=== PATIENT | male | born 1965 | race Caucasian/White ===

== ENCOUNTER 2016-11-22 | Outpatient (CLI) | payer MEDICAID | END 2016-11-22 09:37 | disposition critical access hospital (66) | CPT/HCPCS: A0425; A0429 ==

== ENCOUNTER 2016-11-22 10:05 | Inpatient (IN) | payer MEDICAID ==
[2016-11-22] MEDS ORDERED: LORazepam 2 MG/ML SYRINGE IVP STA ×2 (10:21→11:55)
[2016-11-22] MEDS ORDERED: SODIUM CHLORIDE 0.9% 1,000 ML IV ONE (10:21)
[2016-11-22] MEDS ORDERED: FOLIC ACID INJ 1 MG, THIAMINE INJ 100 MG, MAGNESIUM SULFATE 2 GM, MULTIVITAMIN 10 ML in... IV STA ×5 (10:22)
[2016-11-22] MEDS ORDERED: LORazepam 2 MG/ML SYRINGE ONE ×2 (10:36→11:55)
[2016-11-22] MEDS ORDERED: HYDROcod/ACETAM 10 MG/325 MG TABLET PO PRN (13:24)
[2016-11-22] MEDS ORDERED: PROCHLORPERAZINE 10 MG/2 ML VIAL IVP PRN (13:24)
[2016-11-22] MEDS ORDERED: ONDANSETRON 4 MG/2 ML VIAL IVP PRN (13:24)
[2016-11-22] MEDS ORDERED: ACETAMINOPHEN 325 MG TABLET PO PRN (13:24)
[2016-11-22] MEDS ORDERED: MAGNESIUM SULFATE 2 GRAM 50 ML IV SCH (13:24)
[2016-11-22] MEDS ORDERED: HYDROcod/ACETAM 5/325 MG TABLET PO PRN (13:24)
[2016-11-22] MEDS: LORazepam 2 MG/ML SYRINGE IVP PRN ×2 (14:37→20:44)
[2016-11-22] MEDS: SODIUM CHLORIDE FLUSH 0.9% 10 ML SYRINGE IVP SCH ×2 (14:38→17:33)
[2016-11-22] MEDS: D5NS W/20 MEQ KCL 1,000 ML IV SCH (15:06)
[2016-11-22] MEDS: PANTOPRAZOLE 40 MG VIAL IVP SCH (17:32)
[2016-11-22] MEDS: SODIUM CHLORIDE FLUSH 0.9% 10 ML SYRINGE IVP PRN ×2 (17:33→20:45)
[2016-11-23] MEDS: PANTOPRAZOLE 40 MG VIAL IVP SCH ×2 (06:14→16:28)
[2016-11-23] MEDS: SODIUM CHLORIDE FLUSH 0.9% 10 ML SYRINGE IVP SCH ×3 (06:15→20:01)
[2016-11-23] MEDS: D5NS W/20 MEQ KCL 1,000 ML IV SCH ×3 (07:19→21:53)
[2016-11-23] MEDS: LORazepam 2 MG/ML SYRINGE IVP PRN ×4 (07:50→13:39)
[2016-11-23] MEDS: POLYETHYLENE GLYCOL 3350 17 GM PACKET PO SCH (09:50)
[2016-11-23] MEDS: ENOXAPARIN 40 MG/0.4 ML SYRINGE SUBQ SCH (09:55)
[2016-11-23] MEDS: MULTIVITAMIN 10 ML, THIAMINE INJ 100 MG, FOLIC ACID INJ 1 MG in SODIUM CHLORIDE 0.9% 1,... IV SCH (10:02)
[2016-11-23] MEDS: SODIUM CHLORIDE FLUSH 0.9% 10 ML SYRINGE IVP PRN (13:39)
[2016-11-24] MEDS: LORazepam 2 MG/ML SYRINGE IVP PRN ×17 (00:55→23:36)
[2016-11-24] MEDS: PANTOPRAZOLE 40 MG VIAL IVP SCH ×2 (07:14→16:57)
[2016-11-24] MEDS: SODIUM CHLORIDE FLUSH 0.9% 10 ML SYRINGE IVP SCH ×3 (07:14→16:57)
[2016-11-24] MEDS: D5NS W/20 MEQ KCL 1,000 ML IV SCH ×2 (07:15→15:47)
[2016-11-24] MEDS: MULTIVITAMIN 10 ML, THIAMINE INJ 100 MG, FOLIC ACID INJ 1 MG in SODIUM CHLORIDE 0.9% 1,... IV SCH (08:31)
[2016-11-24] MEDS: ENOXAPARIN 40 MG/0.4 ML SYRINGE SUBQ SCH (08:31)
[2016-11-24] MEDS: POLYETHYLENE GLYCOL 3350 17 GM PACKET PO SCH (08:31)
[2016-11-24] MEDS: SODIUM CHLORIDE FLUSH 0.9% 10 ML SYRINGE IVP PRN ×5 (10:17→16:57)
[2016-11-24] MEDS ORDERED: POTASSIUM PHOSPHATE 21 MMOL in SODIUM CHLORIDE 0.9% 250 ML IV ONE (12:00)
[2016-11-24] MEDS ORDERED: LORazepam 2 MG/ML SYRINGE IVP ONE (13:15)
[2016-11-24] MEDS ORDERED: HALOPERIDOL 5 MG/ML VIAL IM ONE (20:45)
[2016-11-25] MEDS: LORazepam 2 MG/ML SYRINGE IVP PRN ×6 (00:42→13:13)
[2016-11-25] MEDS: SODIUM CHLORIDE FLUSH 0.9% 10 ML SYRINGE IVP SCH ×3 (01:09→21:41)
[2016-11-25] MEDS: D5NS W/20 MEQ KCL 1,000 ML IV SCH ×3 (02:04→22:04)
[2016-11-25] MEDS: PANTOPRAZOLE 40 MG VIAL IVP SCH ×2 (06:17→18:47)
[2016-11-25] MEDS ORDERED: MAGNESIUM SULFATE 1 GM in SODIUM CHLORIDE 0.9% 50 ML IV SCH (06:32)
[2016-11-25] MEDS ORDERED: MAGNESIUM SULFATE 2 GM in SODIUM CHLORIDE 0.9% 50 ML IV SCH (09:16)
[2016-11-25] MEDS ORDERED: MAGNESIUM SULFATE 2 GRAM 50 ML IV ONE (09:30)
[2016-11-25] MEDS ORDERED: POTASSIUM PHOSPHATE 15 MMOL in SODIUM CHLORIDE 0.9% 250 ML IV ONE (10:00)
[2016-11-25] MEDS: MULTIVITAMIN 10 ML, THIAMINE INJ 100 MG, FOLIC ACID INJ 1 MG in SODIUM CHLORIDE 0.9% 1,... IV SCH (11:04)
[2016-11-25] MEDS: ENOXAPARIN 40 MG/0.4 ML SYRINGE SUBQ SCH (11:20)
[2016-11-25] MEDS: POLYETHYLENE GLYCOL 3350 17 GM PACKET PO SCH (11:21)
[2016-11-25] MEDS: NICOTINE 21 MG PATCH TOP SCH (11:25)
[2016-11-25] MEDS: SODIUM CHLORIDE FLUSH 0.9% 10 ML SYRINGE IVP PRN (13:13)
[2016-11-26] MEDS: D5NS W/20 MEQ KCL 1,000 ML IV SCH ×2 (17:35→19:32)
[2016-11-26] MEDS: SODIUM CHLORIDE FLUSH 0.9% 10 ML SYRINGE IVP SCH ×3 (17:35→20:51)
[2016-11-26] MEDS: PANTOPRAZOLE 40 MG VIAL IVP SCH ×2 (17:35→17:36)
[2016-11-26] MEDS: ENOXAPARIN 40 MG/0.4 ML SYRINGE SUBQ SCH (17:35)
[2016-11-26] MEDS: NICOTINE 21 MG PATCH TOP SCH (17:36)
[2016-11-26] MEDS: MULTIVITAMIN 10 ML, THIAMINE INJ 100 MG, FOLIC ACID INJ 1 MG in SODIUM CHLORIDE 0.9% 1,... IV SCH (17:36)
[2016-11-26] MEDS: POLYETHYLENE GLYCOL 3350 17 GM PACKET PO SCH (17:36)
[2016-11-27] MEDS: D5NS W/20 MEQ KCL 1,000 ML IV SCH ×2 (04:02→20:18)
[2016-11-27] MEDS: SODIUM CHLORIDE FLUSH 0.9% 10 ML SYRINGE IVP SCH ×3 (06:27→20:18)
[2016-11-27] MEDS: PANTOPRAZOLE 40 MG VIAL IVP SCH ×2 (06:35→16:55)
[2016-11-27] MEDS: MULTIVITAMIN 10 ML, THIAMINE INJ 100 MG, FOLIC ACID INJ 1 MG in SODIUM CHLORIDE 0.9% 1,... IV SCH (08:56)
[2016-11-27] MEDS: NICOTINE 21 MG PATCH TOP SCH (08:56)
[2016-11-27] MEDS: ENOXAPARIN 40 MG/0.4 ML SYRINGE SUBQ SCH (08:56)
[2016-11-27] MEDS: POLYETHYLENE GLYCOL 3350 17 GM PACKET PO SCH (08:59)
[2016-11-27] MEDS: MAGNESIUM OXIDE 400 MG TABLET PO SCH (09:07)
[2016-11-27] MEDS ORDERED: MAGNESIUM HYDROXIDE 2,400 MG/30 ML UDC PO PRN (18:03)
[2016-11-28] MEDS: D5NS W/20 MEQ KCL 1,000 ML IV SCH (01:16)
[2016-11-28] MEDS: SODIUM CHLORIDE FLUSH 0.9% 10 ML SYRINGE IVP SCH ×3 (06:34→16:26)
[2016-11-28] MEDS: PANTOPRAZOLE 40 MG VIAL IVP SCH ×2 (06:41→16:26)
[2016-11-28] MEDS: ENOXAPARIN 40 MG/0.4 ML SYRINGE SUBQ SCH (08:44)
[2016-11-28] MEDS: NICOTINE 21 MG PATCH TOP SCH (08:44)
[2016-11-28] MEDS: FOLIC ACID 1 MG TABLET PO SCH (08:45)
[2016-11-28] MEDS: MULTIVITAMIN TABLET PO SCH (08:45)
[2016-11-28] MEDS: MAGNESIUM OXIDE 400 MG TABLET PO SCH (08:45)
[2016-11-28] MEDS: THIAMINE 100 MG TABLET PO SCH (08:45)
[2016-11-28] MEDS: POLYETHYLENE GLYCOL 3350 17 GM PACKET PO SCH (11:37)
[2016-11-29] MEDS: SODIUM CHLORIDE FLUSH 0.9% 10 ML SYRINGE IVP SCH (05:19)
[2016-11-29] MEDS: PANTOPRAZOLE 40 MG VIAL IVP SCH (06:50)
[2016-11-29] MEDS: SODIUM CHLORIDE FLUSH 0.9% 10 ML SYRINGE IVP PRN (06:51)
[2016-11-29] MEDS: MULTIVITAMIN TABLET PO SCH (09:18)
[2016-11-29] MEDS: POLYETHYLENE GLYCOL 3350 17 GM PACKET PO SCH (09:18)
[2016-11-29] MEDS: FOLIC ACID 1 MG TABLET PO SCH (09:18)
[2016-11-29] MEDS: THIAMINE 100 MG TABLET PO SCH (09:18)
[2016-11-29] MEDS: MAGNESIUM OXIDE 400 MG TABLET PO SCH (09:19)
[2016-11-29] MEDS: ENOXAPARIN 40 MG/0.4 ML SYRINGE SUBQ SCH (09:19)
[2016-11-29] MEDS: NICOTINE 21 MG PATCH TOP SCH (09:19)
== END 2016-11-29 12:00 | disposition home or self-care (01) | DRG 896 ==
DX: F10.231 Alcohol dependence with withdrawal delirium (principal); G93.41 Metabolic encephalopathy; E87.2 Acidosis; N17.9 Acute kidney failure, unspecified; E83.39 Other disorders of phosphorus metabolism; E83.42 Hypomagnesemia; G62.1 Alcoholic polyneuropathy; K76.0 Fatty (change of) liver, not elsewhere classified; K70.9 Alcoholic liver disease, unspecified; I15.8 Other secondary hypertension; F17.210 Nicotine dependence, cigarettes, uncomplicated; Z78.1 Physical restraint status; Z91.81 History of falling

== ENCOUNTER 2016-12-05 14:00 | Outpatient (CLI) | payer MEDICAID | END 2016-12-05 14:01 | disposition home or self-care (01) | DX: Z12.11 Encounter for screening for malignant neoplasm of colon (principal) ==

== ENCOUNTER 2016-12-07 08:27 | Outpatient (CLI) | payer MEDICAID | END 2016-12-07 08:28 | disposition home or self-care (01) | DX: R03.0 Elevated blood-pressure reading, without diagnosis of hypertension (principal) ==

== ENCOUNTER 2016-12-08 08:06 | Outpatient (CLI) | payer MEDICAID ==
[2016-12-08 13:29] LABS: FOLATE 15.37 ng/mL (5.90 - >24.8)
== END 2016-12-08 08:07 | disposition home or self-care (01) ==
LOC: LAB.F 08:06
PROVIDERS: ATTEND Nurse Practitioner Family
DX: D64.9 Anemia, unspecified (principal)
CPT/HCPCS: 36415; 82607; 82746

== ENCOUNTER 2017-01-04 08:53 | Outpatient (CLI) | payer MEDICAID | END 2017-01-04 08:54 | disposition home or self-care (01) | DX: R89.1 Abnormal level of hormones in specimens from other organs, systems and tissues (principal); D64.9 Anemia, unspecified ==

== ENCOUNTER 2017-05-01 14:12 | Outpatient (CLI) | payer MEDICAID ==
--- NOTE | 2017-05-02 11:23 | XRAY Report ---
EXAM: BILATERAL SHOULDER RADIOGRAPHY EXAM DATE: 05/01/2017 02:51 PM. CLINICAL HISTORY: SHOULDER PX, BILATERAL. COMPARISON: None. TECHNIQUE: 2 views. FINDINGS: Bones: No fracture or bone lesion. Joints: Minimal degenerative change of the glenohumeral and acromioclavicular joints bilaterally. Soft tissues: The visualized hemithoraces is unremarkable. No soft tissue swelling. IMPRESSION: Minimal early degenerative changes. No acute process. [facility] Referring Provider Line: [phone] SITE ID: [id number]
== END 2017-05-01 14:13 | disposition home or self-care (01) ==
LOC: DI.S 14:12
PROVIDERS: ATTEND Nurse Practitioner Family
DX: M19.012 Primary osteoarthritis, left shoulder (principal); M19.011 Primary osteoarthritis, right shoulder

== ENCOUNTER 2017-06-30 08:07 | Outpatient (CLI) | payer MEDICAID ==
[2017-06-30 19:19] LABS: BASOPHILS # (AUTO) 0.1 10^3/uL (0.0-0.1); EOSINOPHILS # (AUTO) 0.1 10^3/uL (0.0-0.7); EOSINOPHILS % (AUTO) 2.4 %; HCT - HEMATOCRIT 42.3 % (42.0-52.0); HGB - HEMOGLOBIN 14.3 g/dL (14.0-18.0); LYMPHOCYTES # (AUTO) 2.1 10^3/uL (1.5-3.5); LYMPHOCYTES % (AUTO) 35.8 %; MEAN CORPUSCULAR HEMOGLOBIN 33.6 pg (27.0-31.0); MEAN CORPUSCULAR HGB CONC 33.9 g/dL (32.0-36.0); MEAN CORPUSCULAR VOLUME 99.4 fL (80.0-94.0); MEAN PLATELET VOLUME 9.2 fL (7.4-11.4); NEUTROPHILS # (AUTO) 2.7 10^3/uL (1.5-6.6); NEUTROPHILS % (AUTO) 44.8 %; NUCLEATED RED BLOOD CELLS AUTO 0.2 /100WBC; RED BLOOD COUNT 4.25 10^6/uL (4.70-6.10)
[2017-06-30 20:11] LABS: ALBUMIN/GLOBULIN RATIO 1.5 (1.0-2.2); BILIRUBIN,TOTAL 0.8 mg/dL (0.2-1.0); BUN - BLOOD UREA NITROGEN 11 mg/dL (6-20); CALCIUM 9.2 mg/dL (8.5-10.3); CARBON DIOXIDE - CO2 25 mmol/L (21-32); CHLORIDE 105 mmol/L (101-111); CHOL/HDL RATIO 2.4 (<5.0); CHOLESTEROL 232 mg/dL; CREATININE 0.7 mg/dL (0.6-1.2); GFR - MDRD 118 (>89); GLUCOSE 100 mg/dL (70-100); HDL CHOLESTEROL 95 mg/dL; POTASSIUM 3.9 mmol/L (3.5-5.0); SODIUM 141 mmol/L (135-145); TOTAL PROTEIN 7.9 g/dL (6.7-8.2); TRIGLYCERIDES 26 mg/dL
[2017-06-30 20:38] LABS: LDL CHOLESTEROL,DIRECT 42 mg/dL
== END 2017-06-30 08:08 | disposition home or self-care (01) ==
LOC: LAB.F 08:07
PROVIDERS: ATTEND Nurse Practitioner Family
DX: R63.4 Abnormal weight loss (principal); Z13.220 Encounter for screening for lipoid disorders; Z12.5 Encounter for screening for malignant neoplasm of prostate; D64.9 Anemia, unspecified
CPT/HCPCS: 36415; 80050; 80061; 84153

== ENCOUNTER 2017-10-16 10:50 | Outpatient (CLI) | payer MEDICAID ==
--- NOTE | 2017-10-17 09:04 | XRAY Report ---
EXAM: BILATERAL HIPS AND PELVIS: 10/16/2017 CLINICAL INDICATION: Bilateral hip pain. FINDINGS: Frontal view of the hips and pelvis and bilateral frogleg lateral views of the hips demonstrate no evidence of fracture or dislocation. The joint spaces are preserved. No radiopaque foreign body is seen in the soft tissues. IMPRESSION: NORMAL BILATERAL HIPS AND PELVIS. TD: 10/16/2017 15:47 [facility]
== END 2017-10-16 10:51 | disposition home or self-care (01) ==
LOC: DI.S 10:50
PROVIDERS: ATTEND Nurse Practitioner Family
DX: M25.552 Pain in left hip (principal); M25.551 Pain in right hip
CPT/HCPCS: 73521

== ENCOUNTER 2017-12-05 15:37 | Emergency (ER) | payer MEDICAID ==
[2017-12-05 16:09] VITALS: BP 144/98
--- NOTE | 2017-12-05 17:03 | ED Physician Documentation ---
PD HPI HEAD INJURY - Stated complaint Stated Complaint: FACE LAC - Chief complaint Chief Complaint: Laceration - History obtained from History obtained from: Patient - History of Present Illness Mechanism of head injury: Laceration (circular cutting disc at work) Where head injury occurred: Work Timing - onset: Today (earlier today, came to ED after done the job.) Location of injury: Right (right cheek) Quality of pain: Aching Associated symptoms: No: LOC, AMS Symptoms worsen with: Palpation Contributing factors: No: Anticoagulated, Intoxicated Similar symptoms before: Has not had sx before Recently seen: Not recently seen Review of Systems Constitutional: denies: Fever, Chills Eyes: denies: Loss of vision, Decreased vision Neurologic: denies: Generalized weakness, Focal weakness, Numbness PD PAST MEDICAL HISTORY - Past Medical History Past Medical History: Yes Cardiovascular: None Respiratory: None Neuro: None Endocrine/Autoimmune: None GI: None : None HEENT: Other Psych: None Musculoskeletal: None Derm: None - Past Surgical History Past Surgical History: Yes - Present Medications Home Medications: Ambulatory Orders Medication Instructions Recorded Confirmed No Known Home Medications [No 12/05/17 12/05/17 Known Home Medications] - Allergies Allergies/Adverse Reactions: Allergies Allergy/AdvReac Type Severity Reaction Status Date / Time No Known Drug Allergies Allergy Verified 12/05/17 16:09 - Social History Does the pt smoke?: No Smoking Status: Never smoker Does the pt drink ETOH?: Yes Does the pt have substance abuse?: No - Immunizations Immunizations are current?: Yes PD ED PE NORMAL - Vitals Vital signs reviewed: Yes - General General: Alert and oriented X 3, No acute distress, Well developed/nourished - HEENT HEENT: PERRL, EOMI, Other (right cheek with several superficial lacerations in a row and then there is a flap lac about 2.5 cm that lifts to subcut tissue. No FB. No bleeding at this time. Does not go to muscle. Normal movement of face muscles. Normal sensation of the cheek, lip, nose. ) - Neck Neck: Supple, no meningeal sign, No bony TTP, No adenopathy Results - Vitals Vitals: Oxygen O2 Source [With Activity] Room air O2 Source [Without Activity] Room air O2 Source Room air Procedures - Laceration (location) right cheek Length in cm: 2.5 Wound type: Flap, Into subcut fat, Clean Neurovascular status: Sensory intact, Motor intact, Vascular intact Anesthesia: Lidocaine 1% with epi Wound Preparation: Wound explored, Wound edges modified. No: FB identified Skin layer closure: Nylon, Running, Size #-0 - enter number (5), Sutures - enter # (8) Other: Patient tolerated well, No complications, Neurovascular intact, Dressing applied, Tetanus UTD PD MEDICAL DECISION MAKING - ED course Complexity details: considered differential, d/w patient Departure - Departure Disposition: 01 Home, Self Care Clinical Impression: Facial laceration Qualifiers: Encounter type: initial encounter Qualified Code(s): S01.81XA - Laceration without foreign body of other part of head, initial encounter Condition: Stable Record reviewed to determine appropriate education?: Yes Instructions: ED Laceration Facial Sutr Tape Follow-Up: Jane Aguilar ARNP [Primary Care Provider] - Comments: It is okay to wash and shower. Clean off the wound twice a day with soap and water, or peroxide and water. Apply some antibiotic ointment to it to keep it moist. Also to watch for signs of infection such as purulence, redness or increasing pain. Return to your primary care or the ER at the specified time for suture removal. Suture removal 7-8 days. Discharge Date/Time: 12/05/17 17:39
== END 2017-12-05 17:39 | disposition home or self-care (01) ==
LOC: ED 15:37
DX: S01.411A Laceration without foreign body of right cheek and temporomandibular area, initial encounter (principal); X58.XXXA Exposure to other specified factors, initial encounter; Y99.0 Civilian activity done for income or pay
CPT/HCPCS: 12011; 99283

== ENCOUNTER 2017-12-08 16:16 | Outpatient (CLI) | payer MEDICAID ==
--- NOTE | 2017-12-08 16:52 | CT Preliminary Report ---
Exam: CT HEAD W/O IMPRESSION: Normal head CT. [facility] SITE ID: [id number]
--- NOTE | 2017-12-08 17:20 | CT Report ---
EXAM: CT HEAD EXAM DATE: 12/08/2017 04:35 PM. CLINICAL HISTORY: Six foot fall from a ladder 3 days ago. No loss of consciousness. Patient presents with headaches, confusion, difficulty with memory. COMPARISON: 11/22/2016. TECHNIQUE: Multiaxial CT images were obtained from the foramen magnum to the vertex. Reformats: Coron al. IV contrast: None. In accordance with CT protocol optimization, one or more of the following dose reduction techniques w ere utilized for this exam: automated exposure control, adjustment of mA and/or KV based on patient s ize, or use of iterative reconstructive technique. FINDINGS: Parenchyma: No intraparenchymal hemorrhage. No evidence of mass, midline shift, or CT findings of inf arction. García-white differentiation is distinct. Extraaxial Spaces: Normal for age. No subdural or epidural collections identified. Ventricles: Normal in size and position. Sinuses and Orbits: Imaged paranasal sinuses, orbits, and mastoids show no significant abnormality. Bones: No evidence of fracture or calvarial defect. Other: None. IMPRESSION: Normal head CT. [facility] Referring Provider Line: [phone] SITE ID: [id number]
== END 2017-12-08 16:17 | disposition home or self-care (01) ==
LOC: DI 16:16
PROVIDERS: ATTEND Nurse Practitioner Family
DX: S06.0X0A Concussion without loss of consciousness, initial encounter (principal)
CPT/HCPCS: 70450

== ENCOUNTER 2018-02-12 16:11 | Outpatient (CLI) | payer MEDICAID | END 2018-02-12 16:12 | disposition critical access hospital (66) | LOC: EMS 16:11 | PROVIDERS: ATTEND Surgery | DX: Z72.89 Other problems related to lifestyle (principal) | CPT/HCPCS: A0425; A0429 ==

== ENCOUNTER 2018-02-12 16:39 | Emergency (ER) | payer MEDICAID ==
--- NOTE | 2018-02-12 16:48 | ED Physician Documentation ---
History of Present Illness - Stated complaint Stated Complaint: ETOH/ DETOX - History obtained from History obtained from: Patient, EMS - History of Present Illness Timing: Today Pain level max: 0 Pain level now: 0 Improved by: nothing Worsened by: nothing - Additonal information Additional information: Pt is a heavy alcoholic and states he wants to look at going to detox for his alcoholism. States that he has never had seizures, thinks he may have had hallucinations once, but is unsure. Last drink 2 hrs [employer]. Review of Systems Ten Systems: 10 systems reviewed and negative Constitutional: denies: Fever, Chills Eyes: denies: Decreased vision, Photophobia Ears: denies: Ear pain Nose: denies: Rhinorrhea / runny nose, Congestion Throat: denies: Sore throat Cardiac: denies: Chest pain / pressure Respiratory: denies: Cough GI: denies: Abdominal Pain, Nausea, Vomiting, Diarrhea : denies: Dysuria Skin: denies: Rash Musculoskeletal: denies: Neck pain, Back pain Neurologic: denies: Headache PD PAST MEDICAL HISTORY - Past Medical History Cardiovascular: None Respiratory: None Neuro: None Endocrine/Autoimmune: None GI: None : None HEENT: Other Psych: None Musculoskeletal: None Derm: None - Past Surgical History Past Surgical History: Yes - Present Medications Home Medications: Ambulatory Orders Medication Instructions Recorded Confirmed No Known Home Medications [No 12/05/17 02/12/18 Known Home Medications] - Allergies Allergies/Adverse Reactions: Allergies Allergy/AdvReac Type Severity Reaction Status Date / Time No Known Drug Allergies Allergy Verified 02/12/18 16:41 - Social History Does the pt smoke?: No Smoking Status: Never smoker Does the pt drink ETOH?: Yes Does the pt have substance abuse?: No - Immunizations Immunizations are current?: Yes PD ED PE NORMAL - Vitals Vital signs reviewed: Yes - General General: Alert and oriented X 3, No acute distress, Well developed/nourished - HEENT HEENT: PERRL, Moist mucous membranes - Neck Neck: Supple, no meningeal sign - Cardiac Cardiac: RRR, Strong equal pulses - Respiratory Respiratory: No respiratory distress, Clear bilaterally - Abdomen Abdomen: Soft, Non tender, Non distended - Derm Derm: Warm and dry - Extremities Extremities: No edema, No calf tenderness / cord - Neuro Neuro: Alert and oriented X 3 - Psych Psych: Normal mood, Normal affect Results - Vitals Vitals: Vital Signs - 24 hr 02/12/18 02/12/18 02/12/18 16:52 16:56 18:53 Temperature 36.9 C Heart Rate 87 100 Respiratory 18 18 Rate Blood Pressure 126/81 H 125/86 H O2 Saturation 90 L 95 96 02/12/18 02/12/18 02/12/18 19:30 20:00 20:30 Temperature Heart Rate 88 85 95 Respiratory 16 16 16 Rate Blood Pressure 123/85 H 117/83 H 125/83 H O2 Saturation 97 95 95 02/12/18 21:00 Temperature Heart Rate 96 Respiratory 16 Rate Blood Pressure 116/83 H O2 Saturation 97 Oxygen O2 Source [With Activity] Room air O2 Source [Without Activity] Room air O2 Source Room air - Labs Labs: Laboratory Tests 02/12/18 02/12/18 02/12/18 17:01 17:01 19:24 WBC 5.3 RBC 4.46 L Hgb 14.9 Hct 44.7 MCV 100.3 H MCH 33.4 H MCHC 33.3 RDW 14.7 Plt Count 125 L MPV 8.6 Neut # 2.7 Lymph # 1.6 [place] # 0.6 Eos # 0.1 Baso # 0.2 H Absolute Nucleated RBC 0.01 Nucleated RBC % 0.1 Sodium 138 Potassium 3.9 Chloride 98 L Carbon Dioxide 23 Anion Gap 17.0 H BUN 15 Creatinine 0.6 Estimated GFR (MDRD) 141 Glucose 93 Calcium 9.0 Total Bilirubin 0.7 AST 139 H ALT 77 H Alkaline Phosphatase 101 Total Protein 8.4 H Albumin 4.8 Globulin 3.7 Albumin/Globulin Ratio 1.3 Lipase 51 Salicylates < 6.0 Urine Opiates Screen NEGATIVE Ur Oxycodone Screen NEGATIVE Urine Methadone Screen NEGATIVE Ur Propoxyphene Screen NEGATIVE Acetaminophen < 10 L Ur Barbiturates Screen NEGATIVE Ur Tricyclics Screen NEGATIVE Ur Phencyclidine Scrn NEGATIVE Ur Amphetamine Screen NEGATIVE U Methamphetamines Scrn NEGATIVE U Benzodiazepines Scrn NEGATIVE Urine Cocaine Screen NEGATIVE U Cannabinoids Screen NEGATIVE Ethyl Alcohol 448.7 PD MEDICAL DECISION MAKING - ED course Complexity details: reviewed results, re-evaluated patient, considered differential, d/w patient ED course: Patient is a 52-year-old gentleman who presents to the emergency department with alcohol intoxication. He states that he would like to go to detox. He is too heavily intoxicated to go to detox at this time and he will be allowed to sober in the emergency department at which point he will be reassessed. Patient will be turned over to oncoming emergency department physician. This document was made in part using voice recognition software. While efforts are made to proofread this document, sound alike and grammatical errors may occur. Departure - Departure Clinical Impression: Alcoholism Alcohol intoxication Qualifiers: Complication of substance-induced condition: uncomplicated Qualified Code(s): F10.920 - Alcohol use, unspecified with intoxication, uncomplicated Condition: Stable
[2018-02-12] MEDS ORDERED: THIAMINE INJ 100 MG, FOLIC ACID INJ 1 MG in SODIUM CHLORIDE 0.9% 100ML 100 ML IV STA (17:03)
[2018-02-12] MEDS ORDERED: MULTIVITAMIN 10 ML in SODIUM CHLORIDE 0.9% 1,000 ML IV STA (17:03)
[2018-02-12] MEDS ORDERED: MAGNESIUM SULFATE 2 GRAM 2 GM/50 ML BAG IV STA (17:03)
[2018-02-12 17:07] LABS: BASOPHILS # (AUTO) 0.2 10^3/uL (0.0-0.1); BASOPHILS % (AUTO) 4.7 %; EOSINOPHILS # (AUTO) 0.1 10^3/uL (0.0-0.7); EOSINOPHILS % (AUTO) 1.3 %; HGB - HEMOGLOBIN 14.9 g/dL (14.0-18.0); LYMPHOCYTES # (AUTO) 1.6 10^3/uL (1.5-3.5); LYMPHOCYTES % (AUTO) 31.1 %; MEAN CORPUSCULAR HEMOGLOBIN 33.4 pg (27.0-31.0); MEAN CORPUSCULAR HGB CONC 33.3 g/dL (32.0-36.0); MEAN CORPUSCULAR VOLUME 100.3 fL (80.0-94.0); MEAN PLATELET VOLUME 8.6 fL (7.4-11.4); MONOCYTES # (AUTO) 0.6 10^3/uL (0.0-1.0); MONOCYTES % (AUTO) 11.7 %; NEUTROPHILS # (AUTO) 2.7 10^3/uL (1.5-6.6); NEUTROPHILS % (AUTO) 51.2 %; PLT - PLATELET COUNT 125 10^3/uL (130-450); RED BLOOD COUNT 4.46 10^6/uL (4.70-6.10); RED CELL DISTRIBUTION WIDTH 14.7 % (12.0-15.0); WHITE BLOOD COUNT 5.3 x10^3/uL (4.8-10.8)
[2018-02-12 17:25] LABS: ALBUMIN 4.8 g/dL (3.2-5.5); ALBUMIN/GLOBULIN RATIO 1.3 (1.0-2.2); ALKALINE PHOSPHATASE 101 IU/L (42-121); ALT ALANINE AMINOTRANSFERASE 77 IU/L (10-60); AST ASPARTATE AMINOTRANSFERASE 139 IU/L (10-42); BILIRUBIN,TOTAL 0.7 mg/dL (0.2-1.0); BUN - BLOOD UREA NITROGEN 15 mg/dL (6-20); CARBON DIOXIDE - CO2 23 mmol/L (21-32); CHLORIDE 98 mmol/L (101-111); CREATININE 0.6 mg/dL (0.6-1.2); GFR - MDRD 141 (>89); GLUCOSE 93 mg/dL (70-100); LIPASE 51 U/L (22-51); SALICYLATE < 6.0 mg/dL; SODIUM 138 mmol/L (135-145); TOTAL PROTEIN 8.4 g/dL (6.7-8.2)
[2018-02-12 17:35] LABS: ACETAMINOPHEN < 10 ug/mL (10-30)
[2018-02-12 19:38] LABS: MUDS CUTOFF CONCENTRATIONS CUTOFF CONC BELOW:
[2018-02-12 20:12] LABS: AMPHETAMINE SCREEN,URINE NEGATIVE (NEGATIVE); BENZODIAZEPINES SCREEN, URINE NEGATIVE (NEGATIVE); COCAINE SCREEN URINE NEGATIVE (NEGATIVE); METHADONE SCREEN, URINE NEGATIVE (NEGATIVE); METHAMPHETAMINES SCREEN, URINE NEGATIVE (NEGATIVE); OPIATE SCREEN, URINE NEGATIVE (NEGATIVE); OXYCODONE SCREEN, URINE NEGATIVE (NEGATIVE); PROPOXYPHENE SCREEN, URINE NEGATIVE (NEGATIVE); TRICYCLIC ANTIDEPRESSANT,URINE NEGATIVE (NEGATIVE)
[2018-02-13] MEDS ORDERED: LORazepam 2 MG/ML VIAL IVP STA (05:53)
[2018-02-13 06:00] VITALS: BP 148/88
[2018-02-13] MEDS ORDERED: LORazepam 0.5 MG TABLET PO STA ×3 (07:34→10:35)
--- NOTE | 2018-02-13 07:34 | ED Physician Documentation ---
History of Present Illness - Stated complaint Stated Complaint: ETOH/ DETOX - Chief complaint Chief Complaint: General - Additonal information Additional information: assumed care 7 AM 52 male EtOH abuse to ER for detox placement recent life stressors was drinking heavily yesterday morning fell and hit his face on carpet - no LOC, denies SHETTY and neck pain, no numbness or weakness remained in ED overnight to sober up pending SW assist for detox placement now he has the shakes - received ativan - shakes continue - he states hx DTs with hallucinations but no seizures went to see pt he has abrasions to right side of face and an old bruise to the right occipital scalp, no step off or TTP, PERRL, no ruiz signs, no nasal drainage heart tachy lungs clear but sat 90-93% abd NT moving all ext flushed and feels warm - will check temp and get a CXR and give ativan CXR neg pt now sober and feel his HI and spine can be cleared clinically - denies SHETTY and neck pain and nl neuro exam - has been here in the ED observed for > 12 hr - do not feel imaging needed at this time nurse Casey was able to get pt a bed at detox but pt shaking etc from withdrawal despite ativan and is not able to walk unassisted at this time and cannot go to detox unless he can manage his ADLs - will give more ativan and reassess pt with dec shakes and ambulatory after more ativan and feel stable to go to detox wrote rx for ativan taper per detox facility request pt to go by taxi - dispo is dc to detox as he is not going to another hospital , does not need COBRA forms etc addendum: detox called to say pts sx are worsening and he is unsteady, unable to walk and incontinent - asked that pt be sent back her for me to see and admit for DTs - but they advise will send to [facility] as it is closer - so I called [facility] ER to advise and will send clinicals labs etc PD PAST MEDICAL HISTORY - Past Medical History Cardiovascular: None Respiratory: None Neuro: None Endocrine/Autoimmune: None GI: None : None HEENT: Other Psych: None Musculoskeletal: None Derm: None - Past Surgical History Past Surgical History: Yes - Present Medications Home Medications: Ambulatory Orders Medication Instructions Recorded Confirmed Lorazepam [Ativan] 2 mg PO Q6H #9 tablet 04/17/18 - Allergies Allergies/Adverse Reactions: Allergies Allergy/AdvReac Type Severity Reaction Status Date / Time No Known Drug Allergies Allergy Verified 02/12/18 16:41 - Social History Does the pt smoke?: No Smoking Status: Never smoker Does the pt drink ETOH?: Yes ETOH Use: Liquor Does the pt have substance abuse?: No - Immunizations Immunizations are current?: Yes Results - Vitals Vitals: Vital Signs - 24 hr 02/12/18 02/12/18 02/12/18 16:52 16:56 18:53 Temperature 36.9 C Heart Rate 87 100 Respiratory 18 18 Rate Blood Pressure 126/81 H 125/86 H O2 Saturation 90 L 95 96 02/12/18 02/12/18 02/12/18 19:30 20:00 20:30 Temperature Heart Rate 88 85 95 Respiratory 16 16 16 Rate Blood Pressure 123/85 H 117/83 H 125/83 H O2 Saturation 97 95 95 02/12/18 02/13/18 02/13/18 21:00 00:20 06:00 Temperature Heart Rate 96 97 92 Respiratory 16 18 16 Rate Blood Pressure 116/83 H 123/79 148/88 H O2 Saturation 97 90 L 95 Oxygen O2 Source [With Activity] Room air O2 Source [Without Activity] Room air O2 Source Room air - Labs Labs: Laboratory Tests 02/12/18 02/12/18 02/12/18 17:01 17:01 19:24 WBC 5.3 RBC 4.46 L Hgb 14.9 Hct 44.7 MCV 100.3 H MCH 33.4 H MCHC 33.3 RDW 14.7 Plt Count 125 L MPV 8.6 Neut # 2.7 Lymph # 1.6 [place] # 0.6 Eos # 0.1 Baso # 0.2 H Absolute Nucleated RBC 0.01 Nucleated RBC % 0.1 Sodium 138 Potassium 3.9 Chloride 98 L Carbon Dioxide 23 Anion Gap 17.0 H BUN 15 Creatinine 0.6 Estimated GFR (MDRD) 141 Glucose 93 Calcium 9.0 Total Bilirubin 0.7 AST 139 H ALT 77 H Alkaline Phosphatase 101 Total Protein 8.4 H Albumin 4.8 Globulin 3.7 Albumin/Globulin Ratio 1.3 Lipase 51 Salicylates < 6.0 Urine Opiates Screen NEGATIVE Ur Oxycodone Screen NEGATIVE Urine Methadone Screen NEGATIVE Ur Propoxyphene Screen NEGATIVE Acetaminophen < 10 L Ur Barbiturates Screen NEGATIVE Ur Tricyclics Screen NEGATIVE Ur Phencyclidine Scrn NEGATIVE Ur Amphetamine Screen NEGATIVE U Methamphetamines Scrn NEGATIVE U Benzodiazepines Scrn NEGATIVE Urine Cocaine Screen NEGATIVE U Cannabinoids Screen NEGATIVE Ethyl Alcohol 448.7 Departure - Departure Disposition: 01 Home, Self Care Clinical Impression: Alcoholism Alcohol intoxication Qualifiers: Complication of substance-induced condition: uncomplicated Qualified Code(s): F10.920 - Alcohol use, unspecified with intoxication, uncomplicated Condition: Stable Instructions: ED Withdrawal Alcohol Prescriptions: Lorazepam [Ativan] 2 mg PO Q6H #9 tablet Comments: Take the taxi directly to detox Take your prescription with you - you will need the ativan to manage the symptoms of withdrawal Discharge Date/Time: 02/13/18 11:30
--- NOTE | 2018-02-13 08:19 | XRAY Report ---
EXAM: CHEST RADIOGRAPHY EXAM DATE: 02/13/2018 07:57 AM. CLINICAL HISTORY: Cough hypoxia. COMPARISON: 11/22/2016. TECHNIQUE: 2 views. FINDINGS: Lungs/Pleura: No focal opacities evident. No pleural effusion. No pneumothorax. Normal volumes. Mediastinum: Heart and mediastinal contours are unremarkable. Other: None. IMPRESSION: No radiographically apparent acute abnormality in the chest. No significant change from p rior. [facility] Referring Provider Line: [phone] SITE ID: [id number]
== END 2018-02-13 11:30 | disposition home or self-care (01) ==
LOC: EDUNIT# → ED 16:39
DX: F10.920 Alcohol use, unspecified with intoxication, uncomplicated (principal)
CPT/HCPCS: 36415; 71046; 80053; 80306; 80307; 80320; 80329; 83690; 85025; 96365; 96368; 99284; A9270; J2060; J3411

== ENCOUNTER 2018-07-27 19:01 | Outpatient (CLI) | payer MEDICAID | END 2018-07-27 19:02 | disposition critical access hospital (66) | LOC: EMS 19:01 | PROVIDERS: ATTEND Surgery | DX: R56.9 Unspecified convulsions (principal) | CPT/HCPCS: A0425; A0427; A0999 ==

== ENCOUNTER 2018-07-27 19:27 | Inpatient (IN) | payer MEDICAID ==
[2018-07-27] MEDS ORDERED: SODIUM CHLORIDE 0.9% 1,000 ML IV ONE ×2 (20:02→21:22)
[2018-07-27] MEDS ORDERED: chlordiazePOXIDE 25 MG CAPSULE PO STA (20:03)
[2018-07-27 20:32] LABS: BASOPHILS # (AUTO) 0.1 10^3/uL (0.0-0.1); BASOPHILS % (AUTO) 0.9 %; EOSINOPHILS % (AUTO) 0.5 %; LYMPHOCYTES # (AUTO) 0.9 10^3/uL (1.5-3.5); LYMPHOCYTES % (AUTO) 14.6 %; MEAN CORPUSCULAR HEMOGLOBIN 35.7 pg (27.0-31.0); MEAN CORPUSCULAR HGB CONC 34.9 g/dL (32.0-36.0); MEAN CORPUSCULAR VOLUME 102.3 fL (80.0-94.0); MEAN PLATELET VOLUME 8.6 fL (7.4-11.4); MONOCYTES # (AUTO) 0.9 10^3/uL (0.0-1.0); MONOCYTES % (AUTO) 14.2 %; NEUTROPHILS # (AUTO) 4.4 10^3/uL (1.5-6.6); NEUTROPHILS % (AUTO) 69.8 %; PLT - PLATELET COUNT 106 10^3/uL (130-450); RED BLOOD COUNT 3.92 10^6/uL (4.70-6.10); RED CELL DISTRIBUTION WIDTH 14.9 % (12.0-15.0); WHITE BLOOD COUNT 6.3 x10^3/uL (4.8-10.8)
[2018-07-27 20:44] LABS: ALBUMIN 4.5 g/dL (3.2-5.5); ALBUMIN/GLOBULIN RATIO 1.4 (1.0-2.2); ALKALINE PHOSPHATASE 87 IU/L (42-121); ALT ALANINE AMINOTRANSFERASE 44 IU/L (10-60); AST ASPARTATE AMINOTRANSFERASE 60 IU/L (10-42); BILIRUBIN,TOTAL 1.1 mg/dL (0.2-1.0); BUN - BLOOD UREA NITROGEN 10 mg/dL (6-20); CALCIUM 9.4 mg/dL (8.5-10.3); CARBON DIOXIDE - CO2 22 mmol/L (21-32); CHLORIDE 101 mmol/L (101-111); CREATININE 0.8 mg/dL (0.6-1.2); GFR - MDRD 101 (>89); GLUCOSE 129 mg/dL (70-100); LIPASE 40 U/L (22-51); SALICYLATE < 6.0 mg/dL; SODIUM 134 mmol/L (135-145); TOTAL PROTEIN 7.7 g/dL (6.7-8.2)
[2018-07-27 20:46] LABS: ACETAMINOPHEN < 10 ug/mL (10-30)
--- NOTE | 2018-07-27 21:08 | ED Physician Documentation ---
PD HPI SEIZURE - Stated complaint Stated Complaint: SZ - Chief complaint Chief Complaint: Neuro - History obtained from History obtained from: Patient - History of Present Illness Timing - onset: How many days ago (He stopped drinking alcohol 3 days ago and has been having withdrawal symptoms the last 2 days. He states he has been nauseous with only mild vomiting. He has had diarrhea. He complains of upper abdominal pain. He has been shaky and this has been worse today. He states he is unable to walk to the bathroom because of unsteadiness. He denied any visual or auditory hallucinations. He lives with his mother apparently and she heard a thud sound from the next room and went and found him having a seizure today was self-limited and stopped on its own. He is quite shaky at this time. He did have a bite of his tongue. He states he has had alcohol withdrawal significantly in the past and has been hospitalized a couple of times for it. He denies any prior seizures.) Witnessed: Witnessed Number of seizures: Single Description of seizure activity: Generalized Injury during seizure: Bit tongue. No: Head injury, Neck injury History of seizures: No: Known seizure disorder, Prior EtOH wdrawal sz Contributing factors: EtOH withdrawal Similar symptoms before: Diagnosis (Alcohol withdrawal in the past with significant symptoms of required hospitalization. No prior seizures.) Recently seen: Not recently seen Review of Systems Constitutional: reports: Myalgias, Fatigue. denies: Fever, Chills Nose: denies: Rhinorrhea / runny nose, Congestion Throat: denies: Sore throat Cardiac: denies: Chest pain / pressure, Palpitations Respiratory: denies: Dyspnea, Cough GI: reports: Abdominal Pain (upper), Nausea, Diarrhea. denies: Vomiting, Hematemesis, Bloody / black stool : denies: Dysuria, Frequency Skin: reports: Laceration (s) (tongue). denies: Abrasion (s) Musculoskeletal: denies: Neck pain, Back pain Neurologic: reports: Generalized weakness, Seizure. denies: Focal weakness, Numbness, Headache, Head injury PD PAST MEDICAL HISTORY - Past Medical History Cardiovascular: None Respiratory: None Endocrine/Autoimmune: None GI: None : None HEENT: Other Psych: None Musculoskeletal: None Derm: None - Past Surgical History Past Surgical History: Yes - Allergies Allergies/Adverse Reactions: Allergies Allergy/AdvReac Type Severity Reaction Status Date / Time No Known Drug Allergies Allergy Verified 07/27/18 19:47 - Social History Does the pt smoke?: No Smoking Status: Never smoker Does the pt drink ETOH?: Yes ETOH Use: Liquor (He states he drinks 1/5 of liquor daily. He stopped 3 days ago because he wanted to be sober. He had been in detox in January but resumed drinking soon after due to social stresses at home.) Does the pt have substance abuse?: No - Family History Family history: reports: Non contributory - Immunizations Immunizations are current?: Yes - POLST Patient has POLST: No PD ED PE NORMAL - Vitals Vital signs reviewed: Yes - General General: Alert and oriented X 3, Well developed/nourished, Other (shaky and tremoring. Ataxic movements on exam. He needed help to try to walk to bathroom, and was too unsteady. ) - HEENT HEENT: Pharynx benign, Other (has laceration on top of tongue. Posterior pharynx without swelling nor injury. ) - Neck Neck: Supple, no meningeal sign, No adenopathy - Cardiac Cardiac: RRR, No murmur - Respiratory Respiratory: Clear bilaterally - Abdomen Abdomen: Normal bowel sounds, Soft, Non distended, No organomegaly, Other (mild tenderness epigastric area. ) - Back Back: No CVA TTP - Derm Derm: Normal color, Warm and dry - Extremities Extremities: No tenderness to palpate, Normal ROM s pain, No edema, No calf tenderness / cord - Neuro Neuro: Alert and oriented X 3, acid bath mixer 2-12 intact, Other (He has diffuse resting tremor and is worse with intention. He is able to answer questions ap propriately and does not have any visual or auditory hallucinations.) Eye Opening: Spontaneous Motor: Obeys Commands Verbal: Oriented GCS Score: 15 Results - Vitals Vitals: Vital Signs - 24 hr 07/27/18 07/27/18 07/27/18 19:35 21:14 22:15 Temperature 37.3 C Heart Rate 106 H 106 H 100 Respiratory 14 20 20 Rate Blood Pressure 168/107 H 166/103 H 149/89 H O2 Saturation 93 96 94 07/27/18 22:34 Temperature Heart Rate 91 Respiratory 18 Rate Blood Pressure 135/89 H O2 Saturation 95 Oxygen O2 Source [With Activity] Room air O2 Source [Without Activity] Room air O2 Source Room air - Labs Labs: Laboratory Tests 07/27/18 07/27/18 20:22 20:22 WBC 6.3 RBC 3.92 L Hgb 14.0 Hct 40.1 L MCV 102.3 H MCH 35.7 H MCHC 34.9 RDW 14.9 Plt Count 106 L MPV 8.6 Neut # (Auto) 4.4 Lymph # (Auto) 0.9 L [place] # (Auto) 0.9 Eos # (Auto) 0.0 Baso # (Auto) 0.1 Absolute Nucleated RBC 0.00 Nucleated RBC % 0.1 Sodium 134 L Potassium 3.5 Chloride 101 Carbon Dioxide 22 Anion Gap 11.0 BUN 10 Creatinine 0.8 Estimated GFR (MDRD) 101 Glucose 129 H Calcium 9.4 Total Bilirubin 1.1 H AST 60 H ALT 44 Alkaline Phosphatase 87 Total Protein 7.7 Albumin 4.5 Globulin 3.2 Albumin/Globulin Ratio 1.4 Lipase 40 Salicylates < 6.0 Acetaminophen < 10 L Ethyl Alcohol < 5.0 PD MEDICAL DECISION MAKING - ED course Complexity details: re-evaluated patient (He is having improvement with repeat doses of benzodiazepines. However his initial see was score is 18 and he did have a withdrawal seizure. He had a tongue injury with the seizure and is having some discomfort with swallowing. I think his withdrawal is significant enough that he does not treatable with just oral medications at home and is not a good candidate for outpatient treatment at this point. I talked with the hospitalist who will have him in the hospital for further treatment.), considered differential, d/w patient - Sepsis Event Vital Signs: Vital Signs - 24 hr 07/27/18 07/27/18 07/27/18 19:35 21:14 22:15 Temperature 37.3 C Heart Rate 106 H 106 H 100 Respiratory 14 20 20 Rate Blood Pressure 168/107 H 166/103 H 149/89 H O2 Saturation 93 96 94 07/27/18 22:34 Temperature Heart Rate 91 Respiratory 18 Rate Blood Pressure 135/89 H O2 Saturation 95 Oxygen O2 Source [With Activity] Room air O2 Source [Without Activity] Room air O2 Source Room air Departure - Departure Disposition: 66 [facility] DC/Xfer Clinical Impression: Alcoholism Alcohol withdrawal seizure Qualifiers: Complication of substance-induced condition: with unspecified complication Qualified Code(s): F10.239 - Alcohol dependence with withdrawal, unspecified; R56.9 - Unspecified convulsions Condition: Stable Record reviewed to determine appropriate education?: Yes
[2018-07-27] MEDS ORDERED: LORazepam 2 MG/ML VIAL IVP STA ×2 (21:22→22:26)
[2018-07-27] MEDS ORDERED: LIDOCAINE VISCOUS 2% 15 ML UDC MM STA (21:22)
[2018-07-27] MEDS ORDERED: ONDANSETRON 4 MG/2 ML VIAL IVP STA (21:22)
[2018-07-27] MEDS ORDERED: PROCHLORPERAZINE 10 MG/2 ML VIAL IVP PRN (22:45)
[2018-07-27] MEDS ORDERED: ONDANSETRON 4 MG/2 ML VIAL IVP PRN (22:45)
[2018-07-27] MEDS ORDERED: ONDANSETRON ODT 4 MG TABLET TL PRN (22:45)
[2018-07-27] MEDS ORDERED: MAGNESIUM SULFATE 2 GRAM 2 GM/50 ML BAG IV SCH (22:47)
--- NOTE | 2018-07-27 23:02 | HISTORY & PHYSICAL EXAMINATION ---
Chief Complaint - Chief Complaint Chief Complaint: alcohol withdrawal seizure <Lynette Quan Tobin - Last Filed: 07/27/18 23:39> History of Present Illness <Burt Paniagua - Last Filed: 07/27/18 23:07> - Admitted From Admitted From:: ER/Home - History Obtained From Records Reviewed: [facility] History obtained from: Dr. Paniagua and patient Exam Limitations: shakey, tremulous, miserable <Quan,Lynette Tobin - Last Filed: 07/27/18 23:39> - History of Present Illness HPI Comment/Other: He is a middle-aged white male who has a long history of alcohol abuse. In the past when he tried to stop he would have tremors in the go back to alcohol. He was finally admitted for the first time in October 2016 for alcohol withdrawal and severe mental status. He lives with his parents, both of his parents are in their 80s. When he was admitted in October 2016 he had abruptly stopped drinking because he was told to do so prior to an elective cataract surgery. He then returned in January 2018. He came to the emergency room stating that he wanted to look at going into detox for his alcoholism. He was not in withdrawal. He sobered up in the emergency room, and then transferred to [facility]. While at [facility], he was then hospitalized because of severe withdrawal. He did not drink for a few weeks, and is slowly gone back to drinking. He is again decided that he needs to stop drinking and stopped cold turkey 3 days ago. He has been having nausea, minimal vomiting. Positive for diarrhea. Diffuse upper abdominal pain. Shakiness, tremulous. Very unsteady on his feet as he tries to walk around the house or go to the bathroom. No hallucinations. Today his mother heard him go to the bathroom, and then thudding sound, and she went and found him having a seizure. He has bitten his tongue and it hurts. Speech impediment because of it. In the emergency room he is 37.3, pulse 106, blood pressure 168/107. 93% on room air. Tremulous, shaky, diaphoretic. Mildly hyponatremic at 134. Bili mildly elevated at 1.1 and AST 60. Lipase is normal. White cell count is 6.3 hemoglobin is 14 with an MCV of 102. (Burt Paniagua) He is a middle-aged white male who has a long history of alcohol abuse. In the past when he tried to stop he would have tremors in the go back to alcohol. He was finally admitted for the first time in October 2016 for alcohol withdrawal and severe mental status. He lives with his parents, both of his parents are in their 80s. When he was admitted in October 2016 he had abruptly stopped drinking because he was told to do so prior to an elective cataract surgery. He then returned in January 2018. He came to the emergency room stating that he wanted to look at going into detox for his alcoholism. He was not in withdrawal. He sobered up in the emergency room, and then transferred to [facility]. While at [facility], he was then hospitalized because of severe withdrawal. He did not drink for a few weeks, and is slowly gone back to drinking. He is again decided that he needs to stop drinking and stopped cold turkey 3 days ago. He has been having nausea, minimal vomiting. Positive for diarrhea. Diffuse upper abdominal pain. Shakiness, tremulous. Very unsteady on his feet as he tries to walk around the house or go to the bathroom. No hallucinations. Today his mother heard him go to the bathroom, and then thudding sound, and she went and found him having a seizure. He has bitten his tongue and it hurts. Speech impediment because of it. In the emergency room he is 37.3, pulse 106, blood pressure 168/107. 93% on room air. Tremulous, shaky, diaphoretic. Mildly hyponatremic at 134. Bili m ildly elevated at 1.1 and AST 60. Lipase is normal. White cell count is 6.3 hemoglobin is 14 with an MCV of 102. (Quan,Lynette L) History - Past Medical History Cardiovascular: reports: None Respiratory: reports: None Endocrine/Autoimmune: reports: None GI: reports: None : reports: None HEENT: reports: Other (Cataracts with cataract surgery 2017) Psych: reports: None Musculoskeletal: reports: None Derm: reports: Other (Facial laceration with repair due to work-related injury) MRSA Hx?: No - Family & Social History Family History Comment/Other: Dad at 82 years old with multiple myeloma, heart disease, and "had fluid in his lungs" as cause of . Mom is 79 adn healthy. Siblings. Never been , does not have any children Living arrangement: At home Living Situation: With family Social History Notes: Social history he has lived with his mother and father since about 2010. He helps take care of them and is functional with regards to helping them cook, clean. 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 Suffered an injury on the job and was off work when his dad got really sick. Was never able to go back to work because his dad wanted to at home so he took care of his father until he at home and this last year. He gets the groceries, pays the bills, and is a very active person. He is never been has no children. He smokes a pack a day and started smoking approximately age 20. He drinks 1/5 of vodka a day. Cannabis was used for a while when he was a teenager but denies any current cocaine, heroin, LSD, meth amphetamines. - Substance History Use: Uses substance without health or social issues: Tobacco Abuse: Recurrent use of substance despite neg consequences: Alcohol Abuse Issues: Intoxication, Delirium, Hallucinations, Other (Seizures) Dependence: Experiences withdrawal or developed tolerances: Alcohol Dependence Issues: Intoxication, Delusions, Hallucinations, Withdrawal, Other (Seizure) Tobacco Details: Cigarettes (1 pack/day since the age of 16) - POLST Patient has POLST: No POLST Status: Full Code <Lynette Quan - Last Filed: 07/27/18 23:39> Meds/Allgy <Burt Paniagua - Last Filed: 07/27/18 23:07> <Lynette Quan - Last Filed: 07/27/18 23:39> - Allergies Allergies/Adverse Reactions: Allergies Allergy/AdvReac Type Severity Reaction Status Date / Time No Known Drug Allergies Allergy Verified 07/27/18 19:47 Review of Systems - Constitutional Constitutional: denies: Fatigue, Fever, Chills, Malaise - Eyes Eyes: denies: Pain, Irritation, Amaurosis, Blurred vision - Ears, Nose & Throat Ears, Nose & Throat: reports: Hearing loss, Nasal congestion, Postnasal drainage. denies: Tinnitus, Vertigo, Nasal pain, Dentures, Hoarseness - Cardiovascular Cariovascular: reports: Lightheadedness. denies: Irregular heart rate, Palpitations, Chest pain, Edema, Syncope, Exertional dyspnea, Decr. exercise tolerance - Respiratory Respiratory: denies: Cough, Sputum production, Wheezing, Snoring, SOB at rest, SOB with exertion - Gastrointestinal Gastrointestinal: reports: Reflux/heartburn. denies: Abdominal pain, Abdominal distention, Constipation, Diarrhea, Change in bowel habits, Rectal bleeding - Genitourinary Genitourinary: reports: Frequency. denies: Dysuria, Urgency, Hematuria, Incontinence, Flank pain, Nocturia - Musculoskeletal Musculoskeletal: reports: Muscle pain, Back pain. denies: Muscle aches, Stiffness, Muscle weakness - Integumentary Integumentary: denies: Rash, Pruritis, Lesions - Neurological Neurological: reports: General weakness, Headache, Numbness, Abnormal gait (This last week as he stopped cold turkey. He is gotten very shaky on his feet with really bad balance.), Seizures (Today), Incoordination (This week), Slurred speech (Today after he bit his tongue. Having quite a bit of problem trying to enunciate). denies: Focal weakness, Dizziness, Memory problems, Pre-existing deficit - Psychiatric Psychiatric: reports: Anxiety, Delusions (In the past but not now), Hallucinations (In the past but not now) - Endocrine Endocrine: denies: Polyuria, Polydypsia, Polyphagia, Intolerance to cold, Intolerance to heat - Hematologic/Lymphatic Hematologic/Lymphatic: denies: Anemia <Lynette Quan - Last Filed: 07/27/18 23:39> <Burt Paniagua - Last Filed: 07/27/18 23:07> <Lynette Quan - Last Filed: 07/27/18 23:39> Prior Level of Functionality: Independent with regards to his activities of daily living. He is the care provider for both of his elderly parents. He does the cooking, cleaning, driving, paying of bills.He does not use a cane or walker. (Burt Paniagua) Independent with regards to his activities of daily living. He is the care provider for both of his elderly parents. He does the cooking, cleaning, driving, paying of bills.He does not use a cane or walker. (Lynette Quan) Exam - Vital Signs Reviewed Vital Signs: Yes - Physical Exam General Appearance: positive: Moderate distress, Other (Fatigue, slightly shaky, having difficulty speaking because of tongue pain and swelling but oriented to person place not necessarily time. Short statured middle-aged white male quite disheveled, fingernails and toenails with dirt, bad RADHA) Eyes Bilateral: positive: PERRL, EOMI ENT: positive: Dry mucous membranes, Other (Halitosis with poor dentition) Neck: positive: No JVD, Lymphadenopathy (R) (Shotty), Lymphadenopathy (L) (Shotty). negative: Stiff neck, Carotid bruit Respiratory: positive: Chest non-tender, No respiratory distress, Other (Tubular breath sounds that are almost rhonchus but not quite diffusely, no increased use of accessory muscles was speaking to me). negative: Wheezes, Rales, Rhonchi Cardiovascular: positive: Regular rate & rhythm, No murmur, Tachycardia. negative: Gallop/S4, Friction rub Peripheral Pulses: positive: 1+ Abdomen: positive: Non-tender, No organomegaly, Nml bowel sounds, No distention Skin: positive: Warm, Diaphoresis Extremities: positive: Non-tender, Other (Hands and feet are pink and red On the soles and palms) Neurologic/Psychiatric: positive: CN's nml (2-12), Disoriented to time, Weakness, Slurred/abnml speech. negative: Motor nml (Ataxic, tremulous) <Lynette Quan - Last Filed: 07/27/18 23:39> - Vital Signs Vital Signs: Vital Signs x48h Temp Pulse Resp BP Pulse Ox 07/27/18 22:34 91 18 135/89 H 95 07/27/18 22:15 100 20 149/89 H 94 07/27/18 21:14 106 H 20 166/103 H 96 07/27/18 19:35 37.3 C 106 H 14 168/107 H 93 Conclusion/Plan - Lab Results Fish Bones: 07/27/18 20:22 07/27/18 20:22 <Burt Paniagua - Last Filed: 07/27/18 23:07> - Problem List (1) Alcohol withdrawal seizure Conclusion/Plan: Can start anywhere from 12-48 hours after last alcoholic drink but may occur only after 2 hours of abstinence. He is a patient with a long history of chronic alcoholism, and he is in the correct timeframe since the step of seizures happen during the fourth and fifth decades of life. So far he has had a single seizure, but unfortunately he can have a flurry of seizures over a short period of time. If he starts having status epilepticus, this is not consistent with withdrawal associated seizures and we should investigate further causes of seizures. If he does have status epilepticus, benzodiazepines, phenobarbital, or propofol (and very severe cases) can be used. Dilantin it is ineffective in alcohol withdrawal seizures and should not be used. At this time I am opting to use benzodiazepines. He will not be discharged on seizure medications. Plan: Placed in admission status, acute Treatment of alcohol withdrawal Via CIWA protocol Banana bag IV fluids for hydration Urine tox screen is pending for other substances Qualifiers: Complication of substance-induced condition: with unspecified complication Qualified Code(s): F10.239 - Alcohol dependence with withdrawal, unspecified; R56.9 - Unspecified convulsions (2) DTs (delirium tremens) Conclusion/Plan: He is only minimally confused in that he is disoriented. He has tachycardia, mild hypertension, and diaphoresis. So far no hallucinations or delusions. Plan: Monitor oxygen consumption Monitor fluids and electrolytes to make sure that we need to supplement him One IV dose of 2 g of magnesium Banana bag CIWA protocol Social Work Consult for rehab once he's done thru this episode. - Lab Results Fish Bones: 07/27/18 20:22 07/27/18 20:22 <Lynette Quan - Last Filed: 07/27/18 23:39> Core Measures - Anticipated LOS I expect patient to be DC'd or transferred within 96 hours.: Yes - DVT/VTE - Prophylaxis VTE/DVT Device ordered at admit?: Yes <Lynette Quan - Last Filed: 07/27/18 23:39>
[2018-07-27 23:29] LABS: MUDS CUTOFF CONCENTRATIONS CUTOFF CONC BELOW:
[2018-07-27] MEDS ORDERED: FAMOTIDINE 20 MG/2 ML VIAL IVP STA (23:30)
[2018-07-27 23:31] LABS: BILIRUBIN,URINE NEGATIVE (NEGATIVE); GLUCOSE, URINE (UA) NEGATIVE (NEGATIVE); KETONES,URINE (UA) TRACE mg/dL (NEGATIVE); LEUKOCYTE ESTERASE, URINE NEGATIVE (NEGATIVE); NITRITE,URINE NEGATIVE (NEGATIVE); OCCULT BLOOD,URINE TRACE-LYSE (NEGATIVE); PH,URINE 7.5 PH (5.0-7.5); PROTEIN,URINE TRACE mg/dL (NEGATIVE); UROBILINOGEN,URINE 0.2 (NORMAL) E.U./dL (NORMAL)
[2018-07-27 23:32] LABS: CLARITY,URINE CLEAR (CLEAR)
[2018-07-27 23:53] LABS: AMPHETAMINE SCREEN,URINE NEGATIVE (NEGATIVE); BENZODIAZEPINES SCREEN, URINE NEGATIVE (NEGATIVE); COCAINE SCREEN URINE NEGATIVE (NEGATIVE); METHADONE SCREEN, URINE NEGATIVE (NEGATIVE); METHAMPHETAMINES SCREEN, URINE NEGATIVE (NEGATIVE); OPIATE SCREEN, URINE NEGATIVE (NEGATIVE); OXYCODONE SCREEN, URINE NEGATIVE (NEGATIVE); PROPOXYPHENE SCREEN, URINE NEGATIVE (NEGATIVE); TRICYCLIC ANTIDEPRESSANT,URINE NEGATIVE (NEGATIVE)
[2018-07-28] MEDS ORDERED: SODIUM CHLORIDE 0.9% 500 ML IV ONE (00:31)
[2018-07-28] MEDS: SODIUM CHLORIDE FLUSH 0.9% 10 ML SYRINGE IVP PRN ×3 (00:49→13:09)
[2018-07-28] MEDS: SODIUM CHLORIDE FLUSH 0.9% 10 ML SYRINGE IVP SCH ×3 (00:49→16:01)
[2018-07-28] MEDS ORDERED: MAGNESIUM SULFATE 2 GRAM 2 GM/50 ML BAG IV SCH (01:00)
[2018-07-28 06:25] LABS: BASOPHILS # (AUTO) 0.1 10^3/uL (0.0-0.1); BASOPHILS % (AUTO) 1.2 %; EOSINOPHILS # (AUTO) 0.1 10^3/uL (0.0-0.7); EOSINOPHILS % (AUTO) 1.4 %; HGB - HEMOGLOBIN 13.2 g/dL (14.0-18.0); LYMPHOCYTES # (AUTO) 1.5 10^3/uL (1.5-3.5); LYMPHOCYTES % (AUTO) 18.3 %; MEAN CORPUSCULAR HEMOGLOBIN 35.7 pg (27.0-31.0); MEAN CORPUSCULAR HGB CONC 34.6 g/dL (32.0-36.0); MEAN CORPUSCULAR VOLUME 103.2 fL (80.0-94.0); MEAN PLATELET VOLUME 8.4 fL (7.4-11.4); MONOCYTES % (AUTO) 12.8 %; NEUTROPHILS # (AUTO) 5.4 10^3/uL (1.5-6.6); NEUTROPHILS % (AUTO) 66.3 %; PLT - PLATELET COUNT 97 10^3/uL (130-450); RED BLOOD COUNT 3.71 10^6/uL (4.70-6.10); RED CELL DISTRIBUTION WIDTH 14.7 % (12.0-15.0); WHITE BLOOD COUNT 8.1 x10^3/uL (4.8-10.8)
[2018-07-28 06:35] LABS: ALBUMIN 3.9 g/dL (3.2-5.5); ALBUMIN/GLOBULIN RATIO 1.3 (1.0-2.2); BILIRUBIN,TOTAL 1.1 mg/dL (0.2-1.0); CALCIUM 8.7 mg/dL (8.5-10.3); CREATININE 0.7 mg/dL (0.6-1.2); MAGNESIUM 1.9 mg/dL (1.7-2.8)
--- NOTE | 2018-07-28 07:48 | PROVIDER PROGRESS NOTE ---
Subjective - Prog Note Date Prog Note Date: 07/28/18 Prog Note Time: 07:47 - Subjective Pt reports feeling: Improved Subjective: Gabbie complains of mouth soreness related to a tongue injury while he was having a seizure. He denies any new symptoms such as nausea, vomiting, rashes, a new cough, chest pain, or increased shortness of breath. Current Medications - Current Medications Current Medications: Active Medications Acetaminophen (Tylenol) 650 mg PO Q4HR PRN PRN Reason: Pain or Fever > 38C (100.4F) Carboxymethylcellulose (Refresh 1% Ophth Drops) 1 drops EACHEYE Q6HR SOLIS Diazepam (Valium) 5 mg PO Q1H PRN; Protocol PRN Reason: CIWA > 8 Last Admin: 07/28/18 08:18 Dose: 5 mg Multivitamins 10 ml/ Thiamine HCl 100 mg/ Folic Acid 1 mg/Sodium Chloride 1,011.2 mls @ 100 mls/hr IV DAILY [facility] Last Admin: 07/28/18 08:55 Dose: 100 mls/hr Lorazepam (Ativan Inj (Vial)) 2 mg IVP Q30M PRN; Protocol PRN Reason: CIWA >8 Lorazepam (Ativan Inj (Vial)) 1 mg IVP Q3H SOLIS Ondansetron HCl (Zofran Inj) 4 mg IVP Q6HR PRN PRN Reason: Nausea / Vomiting Ondansetron HCl (Zofran Odt) 4 mg TL Q6HR PRN PRN Reason: Nausea / Vomiting Polyethylene Glycol (Miralax) 17 gm PO DAILY [facility] Last Admin: 07/28/18 08:19 Dose: 17 gm Prochlorperazine Edisylate (Compazine Inj) 10 mg IVP Q6HR PRN PRN Reason: Nausea / Vomiting Sodium Chloride (Normal Saline Flush 0.9%) 10 ml IVP PRN PRN PRN Reason: NEEDED PER PROVIDER ORDERS Last Admin: 07/28/18 00:49 Dose: 10 ml Sodium Chloride (Normal Saline Flush 0.9%) 10 ml IVP 0100,0900,1700 [facility] Last Admin: 07/28/18 08:19 Dose: Not Given Multivitamin [Theragran] 1 tab PO DAILY 07/28/18 Objective - Vital Signs/Intake & Output Reviewed Vital Signs: Yes Vital Signs: Vital Signs x48h Temp Pulse Resp BP BP Pulse Ox 07/28/18 07:00 37.2 C 88 16 130/85 H 95 07/28/18 06:00 80 18 133/71 H 95 07/28/18 05:00 81 16 109/63 95 07/28/18 04:00 79 18 126/83 H 96 07/28/18 03:00 86 16 152/82 H 97 07/28/18 02:00 94 16 134/87 H 96 07/28/18 01:00 92 18 133/83 H 96 07/28/18 00:00 94 18 136/83 H 95 Intake & Output: Intake & Output 07/25/18 07/26/18 07/27/18 07/28/18 23:59 23:59 23:59 23:59 Intake Total 2000 100 Output Total 150 250 Balance 1850 -150 - Objective General Appearance: positive: Alert, Moderate distress, Anxious Eyes: OU Scleral icterus ENT: positive: Pharyngeal erythema, Dry mucous membranes Neck: positive: No JVD, Lymphadenopathy (R), Lymphadenopathy (L) Respiratory: positive: Chest non-tender, No respiratory distress, Other (diminished) Cardiovascular: positive: Regular rate & rhythm, No gallop, Systolic murmur Peripheral Pulses: 1+ Radial (R), 1+ Radial (L) Abdomen: positive: Non-tender, Nml bowel sounds, Other (full, soft) Back: positive: Nml inspection Skin: positive: No rash, Warm, Dry, Other (flushed with full body erythema) Extremities: positive: Non-tender, Full ROM, No pedal edema Neurologic/Psychiatric: positive: Disoriented to time, Weakness, Sensory loss, Slurred/abnml speech (impaired speech due to tongue injury.), Depressed mood/affect Reflexes: Bicep (R): 3+, Bicep (L): 3+ - Lab Results Fish Bones: 07/28/18 06:12 07/28/18 06:12 Other Labs: Lab Results x24hrs 07/28/18 07/28/18 07/27/18 Range/Units 06:12 06:12 23:20 WBC 8.1 (4.8-10.8) x10^3/uL RBC 3.71 L (4.70-6.10) 10^6/uL Hgb 13.2 L (14.0-18.0) g/dL Hct 38.3 L (42.0-52.0) % MCV 103.2 H (80.0-94.0) fL MCH 35.7 H (27.0-31.0) pg MCHC 34.6 (32.0-36.0) g/dL RDW 14.7 (12.0-15.0) % Plt Count 97 L (130-450) 10^3/uL MPV 8.4 (7.4-11.4) fL Neut # (Auto) 5.4 (1.5-6.6) 10^3/uL Lymph # (Auto) 1.5 (1.5-3.5) 10^3/uL [place] # (Auto) 1.0 (0.0-1.0) 10^3/uL Eos # (Auto) 0.1 (0.0-0.7) 10^3/uL Baso # (Auto) 0.1 (0.0-0.1) 10^3/uL Absolute Nucleated RBC 0.00 x10^3/uL Nucleated RBC % 0.0 /100WBC Sodium 135 (135-145) mmol/L Potassium 3.5 (3.5-5.0) mmol/L Chloride 103 (101-111) mmol/L Carbon Dioxide 23 (21-32) mmol/L Anion Gap 9.0 (6-13) BUN 8 (6-20) mg/dL Creatinine 0.7 (0.6-1.2) mg/dL Estimated GFR (MDRD) 118 (>89) Glucose 103 H (70-100) mg/dL Calcium 8.7 (8.5-10.3) mg/dL Magnesium 1.9 (1.7-2.8) mg/dL Total Bilirubin 1.1 H (0.2-1.0) mg/dL AST 70 H (10-42) IU/L ALT 38 (10-60) IU/L Alkaline Phosphatase 75 (42-121) IU/L Total Protein 7.0 (6.7-8.2) g/dL Albumin 3.9 (3.2-5.5) g/dL Globulin 3.1 (2.1-4.2) g/dL Albumin/Globulin Ratio 1.3 (1.0-2.2) Lipase (22-51) U/L Urine Color YELLOW Urine Clarity CLEAR (CLEAR) Urine pH 7.5 (5.0-7.5) PH Ur Specific [address] 1.020 (1.002-1.030) Urine Protein TRACE (NEGATIVE) mg/dL Urine Glucose (UA) NEGATIVE (NEGATIVE) mg/dL Urine Ketones TRACE (NEGATIVE) mg/dL Urine Occult Blood TRACE-LYSE (NEGATIVE) Urine Nitrite NEGATIVE (NEGATIVE) Urine Bilirubin NEGATIVE (NEGATIVE) Urine Urobilinogen 0.2 (NORMAL) (NORMAL) E.U./dL Ur Leukocyte Esterase NEGATIVE (NEGATIVE) Ur Microscopic Review NOT INDICATED Urine Culture Comments NOT INDICATED Salicylates mg/dL Urine Opiates Screen NEGATIVE (NEGATIVE) Ur Oxycodone Screen NEGATIVE (NEGATIVE) Urine Methadone Screen NEGATIVE (NEGATIVE) Ur Propoxyphene Screen NEGATIVE (NEGATIVE) Acetaminophen (10-30) ug/mL Ur Barbiturates Screen NEGATIVE (NEGATIVE) Ur Tricyclics Screen NEGATIVE (NEGATIVE) Ur Phencyclidine Scrn NEGATIVE (NEGATIVE) Ur Amphetamine Screen NEGATIVE (NEGATIVE) U Methamphetamines Scrn NEGATIVE (NEGATIVE) U Benzodiazepines Scrn NEGATIVE (NEGATIVE) Urine Cocaine Screen NEGATIVE (NEGATIVE) U Cannabinoids Screen NEGATIVE (NEGATIVE) Ethyl Alcohol mg/dL 07/27/18 07/27/18 Range/Units 20:22 20:22 WBC 6.3 (4.8-10.8) x10^3/uL RBC 3.92 L (4.70-6.10) 10^6/uL Hgb 14.0 (14.0-18.0) g/dL Hct 40.1 L (42.0-52.0) % MCV 102.3 H (80.0-94.0) fL MCH 35.7 H (27.0-31.0) pg MCHC 34.9 (32.0-36.0) g/dL RDW 14.9 (12.0-15.0) % Plt Count 106 L (130-450) 10^3/uL MPV 8.6 (7.4-11.4) fL Neut # (Auto) 4.4 (1.5-6.6) 10^3/uL Lymph # (Auto) 0.9 L (1.5-3.5) 10^3/uL [place] # (Auto) 0.9 (0.0-1.0) 10^3/uL Eos # (Auto) 0.0 (0.0-0.7) 10^3/uL Baso # (Auto) 0.1 (0.0-0.1) 10^3/uL Absolute Nucleated RBC 0.00 x10^3/uL Nucleated RBC % 0.1 /100WBC Sodium 134 L (135-145) mmol/L Potassium 3.5 (3.5-5.0) mmol/L Chloride 101 (101-111) mmol/L Carbon Dioxide 22 (21-32) mmol/L Anion Gap 11.0 (6-13) BUN 10 (6-20) mg/dL Creatinine 0.8 (0.6-1.2) mg/dL Estimated GFR (MDRD) 101 (>89) Glucose 129 H (70-100) mg/dL Calcium 9.4 (8.5-10.3) mg/dL Magnesium (1.7-2.8) mg/dL Total Bilirubin 1.1 H (0.2-1.0) mg/dL AST 60 H (10-42) IU/L ALT 44 (10-60) IU/L Alkaline Phosphatase 87 (42-121) IU/L Total Protein 7.7 (6.7-8.2) g/dL Albumin 4.5 (3.2-5.5) g/dL Globulin 3.2 (2.1-4.2) g/dL Albumin/Globulin Ratio 1.4 (1.0-2.2) Lipase 40 (22-51) U/L Urine Color Urine Clarity (CLEAR) Urine pH (5.0-7.5) PH Ur Specific [address] (1.002-1.030) Urine Protein (NEGATIVE) mg/dL Urine Glucose (UA) (NEGATIVE) mg/dL Urine Ketones (NEGATIVE) mg/dL Urine Occult Blood (NEGATIVE) Urine Nitrite (NEGATIVE) Urine Bilirubin (NEGATIVE) Urine Urobilinogen (NORMAL) E.U./dL Ur Leukocyte Esterase (NEGATIVE) Ur Microscopic Review Urine Culture Comments Salicylates < 6.0 mg/dL Urine Opiates Screen (NEGATIVE) Ur Oxycodone Screen (NEGATIVE) Urine Methadone Screen (NEGATIVE) Ur Propoxyphene Screen (NEGATIVE) Acetaminophen < 10 L (10-30) ug/mL Ur Barbiturates Screen (NEGATIVE) Ur Tricyclics Screen (NEGATIVE) Ur Phencyclidine Scrn (NEGATIVE) Ur Amphetamine Screen (NEGATIVE) U Methamphetamines Scrn (NEGATIVE) U Benzodiazepines Scrn (NEGATIVE) Urine Cocaine Screen (NEGATIVE) U Cannabinoids Screen (NEGATIVE) Ethyl Alcohol < 5.0 mg/dL ABX Reporting Has patient been on IV antibiotics over the past 48 hours?: No Assessment/Plan - Problem List (1) Alcohol withdrawal seizure Impression: As per the patient's brother who was here today for a visit believes that his brother has never had seizures from alcohol withdraw, although the patient has never attempted cessation on his own. The patient states that his alcoholic beverage of choice is primarily vodka. He lives with his parents, who heard a loud thud, and witnessed a seizure, which led to this admission. The patient states that he is very motivated to stop drinking. Plan: Seizure precautions, 1:1 care, and scheduled/PRN lorazepam. Qualifiers: Complication of substance-induced condition: with unspecified complication Qualified Code(s): F10.239 - Alcohol dependence with withdrawal, unspecified; R56.9 - Unspecified convulsions (2) Mental status change Impression: The patient can state the circumstances surrounding his current condition. He denies visual or auditory hallucinations. Today, he has a 1:1 sitter with continuous CIWA protocol. I have scheduled 1mg IV lorazepam Q3H with additional doses available in between those times. Plan: Continue to monitor. Qualifiers: Altered mental status type: transient alteration of awareness Qualified Code(s): R40.4 - Transient alteration of awareness (3) Tongue injury Impression: The patient has an injury as if he bit down equally onto his tongue, that has now caused swelling and discomfort. Nursing reports that he brushed his teeth this morning. I have added Peridex medicated rinse. Plan: Continue to monitor and treat his pain. Qualifiers: Encounter type: initial encounter Qualified Code(s): S09.93XA - Unspecified injury of face, initial encounter (4) Tobacco dependence Impression: The patient continues to smoke about 1 PPD as per his mother and brother. I have added a 21mcg patch to be given daily. Plan: Continue patch, and encourage cessation.
[2018-07-28] MEDS: diazePAM 5 MG TABLET PO PRN ×2 (08:18→22:13)
[2018-07-28] MEDS: POLYETHYLENE GLYCOL 3350 17 GM PACKET PO SCH (08:19)
[2018-07-28] MEDS ORDERED: MULTIVITAMIN 10 ML, THIAMINE INJ 100 MG, FOLIC ACID INJ 1 MG in SODIUM CHLORIDE 0.9% 1,... IV SCH (09:00)
[2018-07-28] MEDS: LORazepam 2 MG/ML VIAL IVP SCH ×5 (10:18→21:20)
[2018-07-28] MEDS: D5.45NS W/20 MEQ KCL 1,000 ML IV SCH ×2 (11:33→22:57)
[2018-07-28] MEDS: NICOTINE 21 MG PATCH TOP SCH (11:33)
[2018-07-28] MEDS: CHLORHEXIDINE GLUCONATE 15 ML UDC PO SCH ×2 (11:37→21:23)
[2018-07-28] MEDS: CARBOXYMETHYLCELLULOSE OPHTH DROPS EACHEYE SCH ×2 (11:38→18:55)
[2018-07-28] MEDS: ACETAMINOPHEN 325 MG TABLET PO PRN ×2 (14:12→22:13)
[2018-07-29] MEDS: CARBOXYMETHYLCELLULOSE OPHTH DROPS EACHEYE SCH ×4 (00:32→19:39)
[2018-07-29] MEDS: SODIUM CHLORIDE FLUSH 0.9% 10 ML SYRINGE IVP SCH ×5 (00:33→21:43)
[2018-07-29] MEDS: LORazepam 2 MG/ML VIAL IVP SCH ×4 (00:49→10:22)
[2018-07-29 06:41] LABS: BASOPHILS # (AUTO) 0.1 10^3/uL (0.0-0.1); EOSINOPHILS # (AUTO) 0.3 10^3/uL (0.0-0.7); HGB - HEMOGLOBIN 13.2 g/dL (14.0-18.0); LYMPHOCYTES # (AUTO) 1.5 10^3/uL (1.5-3.5); LYMPHOCYTES % (AUTO) 25.8 %; MEAN CORPUSCULAR HEMOGLOBIN 35.3 pg (27.0-31.0); MEAN CORPUSCULAR HGB CONC 34.1 g/dL (32.0-36.0); MEAN CORPUSCULAR VOLUME 103.7 fL (80.0-94.0); MEAN PLATELET VOLUME 9.1 fL (7.4-11.4); MONOCYTES # (AUTO) 0.8 10^3/uL (0.0-1.0); NEUTROPHILS # (AUTO) 3.2 10^3/uL (1.5-6.6); NEUTROPHILS % (AUTO) 54.2 %; PLT - PLATELET COUNT 85 10^3/uL (130-450); RED BLOOD COUNT 3.74 10^6/uL (4.70-6.10); RED CELL DISTRIBUTION WIDTH 14.5 % (12.0-15.0)
[2018-07-29 06:44] LABS: INR 0.9 (0.8-1.2); PT - PROTHROMBIN TIME 10.3 secs (9.9-12.6)
[2018-07-29 06:53] LABS: ALBUMIN/GLOBULIN RATIO 1.3 (1.0-2.2); BILIRUBIN,TOTAL 1.2 mg/dL (0.2-1.0); CALCIUM 8.7 mg/dL (8.5-10.3); CREATININE 0.6 mg/dL (0.6-1.2); MAGNESIUM 1.9 mg/dL (1.7-2.8); PHOSPHORUS 3.7 mg/dL (2.5-4.6)
[2018-07-29] MEDS: CHLORHEXIDINE GLUCONATE 15 ML UDC PO SCH ×2 (08:34→19:59)
[2018-07-29] MEDS: POLYETHYLENE GLYCOL 3350 17 GM PACKET PO SCH (08:34)
[2018-07-29] MEDS: NICOTINE 21 MG PATCH TOP SCH (08:34)
--- NOTE | 2018-07-29 10:44 | PROVIDER PROGRESS NOTE ---
Subjective - Prog Note Date Prog Note Date: 07/29/18 Prog Note Time: 10:43 - Subjective Pt reports feeling: Improved Subjective: Gabbie has no complaints and enjoyed a shower this morning. He denies chest pain, nausea, vomiting, rashes, headaches, hallucinations, falls, or a new cough. Current Medications - Current Medications Current Medications: Active Medications Acetaminophen (Tylenol) 650 mg PO Q4HR PRN PRN Reason: Pain or Fever > 38C (100.4F) Last Admin: 07/28/18 22:13 Dose: 650 mg Carboxymethylcellulose (Refresh 1% Ophth Drops) 1 drops EACHEYE Q6HR [facility] Last Admin: 07/29/18 05:44 Dose: 1 drops Chlorhexidine Gluconate (Peridex) 15 ml PO BID [facility] Last Admin: 07/29/18 08:34 Dose: 15 ml Diazepam (Valium) 5 mg PO Q1H PRN; Protocol PRN Reason: CIWA > 8 Last Admin: 07/28/18 22:13 Dose: 5 mg Multivitamins 10 ml/ Thiamine HCl 100 mg/ Folic Acid 1 mg/Sodium Chloride 1,011.2 mls @ 100 mls/hr IV DAILY [facility] Last Infusion: 07/28/18 18:56 Dose: Infused Potassium Chloride/Dextrose/Sod Cl (D5.45ns W/20 Meq Kcl) 1,000 mls @ 83.333 mls/hr IV .Q12H [facility] Last Admin: 07/28/18 22:57 Dose: 83.333 mls/hr Lorazepam (Ativan Inj (Vial)) 2 mg IVP Q30M PRN; Protocol PRN Reason: CIWA >8 Lorazepam (Ativan Inj (Vial)) 1 mg IVP Q3H [facility] Last Admin: 07/29/18 10:22 Dose: 1 mg Nicotine (Nicoderm) 1 patch TOP DAILY [facility] Last Admin: 07/29/18 08:34 Dose: 1 patch Ondansetron HCl (Zofran Inj) 4 mg IVP Q6HR PRN PRN Reason: Nausea / Vomiting Ondansetron HCl (Zofran Odt) 4 mg TL Q6HR PRN PRN Reason: Nausea / Vomiting Polyethylene Glycol (Miralax) 17 gm PO DAILY [facility] Last Admin: 07/29/18 08:34 Dose: 17 gm Prochlorperazine Edisylate (Compazine Inj) 10 mg IVP Q6HR PRN PRN Reason: Nausea / Vomiting Sodium Chloride (Normal Saline Flush 0.9%) 10 ml IVP PRN PRN PRN Reason: NEEDED PER PROVIDER ORDERS Last Admin: 07/28/18 13:09 Dose: 10 ml Sodium Chloride (Normal Saline Flush 0.9%) 10 ml IVP 0100,0900,1700 [facility] Last Admin: 07/29/18 00:33 Dose: Not Given Multivitamin [Theragran] 1 tab PO DAILY 07/28/18 Objective - Vital Signs/Intake & Output Reviewed Vital Signs: Yes Vital Signs: Vital Signs x48h Temp Pulse Resp BP Pulse Ox 07/29/18 07:12 37.3 C 77 22 131/81 H 96 07/29/18 04:20 36.7 C 71 16 114/61 97 Intake & Output: Intake & Output 07/26/18 07/27/18 07/28/18 07/29/18 23:59 23:59 23:59 23:59 Intake Total 1999 2829.863 450 Output Total 150 1075 Balance 1850 1754.863 450 - Objective General Appearance: positive: Alert, Moderate distress, Anxious Eyes Bilateral: positive: PERRL, No lid inflammation Eyes: OU Scleral icterus ENT: positive: Pharynx nml, No signs of dehydration Neck: positive: No JVD, Trachea midline Respiratory: positive: Chest non-tender, No respiratory distress, Other (diminshed.) Cardiovascular: positive: Regular rate & rhythm, No gallop, Tachycardia, Systolic murmur Peripheral Pulses: 1+ Radial (R), 1+ Radial (L) Abdomen: positive: Non-tender, Nml bowel sounds, Other (rounded, soft) Back: positive: Nml inspection Skin: positive: No rash, Warm, Dry, Other (full body erythema) Extremities: positive: Non-tender, Full ROM, Nml appearance Neurologic/Psychiatric: positive: Disoriented to place, Disoriented to time, Weakness, Sensory loss, Slurred/abnml speech (sluggish speech, cannot articulate with any meaningful ideas.), Depressed mood/affect Reflexes: Bicep (R): 3+, Bicep (L): 3+ - Lab Results Fish Bones: 07/29/18 06:08 07/29/18 06:08 Other Labs: Lab Results x24hrs 07/29/18 07/29/18 07/29/18 Range/Units 06:08 06:08 06:08 WBC 6.0 (4.8-10.8) x10^3/uL RBC 3.74 L (4.70-6.10) 10^6/uL Hgb 13.2 L (14.0-18.0) g/dL Hct 38.7 L (42.0-52.0) % MCV 103.7 H (80.0-94.0) fL MCH 35.3 H (27.0-31.0) pg MCHC 34.1 (32.0-36.0) g/dL RDW 14.5 (12.0-15.0) % Plt Count 85 L (130-450) 10^3/uL MPV 9.1 (7.4-11.4) fL Neut # (Auto) 3.2 (1.5-6.6) 10^3/uL Lymph # (Auto) 1.5 (1.5-3.5) 10^3/uL Avery # (Auto) 0.8 (0.0-1.0) 10^3/uL Eos # (Auto) 0.3 (0.0-0.7) 10^3/uL Baso # (Auto) 0.1 (0.0-0.1) 10^3/uL Absolute Nucleated RBC 0.00 x10^3/uL Nucleated RBC % 0.1 /100WBC PT 10.3 (9.9-12.6) secs INR 0.9 (0.8-1.2) APTT 27.3 (24.9-33.3) secs Sodium 136 (135-145) mmol/L Potassium 3.8 (3.5-5.0) mmol/L Chloride 103 (101-111) mmol/L Carbon Dioxide 23 (21-32) mmol/L Anion Gap 10.0 (6-13) BUN 8 (6-20) mg/dL Creatinine 0.6 (0.6-1.2) mg/dL Estimated GFR (MDRD) 141 (>89) Glucose 101 H (70-100) mg/dL Calcium 8.7 (8.5-10.3) mg/dL Phosphorus 3.7 (2.5-4.6) mg/dL Magnesium 1.9 (1.7-2.8) mg/dL Total Bilirubin 1.2 H (0.2-1.0) mg/dL AST 74 H (10-42) IU/L ALT 42 (10-60) IU/L Alkaline Phosphatase 77 (42-121) IU/L Total Protein 7.0 (6.7-8.2) g/dL Albumin 4.0 (3.2-5.5) g/dL Globulin 3.0 (2.1-4.2) g/dL Albumin/Globulin Ratio 1.3 (1.0-2.2) ABX Reporting Has patient been on IV antibiotics over the past 48 hours?: No Assessment/Plan - Problem List (1) Alcohol withdrawal seizure Impression: The patient has reportedly not had seizures from alcohol withdraw prior to this admission, although the patient has never attempted cessation on his own. The patient stated that his alcoholic beverage of choice is primarily vodka. He lives with his parents, who heard a loud thud, and witnessed a seizure, which led to this admission. The patient talked to his family about being motivated to stop drinking. The patient is no longer on 1:1 supervision, but remains very impulsive with moderate ataxia. He continues on the CIWA protocol, which he has required extra doses of Valium over and above his scheduled oral Lorazepam due to increased agitation. He remains easily stimulated, and has not had any documented seizures. Today he has generally been tachycardic, without significant electrolyte abnormalities. Plan: Seizure precautions, telemetry, and scheduled/PRN lorazepam. Qualifiers: Complication of substance-induced condition: with unspecified complication Qualified Code(s): F10.239 - Alcohol dependence with withdrawal, unspecified; R56.9 - Unspecified convulsions (2) Mental status change Impression: The patient cannot state the circumstances surrounding his current condition and becomes easily irritated with no evidence of comprehension. He denies visual or auditory hallucinations. He has been continued on lorazepam Q4H, that has been changed to oral, with additional doses available in between those times. He continues to be impulsive and continues to withdrawal. Plan: Continue to monitor. Qualifiers: Altered mental status type: transient alteration of awareness Qualified Code(s): R40.4 - Transient alteration of awareness (3) Tongue injury Impression: The patient has an injury as if he bit down equally onto his tongue, that has now caused swelling and discomfort. Nursing reports that he has been brushing his teeth. He continues on Peridex medicated rinse and upon my exam is improved from 24 hours earlier. Plan: Continue to monitor and treat his pain. Qualifiers: Encounter type: initial encounter Qualified Code(s): S09.93XA - Unspecified injury of face, initial encounter (4) Tobacco dependence Impression: The patient continues to smoke about 1 PPD as per his mother and brother. He continues on a 21mcg patch to be given daily. Plan: Continue patch, and encourage cessation. (5) Tachycardia Impression: The patient's blood pressure remains high and has been tachycardic with heart rates 808-100's. He denies chest pain on exam. Plan: Continue telemetry, [facility] protocol.
[2018-07-29] MEDS: D5.45NS W/20 MEQ KCL 1,000 ML IV SCH (11:23)
[2018-07-29] MEDS ORDERED: FOLIC ACID 1 MG TABLET PO SCH (12:00)
[2018-07-29] MEDS ORDERED: MULTIVITAMIN TABLET PO SCH (12:00)
[2018-07-29] MEDS ORDERED: PANTOPRAZOLE 40 MG TABLET PO SCH (12:00)
[2018-07-29] MEDS ORDERED: THIAMINE 100 MG TABLET PO SCH (12:00)
[2018-07-29] MEDS: LORazepam 1 MG TABLET PO SCH ×4 (12:13→22:52)
[2018-07-29] MEDS: diazePAM 5 MG TABLET PO PRN ×2 (17:20→20:20)
[2018-07-29] MEDS: LORazepam 2 MG/ML VIAL IVP PRN ×4 (18:27→21:42)
[2018-07-29] MEDS ORDERED: HALOPERIDOL 5 MG/ML VIAL ONE ×2 (20:50→21:26)
[2018-07-29] MEDS ORDERED: HALOPERIDOL 5 MG/ML VIAL IM ONE (20:51)
[2018-07-29] MEDS ORDERED: HALOPERIDOL 5 MG/ML VIAL IVP PRN (21:39)
[2018-07-29] MEDS ORDERED: HALOPERIDOL 5 MG/ML VIAL IM SCH (21:44)
[2018-07-29] MEDS: DEXTROSE 5% IV SCH (22:51)
[2018-07-29] MEDS: LORAZEPAM IV SCH (22:51)
[2018-07-30] MEDS ORDERED: MIDAZOLAM 2 MG/2 ML VIAL ONE (00:06)
[2018-07-30] MEDS ORDERED: SUCCINYLCHOLINE 200 MG/10 ML VIAL ONE (00:07)
[2018-07-30] MEDS ORDERED: PROPOFOL 1000 MG/100 ML 100 ML IV ONE (00:10)
[2018-07-30] MEDS ORDERED: SODIUM CHLORIDE FLUSH 0.9% 10 ML SYRINGE ONE (00:11)
[2018-07-30] MEDS: PROPOFOL 1000 MG/100 ML 100 ML IV SCH ×5 (00:20→20:55)
[2018-07-30] MEDS ORDERED: SODIUM CHLORIDE 0.9% 1,000 ML IV ONE (00:26)
[2018-07-30] MEDS ORDERED: VECURONIUM 10 MG VIAL ONE (00:33)
[2018-07-30] MEDS ORDERED: ROCURONIUM 50 MG/5 ML VIAL IVP ONE (00:34)
[2018-07-30] MEDS ORDERED: PROPOFOL 200 MG/20 ML VIAL IVP ONE (00:38)
[2018-07-30] MEDS ORDERED: SODIUM CHLORIDE 0.9% 1,000 ML IV SCH (01:00)
--- NOTE | 2018-07-30 01:10 | XRAY Report ---
Reason: s/p intubation. Procedure Date: 07/30/2018 Accession Number: [id number] / [id number] Procedure: XR - Chest 1 View X-Ray CPT Code: 46893 FULL RESULT: EXAM: CHEST RADIOGRAPHY EXAM DATE: 07/30/2018 12:36 AM. CLINICAL HISTORY: S/p intubation. COMPARISON: CHEST 2 VIEW 02/13/2018 7:41 AM. TECHNIQUE: 1 view. FINDINGS: Support devices: Endotracheal tube tip about 5 cm above the jay. Enteric tube tip in the stomach. Lungs/Pleura: Grossly clear lungs. No gross pneumothorax or large effusion. Mediastinum: Stable heart size. No mediastinal shift. Other: None. IMPRESSION: 1. Support devices as above. 2. Lungs clear. RAD[facility]
--- NOTE | 2018-07-30 01:12 | MISCELLANEOUS PROVIDER NOTE ---
Miscellaneous Provider Note - - Note: I was asked to intubate this patient by Dr. Monaco. Patient is being treated for alcohol withdrawal and has exhibited worsening mental status and increasing agitation despite increasing IV lorazepam infusion dosing. On my evaluation, patient is diaphoretic and confused. His words are intelligible but does not answer appropriately and at times is calling out to someone to people that are not there. He knows his name but is disoriented to time, place. He is tachycardic, sinus tachycardia on classroom monitor 110s-130s. He is hypertensive with 110s DBP. Pulse ox is 96% room air and in no respiratory distress. Dr. Monaco plans to initiate a propofol drip and thus requests intub ation for airway protection. Patient given 30mg IV propofol followed by 100mg IV succinylcholine. Glidescope used with 7.5mm ETT and MAC3 glidescope handle. First attempt at intubation was unsuccessful: color capnography does not change color (remains purple), and loud gurgling with BVM breaths. I removed the tube and respiratory therapist administered BVM breaths which rapidly normalized pulse ox (dropped as low as upper 40s, but this was only for 20-30 seconds before quickly increasing to 100%). He did not become cyanotic and no change in ST/rate on monitor. I then was able to intubate on second attempt with 7.5mm ETT and MAC3 handle, Glidescope. Color capnography confirms placement, breath sounds heard bilaterally and equally. Pulse ox 98-100%. Placement of ETT confirmed on CXR.
[2018-07-30] MEDS: LORazepam 100MG/100ML 100 ML IV SCH ×2 (01:19→07:42)
[2018-07-30] MEDS: SODIUM CHLORIDE FLUSH 0.9% 10 ML SYRINGE IVP SCH ×6 (01:23→16:39)
[2018-07-30] MEDS: LORazepam 1 MG TABLET PO SCH (01:24)
[2018-07-30 01:25] LABS: BASOPHILS % (AUTO) 0.6 %; EOSINOPHILS # (AUTO) 0.1 10^3/uL (0.0-0.7); EOSINOPHILS % (AUTO) 1.9 %; HGB - HEMOGLOBIN 13.2 g/dL (14.0-18.0); LYMPHOCYTES # (AUTO) 1.1 10^3/uL (1.5-3.5); LYMPHOCYTES % (AUTO) 14.4 %; MEAN CORPUSCULAR HEMOGLOBIN 35.4 pg (27.0-31.0); MEAN CORPUSCULAR HGB CONC 34.4 g/dL (32.0-36.0); MEAN CORPUSCULAR VOLUME 103.1 fL (80.0-94.0); MEAN PLATELET VOLUME 9.1 fL (7.4-11.4); MONOCYTES % (AUTO) 12.7 %; NEUTROPHILS # (AUTO) 5.3 10^3/uL (1.5-6.6); NEUTROPHILS % (AUTO) 70.4 %; PLT - PLATELET COUNT 94 10^3/uL (130-450); RED BLOOD COUNT 3.72 10^6/uL (4.70-6.10); RED CELL DISTRIBUTION WIDTH 14.1 % (12.0-15.0); WHITE BLOOD COUNT 7.6 x10^3/uL (4.8-10.8)
--- NOTE | 2018-07-30 01:28 | PROVIDER PROGRESS NOTE ---
Business Services Director Note - Business Services Director Note Business Services Director Note: Patient began having worsening agitation the evening of 07/29/18. From 17:20 to 21:42, he received a total of 18mg (12mg po and 6mg IV) of ativan with no change in his agitation. He received a total of 5mg of haldol IM as well. He was then transferred to the ICU where he continued to be very agitated, attempting to pull at lines and at the teran. He thinks he is in a house and he wants to go home. He keeps try to get out of bed. This warranted a 4 point restraint. He was placed on ativan drip which was titrated to 20 mg/hr within 90 mins. He was still scoring 38 on his SEWS. He was diaphoretic, his heart rate was as high as 160's and hypertensive. Highest SBP was in the 200's. At this point he scored 42 on his SEWS. I contacted Dr Villarreal in the ED who assisted with intubating him. He required a 50mg bolus of propofol and 10mg IV of rocuronium for intubation. He was then started on a propofol drip at 25 mcg/kg/min. His agitation stopped with appropriate sedation. His pulse is in the 110's SBP currently 130's-140's CBC, BMP, ABG, EKG are pending s/p intubation
[2018-07-30 01:32] LABS: CALCIUM 9.3 mg/dL (8.5-10.3); CREATININE 0.8 mg/dL (0.6-1.2); MAGNESIUM 1.6 mg/dL (1.7-2.8)
[2018-07-30] MEDS: CARBOXYMETHYLCELLULOSE OPHTH DROPS EACHEYE SCH ×4 (01:44→18:19)
[2018-07-30] MEDS ORDERED: MAGNESIUM SULFATE 2 GRAM 2 GM/50 ML BAG IV ONE (02:14)
[2018-07-30 02:20] LABS: ABG BASE EXCESS -2.6 mmol/L (-2.0-3.0); ABG HCO3 22.1 mmol/L (22.0-26.0); ABG OXYGEN SATURATION 100 % (94-98); ABG PCO2 38 mmHg (34-45); ABG PH 7.38 (7.35-7.45); ABG TCO2 23.3 MMOL/L (21.0-29.0); ALLEN TEST POSITIVE
[2018-07-30 02:23] LABS: ABG PO2 269 mmHg (80-100)
[2018-07-30] MEDS: POTASSIUM CHLOR 10 MEQ/100 ML 10 MEQ/100 ML BAG IV SCH ×4 (04:05→07:15)
[2018-07-30 05:55] LABS: BASOPHILS % (AUTO) 0.5 %; EOSINOPHILS # (AUTO) 0.2 10^3/uL (0.0-0.7); HGB - HEMOGLOBIN 12.9 g/dL (14.0-18.0); LYMPHOCYTES # (AUTO) 1.4 10^3/uL (1.5-3.5); LYMPHOCYTES % (AUTO) 17.7 %; MEAN CORPUSCULAR HGB CONC 34.7 g/dL (32.0-36.0); MEAN CORPUSCULAR VOLUME 103.7 fL (80.0-94.0); MEAN PLATELET VOLUME 9.4 fL (7.4-11.4); MONOCYTES # (AUTO) 1.1 10^3/uL (0.0-1.0); MONOCYTES % (AUTO) 14.7 %; NEUTROPHILS % (AUTO) 65.1 %; PLT - PLATELET COUNT 99 10^3/uL (130-450); RED BLOOD COUNT 3.58 10^6/uL (4.70-6.10); RED CELL DISTRIBUTION WIDTH 14.4 % (12.0-15.0); WHITE BLOOD COUNT 7.7 x10^3/uL (4.8-10.8)
[2018-07-30 06:05] LABS: ALBUMIN/GLOBULIN RATIO 1.3 (1.0-2.2); CALCIUM 9.1 mg/dL (8.5-10.3); CREATININE 0.7 mg/dL (0.6-1.2); TOTAL PROTEIN 7.2 g/dL (6.7-8.2)
[2018-07-30 06:09] LABS: CHOL/HDL RATIO 2.2 (<5.0); CHOLESTEROL 181 mg/dL; HDL CHOLESTEROL 83 mg/dL; LDL CHOLESTEROL,CALCULATED 83 mg/dL; VLDL CHOLESTEROL 15 mg/dL
[2018-07-30 06:12] LABS: CALCIUM 9.1 mg/dL (8.5-10.3)
[2018-07-30 06:17] LABS: MAGNESIUM 2.4 mg/dL (1.7-2.8); PHOSPHORUS 3.9 mg/dL (2.5-4.6)
[2018-07-30] MEDS: PANTOPRAZOLE 40 MG VIAL IVP SCH (06:43)
[2018-07-30] MEDS: LORAZEPAM IV SCH (07:46)
[2018-07-30] MEDS: DEXTROSE 5% IV SCH (07:46)
[2018-07-30] MEDS: D5.45NS W/20 MEQ KCL 1,000 ML IV SCH ×2 (09:03→23:58)
[2018-07-30] MEDS: POLYETHYLENE GLYCOL 3350 17 GM PACKET PO SCH (09:13)
[2018-07-30] MEDS: CHLORHEXIDINE GLUCONATE 15 ML UDC PO SCH (09:22)
[2018-07-30] MEDS: NICOTINE 21 MG PATCH TOP SCH (09:22)
--- NOTE | 2018-07-30 12:20 | PROVIDER PROGRESS NOTE ---
Assessment/Plan - Problem List (1) Alcohol withdrawal Qualifiers: Complication of substance-induced condition: with delirium Qualified Code(s): F10.231 - Alcohol dependence with withdrawal delirium Assessment/Plan: Pt needed to get escalating doses of benzo's yesterday, but still developed full blown withdrawal with hallucinations and aggressive behavior, needing sedation, then paralysis and intubation. Pt now on vent, on iv Ativan drip at 5 and iv Propofol drip at 50. Continue these drips and vent for at least 24 hours to get through withdrawal, possibly 48 hours. Reposition and oral care per protocol. Po meds will be changed to parenteral doses. Follow CMP and CBC daily. Follow CXR daily while intubated. (2) Alcohol abuse Assessment/Plan: Low plts and abnormal electrolytes and Mg are likely related to his excessive alcohol use. Will replace, start a banana bag iv daily and monitor those labs daily. - Current Meds Current Meds: Current Medications Generic Name Dose Route Start Last Admin Trade Name Freq PRN Reason Stop Dose Admin Carboxymethylcellulose 1 drops 07/28/18 12:00 07/30/18 05:09 Refresh 1% Ophth Drops EACHEYE 1 drops Q6HR [facility] Administration Chlorhexidine Gluconate 15 ml 07/28/18 11:00 07/30/18 09:22 Peridex PO 15 ml BID [facility] Administration Lorazepam 100 mls @ 5 mls/hr 07/29/18 23:00 07/30/18 11:11 Ativan IV 5 mg/hr .Q20H [facility] 5 mls/hr Titration Protocol 5 MG/HR Propofol 100 mls @ 4.44 mls/hr 07/30/18 01:00 07/30/18 11:12 Diprivan IV 50 mcg/kg/min .[id number] [facility] 22.2 mls/hr Titration Protocol 10 MCG/KG/MIN Potassium Chloride/Dextrose/Sod Cl 1,000 mls @ 125 mls/hr 07/30/18 08:00 07/30/18 10:00 D5.45ns W/20 Meq Kcl IV 125 mls/hr .Q8H [facility] Infusion Lorazepam 2 mg 07/27/18 22:47 07/29/18 21:42 Ativan Inj (Vial) IVP 2 mg Q30M PRN Administration CIWA >8 Protocol Nicotine 1 patch 07/28/18 11:00 07/30/18 09:22 Nicoderm TOP 1 patch DAILY [facility] Administration Pantoprazole Sodium 40 mg 07/30/18 07:00 07/30/18 06:43 Protonix IVP 40 mg QDAC [facility] Administration Polyethylene Glycol 17 gm 07/28/18 09:00 07/30/18 09:13 Miralax PO Not Given DAILY [facility] Sodium Chloride 10 ml 07/27/18 22:45 07/28/18 13:09 Normal Saline Flush 0.9% IVP 10 ml PRN PRN Administration NEEDED PER PROVIDER ORDERS Sodium Chloride 10 ml 07/28/18 01:00 07/30/18 09:25 Normal Saline Flush 0.9% IVP 10 ml 0100,0900,1700 [facility] Administration Sodium Chloride 10 ml 07/30/18 01:00 07/30/18 09:25 Normal Saline Flush 0.9% IVP 10 ml 0100,0900,1700 [facility] Administration - Lab Result Fish Bone Diagrams: 07/30/18 05:02 07/30/18 05:02 Subjective - Subjective Nursing Reports: Other (Pt sedated, paralyzed and intubated, after overnight alcohol withdrawal.) Objective Vital Signs: Vital Signs - 24 hr 07/29/18 07/29/18 07/29/18 12:35 16:46 23:00 Temperature 37.5 C 37 C Heart Rate Heart Rate [ 84 100 112 H Brachial] Respiratory 20 20 24 Rate Blood Pressure 143/81 H 133/98 H [Left Brachial artery] Blood Pressure 133/93 H [Right Brachial artery] O2 Saturation 98 97 93 07/29/18 07/30/18 07/30/18 23:32 00:00 01:00 Temperature 37.0 C Heart Rate Heart Rate [ 117 H 131 H 104 H Brachial] Respiratory 20 25 H 20 Rate Blood Pressure [Left Brachial artery] Blood Pressure 201/104 H 192/132 H 139/102 H [Right Brachial artery] O2 Saturation 96 97 100 07/30/18 07/30/18 07/30/18 01:20 02:00 02:22 Temperature Heart Rate 121 H 107 H Heart Rate [ 102 H Brachial] Respiratory 20 Rate Blood Pressure [Left Brachial artery] Blood Pressure 161/114 H [Right Brachial artery] O2 Saturation 99 07/30/18 07/30/18 07/30/18 03:00 04:00 05:00 Temperature 37.0 C Heart Rate Heart Rate [ 102 H 92 86 Brachial] Respiratory 20 20 20 Rate Blood Pressure [Left Brachial artery] Blood Pressure 123/80 112/78 119/87 H [Right Brachial artery] O2 Saturation 98 98 99 07/30/18 07/30/18 07/30/18 05:05 06:00 07:00 Temperature Heart Rate 81 Heart Rate [ 83 81 Brachial] Respiratory 20 20 Rate Blood Pressure [Left Brachial artery] Blood Pressure 110/76 104/77 [Right Brachial artery] O2 Saturation 98 99 07/30/18 07/30/18 07/30/18 07:13 08:00 09:00 Temperature 36.7 C Heart Rate 84 Heart Rate [ 80 79 Brachial] Respiratory 20 20 Rate Blood Pressure [Left Brachial artery] Blood Pressure 104/74 115/84 H [Right Brachial artery] O2 Saturation 99 100 07/30/18 07/30/18 07/30/18 09:13 10:00 11:00 Temperature Heart Rate 80 Heart Rate [ 74 76 Brachial] Respiratory 20 20 Rate Blood Pressure [Left Brachial artery] Blood Pressure 122/83 H 105/67 [Right Brachial artery] O2 Saturation 98 98 07/30/18 07/30/18 11:24 12:00 Temperature Heart Rate 80 Heart Rate [ 79 Brachial] Respiratory 20 Rate Blood Pressure [Left Brachial artery] Blood Pressure 105/67 [Right Brachial artery] O2 Saturation 97 Oxygen O2 Source [With Activity] Room air O2 Source [Without Activity] Room air O2 Source Mechanical ventilator I&O (Last 24 Hrs): Intake and Output Totals x24h 07/28/18 07/29/18 07/30/18 23:59 23:59 23:59 Intake Total 2829.863 2259.733 835.353 Output Total 1075 300 800 Balance 6556.107 4489.733 35.353 General: Other (Sedated, paralyzed, intubated) HEENT: Other (Eyes closed) Neck: Supple Neuro: Other (Sedated and paralyzed) Cardiovascular: No murmurs Respiratory: No respiratory distress, Breath sounds nml Abdomen: Soft Extremities: No edema - Results Results: Laboratory Results WBC 7.7 x10^3/uL (4.8-10.8) 07/30/18 05:02 RBC 3.58 10^6/uL (4.70-6.10) L 07/30/18 05:02 Hgb 12.9 g/dL (14.0-18.0) L 07/30/18 05:02 Hct 37.1 % (42.0-52.0) L 07/30/18 05:02 MCV 103.7 fL (80.0-94.0) H 07/30/18 05:02 MCH 36.0 pg (27.0-31.0) H 07/30/18 05:02 MCHC 34.7 g/dL (32.0-36.0) 07/30/18 05:02 RDW 14.4 % (12.0-15.0) 07/30/18 05:02 Plt Count 99 10^3/uL (130-450) L 07/30/18 05:02 MPV 9.4 fL (7.4-11.4) 07/30/18 05:02 Neut # (Auto) 5.0 10^3/uL (1.5-6.6) 07/30/18 05:02 Lymph # (Auto) 1.4 10^3/uL (1.5-3.5) L 07/30/18 05:02 Keith # (Auto) 1.1 10^3/uL (0.0-1.0) H 07/30/18 05:02 Eos # (Auto) 0.2 10^3/uL (0.0-0.7) 07/30/18 05:02 Baso # (Auto) 0.0 10^3/uL (0.0-0.1) 07/30/18 05:02 Absolute Nucleated RBC 0.00 x10^3/uL 07/30/18 05:02 Nucleated RBC % 0.0 /100WBC 07/30/18 05:02 PT 10.3 secs (9.9-12.6) 07/29/18 06:08 INR 0.9 (0.8-1.2) 07/29/18 06:08 APTT 27.3 secs (24.9-33.3) 07/29/18 06:08 Bld Gas Analysis Time 0220 07/30/18 02:10 Sample Site RIGHT RADIAL 07/30/18 02:10 ABG pH 7.38 (7.35-7.45) 07/30/18 02:10 ABG pCO2 38 mmHg (34-45) 07/30/18 02:10 ABG pO2 269 mmHg (80-100) H* 07/30/18 02:10 ABG HCO3 22.1 mmol/L (22.0-26.0) 07/30/18 02:10 ABG Total CO2 23.3 MMOL/L (21.0-29.0) 07/30/18 02:10 ABG O2 Saturation 100 % (94-98) H 07/30/18 02:10 ABG Oximetry Spot Check 99 % 07/30/18 02:10 ABG Base Excess -2.6 mmol/L (-2.0-3.0) L 07/30/18 02:10 Janes Test POSITIVE 07/30/18 02:10 Respiration Rate 20 b/min 07/30/18 02:10 O2 Delivery Device VENTILATOR 07/30/18 02:10 Vent Mode SIMV 07/30/18 02:10 FiO2 60.00 07/30/18 02:10 Tidal Volume 500 mL 07/30/18 02:10 PEEP 5 cmH2O 07/30/18 02:10 Pressure Support Vent 12 cmH2O 07/30/18 02:10 Sodium 136 mmol/L (135-145) 07/30/18 05:02 Potassium 3.5 mmol/L (3.5-5.0) 07/30/18 05:02 Chloride 104 mmol/L (101-111) 07/30/18 05:02 Carbon Dioxide 22 mmol/L (21-32) 07/30/18 05:02 Anion Gap 10.0 (6-13) 07/30/18 05:02 BUN 9 mg/dL (6-20) 07/30/18 05:02 Creatinine 0.7 mg/dL (0.6-1.2) 07/30/18 05:02 Estimated GFR (MDRD) 118 (>89) 07/30/18 05:02 Glucose 103 mg/dL (70-100) H 07/30/18 05:02 Calcium 9.1 mg/dL (8.5-10.3) 07/30/18 05:02 Ionized Calcium NO 07/30/18 05:02 Phosphorus 3.9 mg/dL (2.5-4.6) 07/30/18 05:02 Magnesium 2.4 mg/dL (1.7-2.8) 07/30/18 05:02 Total Bilirubin 1.0 mg/dL (0.2-1.0) 07/30/18 05:02 AST 63 IU/L (10-42) H 07/30/18 05:02 ALT 37 IU/L (10-60) 07/30/18 05:02 Alkaline Phosphatase 74 IU/L (42-121) 07/30/18 05:02 Total Protein 7.2 g/dL (6.7-8.2) 07/30/18 05:02 Albumin 4.0 g/dL (3.2-5.5) 07/30/18 05:02 Globulin 3.2 g/dL (2.1-4.2) 07/30/18 05:02 Albumin/Globulin Ratio 1.3 (1.0-2.2) 07/30/18 05:02 Triglycerides 75 mg/dL (-149) 07/30/18 05:02 Cholesterol 181 mg/dL (-199) 07/30/18 05:02 LDL Cholesterol, Calc 83 mg/dL (-129) 07/30/18 05:02 VLDL Cholesterol 15 mg/dL 07/30/18 05:02 HDL Cholesterol 83 mg/dL (60-) 07/30/18 05:02 LDL/HDL Ratio 1.0 (<3.6) 07/30/18 05:02 Cholesterol/HDL Ratio 2.2 (<5.0) 07/30/18 05:02 Lipase 28 U/L (22-51) 07/30/18 05:02 Urine Color YELLOW 07/27/18 23:20 Urine Clarity CLEAR (CLEAR) 07/27/18 23:20 Urine pH 7.5 PH (5.0-7.5) 07/27/18 23:20 Ur Specific [place] 1.020 (1.002-1.030) 07/27/18 23:20 Urine Protein TRACE mg/dL (NEGATIVE) 07/27/18 23:20 Urine Glucose (UA) NEGATIVE mg/dL (NEGATIVE) 07/27/18 23:20 Urine Ketones TRACE mg/dL (NEGATIVE) 07/27/18 23:20 Urine Occult Blood TRACE-LYSE (NEGATIVE) 07/27/18 23:20 Urine Nitrite NEGATIVE (NEGATIVE) 07/27/18 23:20 Urine Bilirubin NEGATIVE (NEGATIVE) 07/27/18 23:20 Urine Urobilinogen 0.2 (NORMAL) E.U./dL (NORMAL) 07/27/18 23:20 Ur Leukocyte Esterase NEGATIVE (NEGATIVE) 07/27/18 23:20 Ur Microscopic Review NOT INDICATED 07/27/18 23:20 Urine Culture Comments NOT INDICATED 07/27/18 23:20 Salicylates < 6.0 mg/dL 07/27/18 20:22 Urine Opiates Screen NEGATIVE (NEGATIVE) 07/27/18 23:20 Ur Oxycodone Screen NEGATIVE (NEGATIVE) 07/27/18 23:20 Urine Methadone Screen NEGATIVE (NEGATIVE) 07/27/18 23:20 Ur Propoxyphene Screen NEGATIVE (NEGATIVE) 07/27/18 23:20 Acetaminophen < 10 ug/mL (10-30) L 07/27/18 20:22 Ur Barbiturates Screen NEGATIVE (NEGATIVE) 07/27/18 23:20 Ur Tricyclics Screen NEGATIVE (NEGATIVE) 07/27/18 23:20 Ur Phencyclidine Scrn NEGATIVE (NEGATIVE) 07/27/18 23:20 Ur Amphetamine Screen NEGATIVE (NEGATIVE) 07/27/18 23:20 U Methamphetamines Scrn NEGATIVE (NEGATIVE) 07/27/18 23:20 U Benzodiazepines Scrn NEGATIVE (NEGATIVE) 07/27/18 23:20 Urine Cocaine Screen NEGATIVE (NEGATIVE) 07/27/18 23:20 U Cannabinoids Screen NEGATIVE (NEGATIVE) 07/27/18 23:20 Ethyl Alcohol < 5.0 mg/dL 07/27/18 20:22
[2018-07-30] MEDS: MULTIVITAMIN 10 ML, FOLIC ACID INJ 1 MG, THIAMINE INJ 100 MG, MAGNESIUM SULFATE 2 GM in... IV SCH ×5 (13:15)
[2018-07-31] MEDS: CARBOXYMETHYLCELLULOSE OPHTH DROPS EACHEYE SCH ×5 (01:44→23:25)
[2018-07-31] MEDS: PROPOFOL 1000 MG/100 ML 100 ML IV SCH ×4 (02:04→23:19)
[2018-07-31] MEDS: LORazepam 100MG/100ML 100 ML IV SCH (03:04)
[2018-07-31] MEDS: SODIUM CHLORIDE FLUSH 0.9% 10 ML SYRINGE IVP SCH ×3 (05:34→18:31)
[2018-07-31 05:39] LABS: BASOPHILS % (AUTO) 0.5 %; EOSINOPHILS # (AUTO) 0.2 10^3/uL (0.0-0.7); EOSINOPHILS % (AUTO) 2.2 %; HGB - HEMOGLOBIN 12.3 g/dL (14.0-18.0); LYMPHOCYTES # (AUTO) 1.1 10^3/uL (1.5-3.5); LYMPHOCYTES % (AUTO) 12.4 %; MEAN CORPUSCULAR HEMOGLOBIN 36.6 pg (27.0-31.0); MEAN CORPUSCULAR HGB CONC 35.1 g/dL (32.0-36.0); MEAN CORPUSCULAR VOLUME 104.3 fL (80.0-94.0); MEAN PLATELET VOLUME 9.6 fL (7.4-11.4); MONOCYTES # (AUTO) 1.4 10^3/uL (0.0-1.0); MONOCYTES % (AUTO) 16.3 %; NEUTROPHILS # (AUTO) 5.9 10^3/uL (1.5-6.6); NEUTROPHILS % (AUTO) 68.6 %; PLT - PLATELET COUNT 112 10^3/uL (130-450); RED BLOOD COUNT 3.36 10^6/uL (4.70-6.10); RED CELL DISTRIBUTION WIDTH 14.2 % (12.0-15.0); WHITE BLOOD COUNT 8.6 x10^3/uL (4.8-10.8)
[2018-07-31 05:56] LABS: ALBUMIN 3.3 g/dL (3.2-5.5); BILIRUBIN,TOTAL 0.8 mg/dL (0.2-1.0); CALCIUM 8.4 mg/dL (8.5-10.3); CREATININE 0.6 mg/dL (0.6-1.2); MAGNESIUM 1.9 mg/dL (1.7-2.8); PHOSPHORUS 2.6 mg/dL (2.5-4.6); TOTAL PROTEIN 6.6 g/dL (6.7-8.2)
[2018-07-31 06:01] LABS: CALCIUM 8.3 mg/dL (8.5-10.3)
[2018-07-31 06:03] LABS: VBG PH 7.395 (7.31-7.41)
[2018-07-31] MEDS: SODIUM CHLORIDE FLUSH 0.9% 10 ML SYRINGE IVP PRN (06:29)
[2018-07-31] MEDS: PANTOPRAZOLE 40 MG VIAL IVP SCH (06:29)
--- NOTE | 2018-07-31 06:42 | XRAY Report ---
Reason: Alcohol withdrawal, sedated on vent Procedure Date: 07/31/2018 Accession Number: [id number] / [id number] Procedure: XR - Chest 1 View X-Ray CPT Code: 61002 FULL RESULT: EXAM: CHEST RADIOGRAPHY EXAM DATE: 07/31/2018 05:47 AM. CLINICAL HISTORY: Alcohol withdrawal, sedated on ventilator. COMPARISON: CHEST 1 VIEW 07/30/2018 12:36 AM. TECHNIQUE: 1 view. FINDINGS: Lungs/Pleura: No alveolar consolidation or pleural effusion seen. No pneumothorax. Mediastinum: Within exam limitations, the cardiomediastinal contour is normal. Other: Endotracheal tube is in place with the tip approximately 5.4 cm above the jay. Enteric tube extends well beyond the gastroesophageal junction. IMPRESSION: 1. Tubes and lines appear stable. 2. No acute abnormality seen. RADIA
[2018-07-31] MEDS ORDERED: CALCIUM GLUCONATE 1,000 MG in SODIUM CHLORIDE 0.9% 50 ML IV SCH (08:30)
[2018-07-31] MEDS ORDERED: SODIUM CHLORIDE 0.9% 1,000 ML IV ONE (08:38)
[2018-07-31] MEDS ORDERED: ACETAMINOPHEN 650 MG SUPP PR ONE (08:44)
[2018-07-31] MEDS: ACETAMINOPHEN 650 MG SUPP PR PRN ×2 (08:48→18:27)
[2018-07-31] MEDS: MULTIVITAMIN 10 ML, FOLIC ACID INJ 1 MG, THIAMINE INJ 100 MG, MAGNESIUM SULFATE 2 GM in... IV SCH ×5 (10:09)
[2018-07-31] MEDS: NICOTINE 21 MG PATCH TOP SCH (10:14)
[2018-07-31] MEDS ORDERED: SODIUM CHLORIDE INHALATION 3 ML NEB ONE (11:18)
--- NOTE | 2018-07-31 14:30 | PROVIDER PROGRESS NOTE ---
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 In spite of that he did not respond. Given Haldol. He ended up in the ICU with a four-point restraints, intubated, paralyzed and on propofol. Between heating and refrigeration inspector hours of July 30 and now he remains in ICU in this status. He is on SIMV. Saturating 99% on an FiO2 of 28%. Vitals are stable. The propofol initially made a mildly hypotensive at 93 systolic but he is bound to back to 114/78. We have lightened up the propofol enough that he will respond to voice and open up his eyes. He did have a fever this morning. It went away with rectal Tylenol. Current Medications - Current Medications Current Medications: Active Medications Acetaminophen (Tylenol) 650 mg MO Q6HR PRN PRN Reason: Pain or Fever > 38C (100.4F) Last Admin: 07/31/18 08:48 Dose: 650 mg Carboxymethylcellulose (Refresh 1% Ophth Drops) 1 drops EACHEYE Q6HR [facility] Last Admin: 07/31/18 13:28 Dose: 1 drops Sodium Chloride (Normal Saline 0.9%) 500 mls @ 0 mls/hr IV Q24H PRN PRN Reason: TKO RATE Lorazepam (Ativan) 100 mls @ 5 mls/hr IV .Q20H [facility]; Protocol Last Titration: 07/31/18 13:00 Dose: 5 mg/hr, 5 mls/hr Propofol (Diprivan) 100 mls @ 4.44 mls/hr IV .[id number] [facility]; Protocol Last Admin: 07/31/18 14:29 Dose: 35 mcg/kg/min, 15.54 mls/hr Potassium Chloride/Dextrose/Sod Cl (D5.45ns W/20 Meq Kcl) 1,000 mls @ 125 mls/hr IV .Q8H [facility] Last Infusion: 07/31/18 09:00 Dose: Infused Multivitamins 10 ml/ Folic Acid 1 mg/ Thiamine HCl 100 mg / Magnesium Sulfate 2 gm/Sodium Chloride 1,015.2 mls @ 100 mls/hr IV DAILY [facility] Last Infusion: 07/31/18 13:00 Dose: 100 mls/hr Lorazepam (Ativan Inj (Vial)) 2 mg IVP Q30M PRN; Protocol PRN Reason: CIWA >8 Last Admin: 07/29/18 21:42 Dose: 2 mg Nicotine (Nicoderm) 1 patch TOP DAILY [facility] Last Admin: 07/31/18 10:14 Dose: 1 patch Pantoprazole Sodium (Protonix) 40 mg IVP QDAC [facility] Last Admin: 07/31/18 06:29 Dose: 40 mg Prochlorperazine Edisylate (Compazine Inj) 10 mg IVP Q6HR PRN PRN Reason: Nausea / Vomiting Sodium Chloride (Normal Saline Flush 0.9%) 10 ml IVP 0100,0900,1700 [facility] Last Admin: 07/31/18 10:15 Dose: 10 ml Sodium Chloride (Normal Saline Flush 0.9%) 10 ml IVP PRN PRN PRN Reason: NEEDED PER PROVIDER ORDERS Multivitamin [Theragran] 1 tab PO DAILY 07/28/18 Objective - Vital Signs/Intake & Output Reviewed Vital Signs: Yes Vital Signs: Vital Signs Temp Pulse Resp BP Pulse Ox 07/31/18 13:00 67 20 114/78 99 07/31/18 12:00 36.5 C 71 16 95/66 97 07/31/18 11:00 75 20 110/75 99 Intake & Output: Intake & Output 07/28/18 07/29/18 07/30/18 07/31/18 23:59 23:59 23:59 23:59 Intake Total 2829.863 2259.733 2109.006 2162.779 Output Total 7806 838 7382 625 Balance 5062.636 2722.733 776.525 3957.779 - Objective General Appearance: positive: Other (Intubated, on propofol, opens eyes to my voice and sternal rub.Very disheveled, bad body odor) Eyes Bilateral: positive: PERRL, EOMI ENT: positive: Other (ET tube in place) Neck: positive: No JVD, Lymphadenopathy (R) (Shotty), Lymphadenopathy (L) (Shotty). negative: Stiff neck, Carotid bruit Respiratory: positive: Chest non-tender, Rhonchi. negative: Wheezes, Rales Cardiovascular: positive: Regular rate & rhythm. negative: Tachycardia, Bradycardia, Systolic murmur, Gallop/S4, Friction rub Abdomen: positive: No organomegaly, Nml bowel sounds, No distention. negative: Guarding, Rebound Skin: positive: Warm, Diaphoresis, Other (Harrison reddened face) Extremities: positive: Pedal edema (Mild) Neurologic/Psychiatric: positive: Other (Intubated. Does respond by opening his eyes and following me but falls asleep immediately. Not really answering yes no for me. All extremities move spontaneously) - Lab Results Fish Bones: 07/31/18 05:01 07/31/18 05:01 Other Labs: Lab Results x24hrs 07/31/18 07/31/18 07/31/18 Range/Units 05:01 05:01 05:01 WBC (4.8-10.8) x10^3/uL RBC (4.70-6.10) 10^6/uL Hgb (14.0-18.0) g/dL Hct (42.0-52.0) % MCV (80.0-94.0) fL MCH (27.0-31.0) pg MCHC (32.0-36.0) g/dL RDW (12.0-15.0) % Plt Count (130-450) 10^3/uL MPV (7.4-11.4) fL Neut # (Auto) (1.5-6.6) 10^3/uL Lymph # (Auto) (1.5-3.5) 10^3/uL Rosebud # (Auto) (0.0-1.0) 10^3/uL Eos # (Auto) (0.0-0.7) 10^3/uL Baso # (Auto) (0.0-0.1) 10^3/uL Absolute Nucleated RBC x10^3/uL Nucleated RBC % /100WBC VBG pH 7.395 (7.31-7.41) Ionized Calcium 1.11 L YES (1.15-1.33) mmol/L Sodium 135 (135-145) mmol/L Potassium 3.9 (3.5-5.0) mmol/L Chloride 107 (101-111) mmol/L Carbon Dioxide 21 (21-32) mmol/L Anion Gap 7.0 (6-13) BUN 7 (6-20) mg/dL Creatinine 0.6 (0.6-1.2) mg/dL Estimated GFR (MDRD) 141 (>89) Glucose 158 H (70-100) mg/dL Calcium 8.3 L 8.4 L (8.5-10.3) mg/dL Phosphorus 2.6 (2.5-4.6) mg/dL Magnesium 1.9 (1.7-2.8) mg/dL Total Bilirubin 0.8 (0.2-1.0) mg/dL AST 51 H (10-42) IU/L ALT 36 (10-60) IU/L Alkaline Phosphatase 67 (42-121) IU/L Total Protein 6.6 L (6.7-8.2) g/dL Albumin 3.3 (3.2-5.5) g/dL Globulin 3.3 (2.1-4.2) g/dL Albumin/Globulin Ratio 1.0 (1.0-2.2) 07/31/18 Range/Units 05:01 WBC 8.6 (4.8-10.8) x10^3/uL RBC 3.36 L (4.70-6.10) 10^6/uL Hgb 12.3 L (14.0-18.0) g/dL Hct 35.0 L (42.0-52.0) % MCV 104.3 H (80.0-94.0) fL MCH 36.6 H (27.0-31.0) pg MCHC 35.1 (32.0-36.0) g/dL RDW 14.2 (12.0-15.0) % Plt Count 112 L (130-450) 10^3/uL MPV 9.6 (7.4-11.4) fL Neut # (Auto) 5.9 (1.5-6.6) 10^3/uL Lymph # (Auto) 1.1 L (1.5-3.5) 10^3/uL Rosebud # (Auto) 1.4 H (0.0-1.0) 10^3/uL Eos # (Auto) 0.2 (0.0-0.7) 10^3/uL Baso # (Auto) 0.0 (0.0-0.1) 10^3/uL Absolute Nucleated RBC 0.01 x10^3/uL Nucleated RBC % 0.1 /100WBC VBG pH (7.31-7.41) Ionized Calcium (1.15-1.33) mmol/L Sodium (135-145) mmol/L Potassium (3.5-5.0) mmol/L Chloride (101-111) mmol/L Carbon Dioxide (21-32) mmol/L Anion Gap (6-13) BUN (6-20) mg/dL Creatinine (0.6-1.2) mg/dL Estimated GFR (MDRD) (>89) Glucose (70-100) mg/dL Calcium (8.5-10.3) mg/dL Phosphorus (2.5-4.6) mg/dL Magnesium (1.7-2.8) mg/dL Total Bilirubin (0.2-1.0) mg/dL AST (10-42) IU/L ALT (10-60) IU/L Alkaline Phosphatase (42-121) IU/L Total Protein (6.7-8.2) g/dL Albumin (3.2-5.5) g/dL Globulin (2.1-4.2) g/dL Albumin/Globulin Ratio (1.0-2.2) - Diagnostic Imaging Diagnostic Imaging Results: positive: Final report reviewed Diagnostic Imaging Comments: CHEST RADIOGRAPHY EXAM DATE: 07/31/2018 05:47 AM. CLINICAL HISTORY: Alcohol withdrawal, sedated on ventilator. COMPARISON: CHEST 1 VIEW 07/30/2018 12:36 AM. TECHNIQUE: 1 view. FINDINGS: Lungs/Pleura: No alveolar consolidation or pleural effusion seen. No pneumothorax. Mediastinum: Within exam limitations, the cardiomediastinal contour is normal. Other: Endotracheal tube is in place with the tip approximately 5.4 cm above the jay. Enteric tube extends well beyond the gastroesophageal junction. IMPRESSION: 1. Tubes and lines appear stable. 2. No acute abnormality seen. Assessment/Plan - Problem List (1) DTs (delirium tremens) Impression: With severe agitation. He had been at the systems security consultant. Needed four-point restraints, Haldol, benzodiazepines. Now in a safe environment with intubation, sedation. Plan: Keep with the same sedation and intubation today. Start to lighten sedation tomorrow morning and hopefully we can extubate. If he starts getting tachycardic, hypertensive, diaphoretic, and agitated, will re-sedated him and keep him intubated. (2) Alcohol withdrawal seizure Impression: He has a previous history of having alcohol withdrawal seizures in the past. He had another one that was what prompted this admission. He has not had any further seizures during the stay. Seizure medications beyond benzodiazepines, specifically Valium, are not warranted at this time. Qualifiers: Complication of substance-induced condition: with unspecified complication Qualified Code(s): F10.239 - Alcohol dependence with withdrawal, unspecified; R56.9 - Unspecified convulsions (3) Alcohol abuse Impression: He received a banana bag. Appropriate multivitamin supplementation. (4) Fever Impression: Fever can be part of delirium tremens. White cell count is normal. Chest x-ray is normal. He does have a Lyon in now. Could be due to some manipulation and prostate trauma. We will continue to monitor. If he spikes again, do blood cultures and possibly start empiric antibiotic therapy. Qualifiers: Fever type: due to other condition Qualified Code(s): R50.81 - Fever presenting with conditions classified elsewhere
[2018-07-31] MEDS: D5.45NS W/20 MEQ KCL 1,000 ML IV SCH ×3 (20:43→22:26)
[2018-07-31] MEDS: SODIUM CHLORIDE 0.9% 500 ML IV PRN (22:24)
[2018-08-01] MEDS: SODIUM CHLORIDE FLUSH 0.9% 10 ML SYRINGE IVP SCH ×4 (00:19→20:37)
[2018-08-01] MEDS: D5.45NS W/20 MEQ KCL 1,000 ML IV SCH ×2 (00:20→05:24)
[2018-08-01] MEDS: LORazepam 100MG/100ML 100 ML IV SCH (00:25)
[2018-08-01 05:01] LABS: CALCIUM 8.4 mg/dL (8.5-10.3); MAGNESIUM 2.1 mg/dL (1.7-2.8); PHOSPHORUS 3.1 mg/dL (2.5-4.6)
[2018-08-01] MEDS: PANTOPRAZOLE 40 MG VIAL IVP SCH (06:05)
[2018-08-01] MEDS: CARBOXYMETHYLCELLULOSE OPHTH DROPS EACHEYE SCH ×3 (06:05→17:17)
--- NOTE | 2018-08-01 07:21 | XRAY Report ---
Reason: Alcohol withdrawal, sedated on vent Procedure Date: 08/01/2018 Accession Number: [id number] / [id number] Procedure: XR - Chest 1 View X-Ray CPT Code: 79123 FULL RESULT: EXAM: CHEST RADIOGRAPHY EXAM DATE: 08/01/2018 06:37 AM. CLINICAL HISTORY: Alcohol withdrawal, sedated on vent. COMPARISON: 07/31/2018. TECHNIQUE: 1 view. FINDINGS: Lungs/Pleura: No focal opacities evident. No pleural effusion. No pneumothorax. Mediastinum: Heart size and mediastinal contour are stable. Other: ET tube again seen with the tip 5.5 cm from the jay. Orogastric tube again seen. IMPRESSION: 1. No acute disease. 2. ET tube and orogastric tube, as described. RADIA
[2018-08-01] MEDS: NICOTINE 21 MG PATCH TOP SCH (08:28)
--- NOTE | 2018-08-01 08:50 | PROVIDER PROGRESS NOTE ---
Subjective - Prog Note Date Prog Note Date: 08/01/18 Prog Note Time: 19:00 - Subjective Subjective: Through the course of the day we have lighten sedation and slowly wean him off the vent. He has been off of the vent and on CPAP for several hours now. Blood gases show him to be stable with regards to CO2 and PO2. Blood pressure stable, not tachycardic. However he is very sedated. nif is -13 at most. We will keep intubated overnight and then attempt to extubate him in the morning. Would like him to be more awake and alert to follow commands. Current Medications - Current Medications Current Medications: Active Medications Acetaminophen (Tylenol) 650 mg [place] Q6HR PRN PRN Reason: Pain or Fever > 38C (100.4F) Last Admin: 07/31/18 18:27 Dose: 650 mg Carboxymethylcellulose (Refresh 1% Ophth Drops) 1 drops EACHEYE Q6HR [facility] Last Admin: 08/01/18 06:05 Dose: 1 drops Sodium Chloride (Normal Saline 0.9%) 500 mls @ 0 mls/hr IV Q24H PRN PRN Reason: TKO RATE Last Admin: 07/31/18 22:24 Dose: 30 mls/hr Lorazepam (Ativan) 100 mls @ 5 mls/hr IV .Q20H [facility]; Protocol Last Titration: 08/01/18 08:29 Dose: 3 mg/hr, 3 mls/hr Propofol (Diprivan) 100 mls @ 4.44 mls/hr IV .[id number] [facility]; Protocol Last Titration: 08/01/18 07:01 Dose: 0 mcg/kg/min, 0 mls/hr Potassium Chloride/Dextrose/Sod Cl (D5.45ns W/20 Meq Kcl) 1,000 mls @ 125 mls/hr IV .Q8H [facility] Last Admin: 08/01/18 05:24 Dose: 125 mls/hr Multivitamins 10 ml/ Folic Acid 1 mg/ Thiamine HCl 100 mg / Magnesium Sulfate 2 gm/Sodium Chloride 1,015.2 mls @ 100 mls/hr IV DAILY [facility] Last Infusion: 07/31/18 20:42 Dose: Infused Lorazepam (Ativan Inj (Vial)) 2 mg IVP Q30M PRN; Protocol PRN Reason: CIWA >8 Last Admin: 07/29/18 21:42 Dose: 2 mg Nicotine (Nicoderm) 1 patch TOP DAILY [facility] Last Admin: 08/01/18 08:28 Dose: 1 patch Pantoprazole Sodium (Protonix) 40 mg IVP QDAC [facility] Last Admin: 08/01/18 06:05 Dose: 40 mg Prochlorperazine Edisylate (Compazine Inj) 10 mg IVP Q6HR PRN PRN Reason: Nausea / Vomiting Sodium Chloride (Normal Saline Flush 0.9%) 10 ml IVP 0100,0900,1700 [facility] Last Admin: 08/01/18 08:29 Dose: 10 ml Sodium Chloride (Normal Saline Flush 0.9%) 10 ml IVP PRN PRN PRN Reason: NEEDED PER PROVIDER ORDERS Multivitamin [Theragran] 1 tab PO DAILY 07/28/18 Objective - Vital Signs/Intake & Output Reviewed Vital Signs: Yes Vital Signs: Vital Signs Temp Pulse Pulse Resp BP Pulse Ox 08/01/18 08:00 36.9 C 79 23 107/72 96 08/01/18 07:26 78 08/01/18 07:00 65 15 113/79 100 08/01/18 06:00 70 20 106/75 99 08/01/18 05:19 74 08/01/18 05:00 74 20 108/72 99 Intake & Output: Intake & Output 07/29/18 07/30/18 07/31/18 08/01/18 23:59 23:59 23:59 23:59 Intake Total 2259.733 2109.006 3106.373 1118.893 Output Total 300 1610 1360 568 Balance 1959.733 287.256 4892.373 550.893 - Objective General Appearance: positive: No acute distress, Other (Intubated, was on propofol this morning and by this afternoon not on propofol. We will slowly open eyes and look at his mom. But no yes or no responses.) Eyes Bilateral: positive: PERRL ENT: positive: Pharynx nml Neck: positive: No JVD. negative: Stiff neck, Carotid bruit Respiratory: positive: Chest non-tender. negative: Wheezes, Rales, Rhonchi Cardiovascular: positive: Regular rate & rhythm. negative: Systolic murmur, Gallop/S4, Friction rub Abdomen: positive: Non-tender, No organomegaly, Nml bowel sounds. negative: Guarding, Rebound Extremities: positive: Non-tender, Pedal edema - Lab Results Fish Bones: 07/31/18 05:01 08/02/18 04:20 Other Labs: Lab Results x24hrs 08/01/18 08/01/18 08/01/18 Range/Units 04:15 04:15 04:15 Calcium 8.4 L (8.5-10.3) mg/dL Ionized Calcium NO Phosphorus 3.1 (2.5-4.6) mg/dL Magnesium 2.1 (1.7-2.8) mg/dL Albumin 3.2 (3.2-5.5) g/dL Assessment/Plan - Problem List (1) DTs (delirium tremens) Impression: With severe agitation. He head butted the security delivery specialist. Needed four-point restraints, Haldol, benzodiazepines. Now in a safe environment with intubation, sedation for the last 48 hours. Plan: Will keep off the sedation and continue intubation overnight.. Extubate tomorrow morning . If he starts getting tachycardic, hypertensive, diaphoretic, and agitated, will re-sedated him and keep him intubated. (2) Alcohol withdrawal seizure Impression: He has a previous history of having alcohol withdrawal seizures in the past. He had another one that was what prompted this admission. He has not had any further seizures during the stay. Seizure medications beyond benzodiazepines, specifically Valium, are not warranted at this time. Qualifiers: Complication of substance-induced condition: with unspecified complication Qualified Code(s): F10.239 - Alcohol dependence with withdrawal, unspecified; R56.9 - Unspecified convulsions (3) Alcohol abuse Impression: He received a banana bag. Appropriate multivitamin supplementation. (4) Fever Impression: Fever can be part of delirium tremens. Tmax today was 37.7 at noon. White cell count is normal. Chest x-ray is normal. He does have a Lyon in now. Could be due to some manipulation and prostate trauma. We will continue to monitor. If he spikes again, do blood cultures and possibly start empiric antibiotic therapy. Qualifiers: Fever type: due to other condition Qualified Code(s): R50.81 - Fever presenting with conditions classified elsewhere (2) Alcohol withdrawal seizure Qualifiers: Qualified Code(s): F10.239 - Alcohol dependence with withdrawal, unspecified; R56.9 - Unspecified convulsions
[2018-08-01] MEDS: MULTIVITAMIN 10 ML, FOLIC ACID INJ 1 MG, THIAMINE INJ 100 MG, MAGNESIUM SULFATE 2 GM in... IV SCH ×5 (09:19)
[2018-08-01] MEDS: SODIUM CHLORIDE 0.9% 500 ML IV PRN (15:08)
[2018-08-01 15:31] LABS: ABG BASE EXCESS -3.2 mmol/L (-2.0-3.0); ABG HCO3 21.2 mmol/L (22.0-26.0); ABG PCO2 36 mmHg (34-45); ABG PH 7.39 (7.35-7.45); ABG PO2 98 mmHg (80-100); ABG TCO2 22.3 MMOL/L (21.0-29.0)
[2018-08-01 15:32] LABS: ABG OXYGEN SATURATION 98 % (94-98)
[2018-08-01] MEDS: LORazepam 2 MG/ML VIAL IVP PRN (20:35)
[2018-08-02] MEDS: CARBOXYMETHYLCELLULOSE OPHTH DROPS EACHEYE SCH ×4 (00:17→19:44)
[2018-08-02] MEDS: SODIUM CHLORIDE FLUSH 0.9% 10 ML SYRINGE IVP SCH ×2 (01:48→19:44)
[2018-08-02] MEDS: LORazepam 2 MG/ML VIAL IVP PRN (01:48)
[2018-08-02] MEDS ORDERED: HALOPERIDOL 5 MG/ML VIAL IVP ONE (02:49)
[2018-08-02] MEDS: SODIUM CHLORIDE FLUSH 0.9% 10 ML SYRINGE IVP PRN ×2 (03:09→07:03)
[2018-08-02 05:23] LABS: BUN - BLOOD UREA NITROGEN < 5 mg/dL (6-20); CARBON DIOXIDE - CO2 21 mmol/L (21-32); CHLORIDE 102 mmol/L (101-111); CREATININE 0.6 mg/dL (0.6-1.2); GFR - MDRD 141 (>89); GLUCOSE 107 mg/dL (70-100); SODIUM 135 mmol/L (135-145)
[2018-08-02] MEDS: PANTOPRAZOLE 40 MG VIAL IVP SCH (07:03)
--- NOTE | 2018-08-02 08:14 | PROVIDER PROGRESS NOTE ---
Subjective - Prog Note Date Prog Note Date: 08/02/18 Prog Note Time: 08:12 - Subjective Subjective: Overnight, he became a little more agitated and needed Haldol this time. Otherwise his respiratory status with regards to rate, oxygenation need, blood pressure, pulse remained stable. Current Medications - Current Medications Current Medications: Active Medications Acetaminophen (Tylenol) 650 mg [place] Q6HR PRN PRN Reason: Pain or Fever > 38C (100.4F) Last Admin: 07/31/18 18:27 Dose: 650 mg Carboxymethylcellulose (Refresh 1% Ophth Drops) 1 drops EACHEYE Q6HR [facility] Last Admin: 08/02/18 07:06 Dose: 1 drops Sodium Chloride (Normal Saline 0.9%) 500 mls @ 0 mls/hr IV Q24H PRN PRN Reason: TKO RATE Last Admin: 08/01/18 15:08 Dose: 30 mls/hr Lorazepam (Ativan) 100 mls @ 5 mls/hr IV .Q20H [facility]; Protocol Last Titration: 08/01/18 09:32 Dose: 0 mg/hr, 0 mls/hr Propofol (Diprivan) 100 mls @ 4.44 mls/hr IV .[id number] [facility]; Protocol Last Titration: 08/01/18 09:42 Dose: Infused Potassium Chloride/Dextrose/Sod Cl (D5.45ns W/20 Meq Kcl) 1,000 mls @ 125 m ls/hr IV .Q8H [facility] Last Admin: 08/01/18 05:24 Dose: 125 mls/hr Multivitamins 10 ml/ Folic Acid 1 mg/ Thiamine HCl 100 mg / Magnesium Sulfate 2 gm/Sodium Chloride 1,015.2 mls @ 100 mls/hr IV DAILY [facility] Last Admin: 08/01/18 09:19 Dose: 100 mls/hr Lorazepam (Ativan Inj (Vial)) 2 mg IVP Q30M PRN; Protocol PRN Reason: CIWA >8 Last Admin: 08/02/18 01:48 Dose: 2 mg Nicotine (Nicoderm) 1 patch TOP DAILY [facility] Last Admin: 08/01/18 08:28 Dose: 1 patch Pantoprazole Sodium (Protonix) 40 mg IVP QDAC [facility] Last Admin: 08/02/18 07:03 Dose: 40 mg Prochlorperazine Edisylate (Compazine Inj) 10 mg IVP Q6HR PRN PRN Reason: Nausea / Vomiting Sodium Chloride (Normal Saline Flush 0.9%) 10 ml IVP 0100,0900,1700 [facility] Last Admin: 08/02/18 01:48 Dose: 10 ml Sodium Chloride (Normal Saline Flush 0.9%) 10 ml IVP PRN PRN PRN Reason: NEEDED PER PROVIDER ORDERS Last Admin: 08/02/18 07:03 Dose: 10 ml Multivitamin [Theragran] 1 tab PO DAILY 07/28/18 Objective - Vital Signs/Intake & Output Reviewed Vital Signs: Yes Vital Signs: Vital Signs Pulse Pulse Resp BP Pulse Ox 08/02/18 07:20 105 H 08/02/18 07:00 101 H 23 141/98 H 94 08/02/18 06:00 104 H 26 H 150/94 H 94 08/02/18 05:00 89 91 22 136/86 H 95 Intake & Output: Intake & Output 07/30/18 07/31/18 08/01/18 08/02/18 23:59 23:59 23:59 23:59 Intake Total 2109.006 3106.373 1621.093 Output Total 1610 1360 2603 1435 Balance 502.867 0568.373 -981.907 -1435 - Objective General Appearance: positive: No acute distress, Lethargic, Other (Disheveled white male who looks his stated age, still continues to have pretty bad bad odor) Eyes Bilateral: positive: PERRL, EOMI ENT: positive: Other (Face is flushed and red. Probably tanned.) Neck: positive: No JVD, Lymphadenopathy (R) (Shotty), Lymphadenopathy (L) (Shotty). negative: Stiff neck, Carotid bruit Respiratory: positive: Chest non-tender, Rhonchi (Coarse upper airway tubular breath sounds, some gurgling phlegm). negative: Wheezes, Rales Cardiovascular: positive: Regular rate & rhythm. negative: Systolic murmur, Gallop/S4, Friction rub Abdomen: positive: Non-tender, No organomegaly, Nml bowel sounds, No distention. negative: Guarding, Rebound Skin: positive: Warm, Diaphoresis Extremities: positive: Full ROM, Pedal edema - Lab Results Fish Bones: 07/31/18 05:01 08/02/18 04:20 Other Labs: Lab Results x24hrs 08/02/18 08/01/18 Range/Units 04:20 15:23 Bld Gas Analysis Time 1531 Sample Site LEFT RADIAL ABG pH 7.39 (7.35-7.45) ABG pCO2 36 (34-45) mmHg ABG pO2 98 (80-100) mmHg ABG HCO3 21.2 L (22.0-26.0) mmol/L ABG Total CO2 22.3 (21.0-29.0) MMOL/L ABG O2 Saturation 98 (94-98) % ABG Base Excess -3.2 L (-2.0-3.0) mmol/L Janes Test NOT APPLICABLE O2 Delivery Device VENTILATOR FiO2 28.00 PEEP 5 cmH2O Pressure Support Vent 12 cmH2O Sodium 135 (135-145) mmol/L Potassium 3.8 (3.5-5.0) mmol/L Chloride 102 (101-111) mmol/L Carbon Dioxide 21 (21-32) mmol/L Anion Gap 12.0 (6-13) BUN < 5 L (6-20) mg/dL Creatinine 0.6 (0.6-1.2) mg/dL Estimated GFR (MDRD) 141 (>89) Glucose 107 H (70-100) mg/dL Calcium 9.0 (8.5-10.3) mg/dL Assessment/Plan - Problem List (1) DTs (delirium tremens) Impression: With severe agitation. He head butted the information security. Needed four-point restraints, Haldol, benzodiazepines. Now in a safe environment with intubation, sedation for the last 72 hours. Overnight he needed Haldol. Def became more awake. Plan: Will keep off the sedation and aim for extubation this morning. If he starts getting tachycardic, hypertensive, diaphoretic, and agitated, will re-sedated him and keep him intubated. (2) Alcohol withdrawal seizure Impression: He has a previous history of having alcohol withdrawal seizures in the past. He had another one that was what prompted this admission. He has not had any further seizures during the stay. Seizure medications beyond benzodiazepines, specifically Valium, are not warranted at this time. Qualifiers: Complication of substance-induced condition: with unspecified complication Qualified Code(s): F10.239 - Alcohol dependence with withdrawal, unspecified; R56.9 - Unspecified convulsions (3) Alcohol abuse Impression: He received a banana bag. Appropriate multivitamin supplementation. (4) Fever Impression: Fever can be part of delirium tremens. Tmax was 37.7 at noon yesterday. White cell count is normal. Chest x-ray is normal. He does have a Lyon in now. Could be due to some manipulation and prostate trauma. We will continue to monitor. If he spikes again, do blood cultures and possibly start empiric antibiotic therapy. Qualifiers: Fever type: due to other condition Qualified Code(s): R50.81 - Fever presenting with conditions classified elsewhere (2) Alcohol withdrawal seizure Qualifiers: Qualified Code(s): F10.239 - Alcohol dependence with withdrawal, unspecified; R56.9 - Unspecified convulsions
[2018-08-02] MEDS: NICOTINE 21 MG PATCH TOP SCH (09:08)
[2018-08-02] MEDS: MULTIVITAMIN 10 ML, FOLIC ACID INJ 1 MG, THIAMINE INJ 100 MG, MAGNESIUM SULFATE 2 GM in... IV SCH ×5 (09:13)
[2018-08-02] MEDS: ALBUTEROL NEB 2.5 MG/3 ML INH PRN (13:14)
--- NOTE | 2018-08-02 14:26 | XRAY Report ---
Reason: fever, intubated Procedure Date: 08/02/2018 Accession Number: [id number] / [id number] Procedure: XR - Chest 1 View X-Ray CPT Code: 60256 FULL RESULT: EXAM: CHEST RADIOGRAPHY EXAM DATE: 08/02/2018 12:51 PM. CLINICAL HISTORY: Status post intubation with fever. COMPARISON: CHEST 1 VIEW 08/01/2018 6:36 AM. TECHNIQUE: 1 view. FINDINGS: Lungs/Pleura: No focal opacities evident. No pleural effusion. No pneumothorax. Mediastinum: Within exam limitations, the cardiomediastinal contour is normal. Other: The endotracheal tube terminates 5.4 cm above the jay. The silhouette of the endotracheal tube balloon demonstrates a caliber of 2.5 cm with nearby trachea demonstrating a caliber of approximate 1.5 cm. IMPRESSION: Recommend decreasing inflation of the endotracheal balloon to avoid tracheal necrosis. RADIA
[2018-08-02] MEDS: D5.45NS W/20 MEQ KCL 1,000 ML IV SCH ×2 (19:29→20:00)
[2018-08-02] MEDS: LORazepam 100MG/100ML 100 ML IV SCH (19:30)
[2018-08-03] MEDS: D5.45NS W/20 MEQ KCL 1,000 ML IV SCH ×5 (03:58→17:19)
[2018-08-03] MEDS: SODIUM CHLORIDE FLUSH 0.9% 10 ML SYRINGE IVP SCH ×4 (03:58→17:19)
[2018-08-03 05:19] LABS: CALCIUM 9.4 mg/dL (8.5-10.3); CREATININE 0.6 mg/dL (0.6-1.2)
[2018-08-03] MEDS: CARBOXYMETHYLCELLULOSE OPHTH DROPS EACHEYE SCH ×4 (05:49→17:20)
[2018-08-03] MEDS: LORazepam 100MG/100ML 100 ML IV SCH ×2 (05:49→05:50)
[2018-08-03] MEDS: PANTOPRAZOLE 40 MG VIAL IVP SCH (06:46)
[2018-08-03] MEDS: MULTIVITAMIN 10 ML, FOLIC ACID INJ 1 MG, THIAMINE INJ 100 MG, MAGNESIUM SULFATE 2 GM in... IV SCH ×5 (09:10)
[2018-08-03] MEDS: NICOTINE 21 MG PATCH TOP SCH (10:16)
--- NOTE | 2018-08-03 10:39 | PROVIDER PROGRESS NOTE ---
Subjective - Prog Note Date Prog Note Date: 08/03/18 Prog Note Time: 10:41 - Subjective Subjective: His eyes are closed but he is cooperating with the bath aid. She is doing oral hygiene and he is opening his mouth and cooperating with that. Yesterday he was not. He still coughing up copious secretions. Had 2 temperature spikes yesterday with a negative chest x-ray yesterday. No seizures. Oxygen requirement stable. No tachycardia. Mild elevated blood pressure in the 150 systolic. Current Medications - Current Medications Current Medications: Active Medications Acetaminophen (Tylenol) 650 mg MI Q6HR PRN PRN Reason: Pain or Fever > 38C (100.4F) Last Admin: 07/31/18 18:27 Dose: 650 mg Albuterol () 2.5 mg INH RTQ4H PRN PRN Reason: Wheezing Last Admin: 08/02/18 13:14 Dose: 2.5 mg Carboxymethylcellulose (Refresh 1% Ophth Drops) 1 drops EACHEYE Q6HR SOLIS Last Admin: 08/03/18 06:29 Dose: Not Given Sodium Chloride (Normal Saline 0.9%) 500 mls @ 0 mls/hr IV Q24H PRN PRN Reason: TKO RATE Last Infusion: 08/02/18 07:49 Dose: Infused Lorazepam (Ativan) 100 mls @ 5 mls/hr IV .Q20H SOLIS; Protocol Last Admin: 08/03/18 05:50 Dose: Not Given Propofol (Diprivan) 100 mls @ 4.44 mls/hr IV .[id number] SOLIS; Protocol Last Titration: 08/01/18 09:42 Dose: Infused Potassium Chloride/Dextrose/Sod Cl (D5.45ns W/20 Meq Kcl) 1,000 mls @ 125 mls /hr IV .Q8H SOLIS Last Admin: 08/03/18 08:09 Dose: Not Given Multivitamins 10 ml/ Folic Acid 1 mg/ Thiamine HCl 100 mg / Magnesium Sulfate 2 gm/Sodium Chloride 1,015.2 mls @ 100 mls/hr IV DAILY SOLIS Last Admin: 08/03/18 09:10 Dose: 100 mls/hr Lorazepam (Ativan Inj (Vial)) 2 mg IVP Q30M PRN; Protocol PRN Reason: CIWA >8 Last Admin: 08/02/18 01:48 Dose: 2 mg Nicotine (Nicoderm) 1 patch TOP DAILY [facility] Last Admin: 08/03/18 10:16 Dose: 1 patch Pantoprazole Sodium (Protonix) 40 mg IVP QDAC [facility] Last Admin: 08/03/18 06:46 Dose: 40 mg Prochlorperazine Edisylate (Compazine Inj) 10 mg IVP Q6HR PRN PRN Reason: Nausea / Vomiting Sodium Chloride (Normal Saline Flush 0.9%) 10 ml IVP 0100,0900,1700 [facility] Last Admin: 08/03/18 09:22 Dose: 10 ml Sodium Chloride (Normal Saline Flush 0.9%) 10 ml IVP PRN PRN PRN Reason: NEEDED PER PROVIDER ORDERS Last Admin: 08/02/18 07:03 Dose: 10 ml Multivitamin [Theragran] 1 tab PO DAILY 07/28/18 Objective - Vital Signs/Intake & Output Reviewed Vital Signs: Yes Vital Signs: Vital Signs Pulse Pulse Resp BP Pulse Ox 08/03/18 09:30 84 22 08/03/18 07:37 102 H 22 167/93 H 08/03/18 07:00 98 27 H 167/93 H 97 Intake & Output: Intake & Output 07/31/18 08/01/18 08/02/18 08/03/18 23:59 23:59 23:59 23:59 Intake Total 3106.373 3636.293 2765.2 1250.000 Output Total 1360 2603 3835 1515 Balance 4251.991 6732.293 -1069.8 -265.000 - Objective General Appearance: positive: No acute distress, Other (Middle-aged white male who looks slightly older than stated age, shaky, eyes closed, minimally verbal.) Eyes Bilateral: positive: PERRL, EOMI ENT: positive: Dry mucous membranes, Other (Moderate seborrhea along his mane line, acne rosacea of the face) Neck: positive: No JVD. negative: Stiff neck, Carotid bruit Respiratory: positive: Chest non-tender, No respiratory distress, Rhonchi, Other (Every once normal his respiratory rate will get up to 25 and then go back down again.). negative: Wheezes, Rales Cardiovascular: positive: Regular rate & rhythm, Tachycardia (To the low 100s at time.). negative: Systolic murmur, Gallop/S4, Friction rub Abdomen: positive: Non-tender, No organomegaly, Nml bowel sounds, No distention Skin: positive: Warm, Diaphoresis Extremities: positive: Non-tender, Pedal edema Neurologic/Psychiatric: positive: Motor nml (Tremulous, but moving all extremities spontaneously. Will grab for yankauer, grab aids hand, grab the bed rails. Spontaneously moves his legs in an effort to get out of bed.), Disoriented to person, Disoriented to place, Disoriented to time, Slurred/abnml speech Babinski Reflex: Right: Down, Left: Down - Lab Results Fish Bones: 07/31/18 05:01 08/03/18 04:40 Other Labs: Lab Results x24hrs 08/03/18 Range/Units 04:40 Sodium 137 (135-145) mmol/L Potassium 3.7 (3.5-5.0) mmol/L Chloride 101 (101-111) mmol/L Carbon Dioxide 23 (21-32) mmol/L Anion Gap 13.0 (6-13) BUN 5 L (6-20) mg/dL Creatinine 0.6 (0.6-1.2) mg/dL Estimated GFR (MDRD) 141 (>89) Glucose 141 H (70-100) mg/dL Calcium 9.4 (8.5-10.3) mg/dL Assessment/Plan - Problem List (1) DTs (delirium tremens) Impression: With severe agitation. He head butted the security solutions engineer. Needed four-point restraints, Haldol, benzodiazepines. Was placed in safe environment with intubation, sedation for the last 72 hours. Needed Haldol once when we started weaning him because so agitated. Extubated yesterday. Has copious secretions. Not following commands well. Confused. Disoriented. But stable O2 requirement. No struggle to breath. Plan: Continue with CIWA protocol. Order PT. (2) Alcohol withdrawal seizure Impression: Once only so far. On day of admission. He has a previous history of having alcohol withdrawal seizures in the past. He had another one that was what prompted this admission. He has not had any further seizures during the stay. Seizure medications beyond benzodiazepines, specifically Valium, are not warranted at this time. Qualifiers: Complication of substance-induced condition: with unspecified complication Qualified Code(s): F10.239 - Alcohol dependence with withdrawal, unspecified; R56.9 - Unspecified convulsions (3) Alcohol abuse Impression: He received a banana bag. Appropriate multivitamin supplementation. (4) Fever Impression: Fever can be part of delirium tremens. 2 temperature spikes to 38.3 yesterday. White cell count is normal. Chest x-ray is normal. He does have a Lyon in now. Could be due to some manipulation and prostate trauma. We will continue to monitor. Has copious secretions. Start empiric abx for ?bronchitis. Qualifiers: Fever type: due to other condition Qualified Code(s): R50.81 - Fever pre senting with conditions classified elsewhere (4) Nutrition and vitamins. Start vitamin daily. Already had bannana bag on admit. Start pureed diet. (2) Alcohol withdrawal seizure Qualifiers: Qualified Code(s): F10.239 - Alcohol dependence with withdrawal, unspecified; R56.9 - Unspecified convulsions
[2018-08-03] MEDS: PRENATAL VITAMIN TABLET PO SCH (12:22)
[2018-08-03] MEDS: cefTRIAXone 2 GM in SODIUM CHLORIDE 0.9% MINIBAG 100 ML IV SCH (12:22)
[2018-08-03] MEDS: LORazepam 2 MG/ML VIAL IVP PRN ×3 (17:48→21:49)
[2018-08-04] MEDS: CARBOXYMETHYLCELLULOSE OPHTH DROPS EACHEYE SCH ×4 (00:43→17:46)
[2018-08-04] MEDS: D5.45NS W/20 MEQ KCL 1,000 ML IV SCH (01:17)
[2018-08-04] MEDS: LORazepam 2 MG/ML VIAL IVP PRN (05:12)
[2018-08-04 05:22] LABS: CALCIUM 9.3 mg/dL (8.5-10.3); CREATININE 0.6 mg/dL (0.6-1.2)
[2018-08-04] MEDS: LORazepam 100MG/100ML 100 ML IV SCH (05:47)
[2018-08-04] MEDS: PANTOPRAZOLE 40 MG VIAL IVP SCH (06:23)
[2018-08-04] MEDS: SODIUM CHLORIDE FLUSH 0.9% 10 ML SYRINGE IVP SCH ×3 (06:25→15:59)
--- NOTE | 2018-08-04 08:09 | PROVIDER PROGRESS NOTE ---
Subjective - Prog Note Date Prog Note Date: 08/04/18 Prog Note Time: 08:09 - Subjective Subjective: He tries to get up at night. Which then results in agitation on his part when he cannot get up. And he has required Ativan. He pulled out his IV in his left arm. His right IV site is getting a little bit of phlebitis. When he does get up his gait is ataxic, he is tremulous, not coordinated. He is having a tremendous amount of tongue pain. Nursing reported that he drank some orange juice this morning and he had to spit it out because the burning of his tongue and mucosa was so horribly fears. He was started on antibiotics yesterday for spikes in his temperature to 38.3. His last temperature spike was in the afternoon of August 02 at noon and he was 33. Since then he has been afebrile. Still continues to cough phlegm that is getting thicker. Colorless. No abdominal pain. No diarrhea. Current Medications - Current Medications Current Medications: Active Medications Acetaminophen (Tylenol) 650 mg [place] Q6HR PRN PRN Reason: Pain or Fever > 38C (100.4F) Last Admin: 07/31/18 18:27 Dose: 650 mg Albuterol () 2.5 mg INH RTQ4H PRN PRN Reason: Wheezing Last Admin: 08/02/18 13:14 Dose: 2.5 mg Carboxymethylcellulose (Refresh 1% Ophth Drops) 1 drops EACHEYE Q6HR SOLIS Last Admin: 08/04/18 06:23 Dose: 1 drops Sodium Chloride (Normal Saline 0.9%) 500 mls @ 0 mls/hr IV Q24H PRN PRN Reason: TKO RATE Last Infusion: 08/02/18 07:49 Dose: Infused Lorazepam (Ativan) 100 mls @ 5 mls/hr IV .Q20H SOLIS; Protocol Last Admin: 08/04/18 05:47 Dose: Not Given Potassium Chloride/Dextrose/Sod Cl (D5.45ns W/20 Meq Kcl) 1,000 mls @ 125 mls/hr IV .Q8H SOLIS Last Admin: 08/04/18 01:17 Dose: 125 mls/hr Multivitamins 10 ml/ Folic Acid 1 mg/ Thiamine HCl 100 mg / Magnesium Sulfate 2 gm/Sodium Chloride 1,015.2 mls @ 100 mls/hr IV DAILY [facility] Last Infusion: 08/03/18 19:25 Dose: Infused Ceftriaxone Sodium 2 gm/ (Sodium Chloride) 100 mls @ 200 mls/hr IV DAILY [facility] Last Infusion: 08/03/18 12:52 Dose: Infused Lorazepam (Ativan Inj (Vial)) 2 mg IVP Q30M PRN; Protocol PRN Reason: CIWA >8 Last Admin: 08/04/18 05:12 Dose: 2 mg Nicotine (Nicoderm) 1 patch TOP DAILY [facility] Last Admin: 08/03/18 10:16 Dose: 1 patch Pantoprazole Sodium (Protonix) 40 mg IVP QDAC [facility] Last Admin: 08/04/18 06:23 Dose: 40 mg Multivit/Folic Acid/Iron (Trinatal Rx 1) 1 tab PO DAILYWM [facility] Last Admin: 08/03/18 12:22 Dose: 1 tab Prochlorperazine Edisylate (Compazine Inj) 10 mg IVP Q6HR PRN PRN Reason: Nausea / Vomiting Sodium Chloride (Normal Saline Flush 0.9%) 10 ml IVP 0100,0900,1700 [facility] Last Admin: 08/04/18 06:25 Dose: 10 ml Sodium Chloride (Normal Saline Flush 0.9%) 10 ml IVP PRN PRN PRN Reason: NEEDED PER PROVIDER ORDERS Last Admin: 08/02/18 07:03 Dose: 10 ml Multivitamin [Theragran] 1 tab PO DAILY 07/28/18 Objective - Vital Signs/Intake & Output Vital Signs: Vital Signs x48h Temp Pulse Resp BP Pulse Ox 08/04/18 07:00 107 H 25 H 133/91 H 08/04/18 06:00 77 23 132/89 H 08/04/18 05:00 116 H 27 H 174/100 H 08/04/18 04:00 36.7 C 87 22 146/92 H 96 08/04/18 03:00 108 H 27 H 147/100 H 08/04/18 02:00 88 25 H 151/75 H 95 08/04/18 01:00 87 24 141/92 H Intake & Output: Intake & Output 08/01/18 08/02/18 08/03/18 08/04/18 23:59 23:59 23:59 23:59 Intake Total 3636.293 2765.2 3221.450 285.417 Output Total 4563 2685 2499 1400 Balance 1033.293 -1069.8 722.450 -1114.583 - Objective General Appearance: positive: No acute distress, Alert, Other (His tongue really hurts. Eyes are closed for the most part until you address them and eyes will open. Seborrhea of face is an angry red rash now that nursing has shaved him.) Eyes Bilateral: positive: PERRL, EOMI ENT: positive: No signs of dehydration Neck: positive: No JVD. negative: Stiff neck, Carotid bruit Respiratory: positive: Chest non-tender, Rhonchi. negative: Wheezes, Rales Cardiovascular: positive: Regular rate & rhythm, Tachycardia (101-111 every 2-3 hours for a few minutes at a time.), Systolic murmur. negative: Gallop/S4, Friction rub Abdomen: positive: Non-tender, No organomegaly, Nml bowel sounds, No distention Extremities: positive: Full ROM, No pedal edema Neurologic/Psychiatric: positive: Oriented x3, Motor nml (but still shakey), Weakness, Slurred/abnml speech (from low, whispery hoarse voice). negative: CN's nml (2-12) (vocal chords? damaged), Facial droop - Lab Results Fish Bones: 07/31/18 05:01 08/04/18 04:50 Other Labs: Lab Results x24hrs 08/04/18 08/04/18 Range/Units 06:25 04:50 Sodium 134 L (135-145) mmol/L Potassium 3.9 (3.5-5.0) mmol/L Chloride 98 L (101-111) mmol/L Carbon Dioxide 25 (21-32) mmol/L Anion Gap 11.0 (6-13) BUN 6 (6-20) mg/dL Creatinine 0.6 (0.6-1.2) mg/dL Estimated GFR (MDRD) 141 (>89) Glucose 129 H (70-100) mg/dL Calcium 9.3 (8.5-10.3) mg/dL Ammonia 12.5 (7-35) umol/L ABX Reporting Has patient been on IV antibiotics over the past 48 hours?: Yes Assessment/Plan - Problem List (1) DTs (delirium tremens) Impression: Impression: With severe agitation. He head butted the security site supervisor. Needed four-point restraints, Haldol, benzodiazepines. Was placed in safe environment with intubation, sedation for 72 hours. Needed Haldol once when we started weaning him because so agitated. Extubated 08/02. Has copious secretions. Not following commands well. Confused. Disoriented. But stable O2 requirement. No struggle to breath. He has needed small doses of ativan 08/02 and 08/03. His mom has been in the room with him and he is more cooperative this am. Alert. Plan: Stop CIWA protocol. Transfer from ICU status to Med Surg status. PT has been working with him since yesterday. To continue (2) Alcohol withdrawal seizure Impression: Once only so far. On day of admission. He has a previous history of having alcohol withdrawal seizures in the past. He had another one that was what prompted this admission. He has not had any further seizures during the stay. Seizure medications beyond benzodiazepines, specifically Valium, are not warranted at this time. Qualifiers: Complication of substance-induced condition: with unspecified complication Qualified Code(s): F10.239 - Alcohol dependence with withdrawal, unspecified; R56.9 - Unspecified convulsions (3) Alcohol abuse Impression: He received a banana bag. Appropriate multivitamin supplementation. Now just on po vitamins, no IV bags. (4) Fever Impression: Resolved. Fever can be part of delirium tremens. 2 temperature spikes to 38.3 on 08/02. White cell count is normal. Chest x-ray is normal. He does have a Teran in now. Could be due to some manipulation and prostate trauma. We will continue to monitor. Has copious secretions. Start empiric abx for ?bronchitis. Stop teran today. Rocephin Day #2. Qualifiers: Fever type: due to other condition Qualified Code(s): R50.81 - Fever presenting with conditions classified elsewhere (5) Nutrition and vitamins. Started vitamin daily. Already had bannana bag on admit. Started on pureed diet and advanced to regular diet yesterday. This am I will stop IVF. (6) Seborrhea of face Ketoconazole cream bid. (2) Alcohol withdrawal seizure Qualifiers: Qualified Code(s): F10.239 - Alcohol dependence with withdrawal, unspecified; R56.9 - Unspecified convulsions
[2018-08-04] MEDS: PRENATAL VITAMIN TABLET PO SCH (08:45)
[2018-08-04] MEDS: cefTRIAXone 2 GM in SODIUM CHLORIDE 0.9% MINIBAG 100 ML IV SCH (09:07)
[2018-08-04] MEDS: NICOTINE 21 MG PATCH TOP SCH (09:13)
[2018-08-04] MEDS: ALBUTEROL NEB 2.5 MG/3 ML INH PRN ×3 (10:03→19:26)
[2018-08-04] MEDS: guaiFENesin 600 MG TABLET PO SCH ×2 (11:50→21:16)
[2018-08-04] MEDS ORDERED: MAGNESIUM HYDROXIDE 2,400 MG/30 ML UDC PO ONE (13:02)
[2018-08-04] MEDS: KETOCONAZOLE 2% CREAM 15 GM TUBE TOP SCH ×2 (14:48→21:16)
[2018-08-05] MEDS: CARBOXYMETHYLCELLULOSE OPHTH DROPS EACHEYE SCH ×5 (01:00→23:55)
[2018-08-05] MEDS: SODIUM CHLORIDE FLUSH 0.9% 10 ML SYRINGE IVP SCH ×4 (01:00→23:55)
[2018-08-05] MEDS: PANTOPRAZOLE 40 MG VIAL IVP SCH (06:40)
[2018-08-05] MEDS: cefTRIAXone 2 GM in SODIUM CHLORIDE 0.9% MINIBAG 100 ML IV SCH (08:35)
[2018-08-05] MEDS: NICOTINE 21 MG PATCH TOP SCH (08:36)
[2018-08-05] MEDS: guaiFENesin 600 MG TABLET PO SCH ×2 (08:36→20:40)
[2018-08-05] MEDS: PRENATAL VITAMIN TABLET PO SCH (08:36)
[2018-08-05] MEDS: MAGNESIUM CITRATE 296 ML BOTTLE PO ONE ×2 (08:38→08:40)
[2018-08-05] MEDS: KETOCONAZOLE 2% CREAM 15 GM TUBE TOP SCH ×2 (08:47→20:41)
[2018-08-05] MEDS: SENNA 8.6 MG TABLET PO SCH (09:32)
[2018-08-05] MEDS: DOCUSATE SODIUM 250 MG CAPSULE PO SCH (09:32)
--- NOTE | 2018-08-05 13:56 | PROVIDER PROGRESS NOTE ---
Subjective - Prog Note Date Prog Note Date: 08/05/18 Prog Note Time: 13:56 - Subjective Pt reports feeling: Improved Subjective: He is walking with a nurse in the room. And walk with physical therapy in the hallway. He does well if he is prompted and the only has to go in the forward direction. If you have him stop and say okay walk a little bit backward, he cannot process. If you say stop and turn to the right he does not process. So a little slow in his responses. But when asked where he is, how he feels, his responses are good. Still has a very very low whispery voice, hoarseness, and sore tongue from where he bit himself. Current Medications - Current Medications Current Medications: Active Medications Acetaminophen (Tylenol) 650 mg [place] Q6HR PRN PRN Reason: Pain or Fever > 38C (100.4F) Last Admin: 07/31/18 18:27 Dose: 650 mg Albuterol () 2.5 mg INH RTQ4H PRN PRN Reason: Wheezing Last Admin: 08/04/18 19:26 Dose: 2.5 mg Carboxymethylcellulose (Refresh 1% Ophth Drops) 1 drops EACHEYE Q6HR [facility]IS Last Admin: 08/05/18 06:41 Dose: 1 drops Docusate Sodium (Colace 250mg Capsule) 250 - 500 mg PO DAILY [facility] Last Admin: 08/05/18 09:32 Dose: 250 mg Guaifenesin (Mucinex) 600 mg PO BID [facility] Last Admin: 08/05/18 08:36 Dose: 600 mg Sodium Chloride (Normal Saline 0.9%) 500 mls @ 0 mls/hr IV Q24H PRN PRN Reason: TKO RATE Last Infusion: 08/02/18 07:49 Dose: Infused Ceftriaxone Sodium 2 gm/ (Sodium Chloride) 100 mls @ 200 mls/hr IV DAILY [facility] Last Infusion: 08/05/18 09:28 Dose: Infused Ketoconazole (Nizoral 2% Cream) 1 applic TOP BID [facility] Last Admin: 08/05/18 08:47 Dose: 1 applic Nicotine (Nicoderm) 1 patch TOP DAILY [facility] Last Admin: 08/05/18 08:36 Dose: 1 patch Pantoprazole Sodium (Protonix) 40 mg IVP QDAC [facility] Last Admin: 08/05/18 06:40 Dose: 40 mg Multivit/Folic Acid/Iron (Trinatal Rx 1) 1 tab PO DAILYWM [facility] Last Admin: 08/05/18 08:36 Dose: 1 tab Prochlorperazine Edisylate (Compazine Inj) 10 mg IVP Q6HR PRN PRN Reason: Nausea / Vomiting Senna (Senokot) 8.6 - 17.2 mg PO DAILY [facility] Last Admin: 08/05/18 09:32 Dose: 8.6 mg Sodium Chloride (Normal Saline Flush 0.9%) 10 ml IVP 0100,0900,1700 [facility] Last Admin: 08/05/18 08:48 Dose: 10 ml Sodium Chloride (Normal Saline Flush 0.9%) 10 ml IVP PRN PRN PRN Reason: NEEDED PER PROVIDER ORDERS Last Admin: 08/02/18 07:03 Dose: 10 ml Multivitamin [Theragran] 1 tab PO DAILY 07/28/18 Objective - Vital Signs/Intake & Output Reviewed Vital Signs: Yes Vital Signs: Vital Signs x48h Temp Pulse Resp BP Pulse Ox 08/05/18 08:53 36.5 C 94 13 98/73 94 Intake & Output: Intake & Output 08/02/18 08/03/18 08/04/18 08/05/18 23:59 23:59 23:59 23:59 Intake Total 2765.2 3221.450 1865.417 400 Output Total 3835 2499 2370 750 Balance -1069.8 722.450 -504.583 -350 - Objective General Appearance: positive: Alert, Mild distress Eyes Bilateral: positive: PERRL, EOMI ENT: positive: Other (Seborrheic rash on cheeks revealed by his shaving office of his mane yesterday. Started on ketoconazole cream yesterday.) Neck: positive: No JVD. negative: Stiff neck, Carotid bruit Respiratory: positive: Chest non-tender, Rhonchi (Much improved from the day before yesterday). negative: Wheezes, Rales Cardiovascular: positive: Regular rate & rhythm, Systolic murmur. negative: Gallop/S4, Friction rub Abdomen: positive: Non-tender, No organomegaly, Nml bowel sounds, No distention Skin: positive: Warm, Dry Extremities: positive: Full ROM, No pedal edema Neurologic/Psychiatric: positive: Oriented x3, Motor nml (Except coordination is off.), Sensation nml. negative: CN's nml (2-12) (May have vocal cord damage according to his exam. Will need ENT follow-up in the outpatient setting) - Lab Results Fish Bones: 07/31/18 05:01 08/04/18 04:50 Other Labs: Lab Results x24hrs 08/05/18 Range/Units 04:30 Ammonia 19.4 (7-35) umol/L ABX Reporting Has patient been on IV antibiotics over the past 48 hours?: Yes Assessment/Plan - Problem List (1) DTs (delirium tremens) Impression: With severe agitation. He head butted the senior network security engineer. Needed four-point restraints, Haldol, benzodiazepines. Was placed in safe environment with intubation, sedation for 72 hours. Needed Haldol once when we started weaning him because so agitated. Extubated 08/02. Has copious secretions. Not following commands well. Confused. Disoriented. But stable O2 requirement. No struggle to breath. He has needed small doses of ativan 08/02 and 08/03. His mom has been in the room with him and he is more cooperative. He is shaky, and needs prompting when physical therapy works with him. But his endurance is slowly improving. Most of his responses are appropriate. But I wonder if he experienced any type of anoxia. Or if this is just residual from alcohol withdrawal seizure. Plan: Stop CIWA protocol. Transfer from ICU status to Med Surg status 08/04. PT has been working with him since 08.03 To continue therapy in a rehab setting. I have cleared him for transfer today and we will be getting auth from his insurance before he can go to either [facility] or other SNF in [facility]. (2) Alcohol withdrawal seizure Impression: Once only so far. On day of admission. He has a previous history of having alcohol withdrawal seizures in the past. He had another one that was what prompted this admission. He has not had any further seizures during the stay. Seizure medications beyond benzodiazepines, specifically Valium, are not warranted at this time. Qualifiers: Complication of substance-induced condition: with unspecified complication Qualified Code(s): F10.239 - Alcohol dependence with withdrawal, unspecified; R56.9 - Unspecified convulsions (3) Alcohol abuse Impression: He received a banana bag. Appropriate multivitamin supplementation. Now just on po vitamins, no IV bags. (4) Fever Impression: Resolved. Fever can be part of delirium tremens. 2 temperature spikes to 38.3 on 08/02. White cell count is normal. Chest x-ray is normal. He did have a Teran in.Source could have been from prostate trauma from teran or bronchitis bc of c opious, copious secretions. Start empiric abx for ?bronchitis 0n 08/03 and teran out 08/04 Rocephin Day #3. Qualifiers: Fever type: due to other condition Qualified Code(s): R50.81 - Fever presenting with conditions classified elsewhere (5) Nutrition and vitamins. Started vitamin daily. Already had bannana bag on admit. Started on pureed diet and advanced to regular diet 08/03. IV stopped 08/04. (6) Seborrhea of face Ketoconazole cream bid. (7) Hoarseness and needing to whisper ENT followup in outpatient setting.
[2018-08-06] MEDS: PANTOPRAZOLE 40 MG VIAL IVP SCH (06:10)
[2018-08-06] MEDS: CARBOXYMETHYLCELLULOSE OPHTH DROPS EACHEYE SCH (06:10)
--- NOTE | 2018-08-06 07:13 | Discharge Plan ---
"Discharge Plan for SNF / [facility] - Discharge Plan And Transition Orders Disposition: 03 SNF DC/Xfer Condition: Good Allergies and Adverse Reactions: Allergies Allergy/AdvReac Type Severity Reaction Status Date / Time No Known Drug Allergies Allergy Verified 07/27/18 19:47 - SNF / [facility] Transition Orders Discharge Diagnosis: 1. Delirium tremens 2. Alcohol withdrawal seizure x1 3. Alcohol abuse 4. Fever resolved 5. Malnutrition 6. Seborrhea of face 7. Hoarseness, probable vocal cord damage, will need to see ENT Medicare Certification Statement: I certify that [facility] assisted care is medically necessary on a continuing basis for any of the conditions for which she/he is receiving care during hospitalization. Notify PCP of admission and forward orders to primary provider for signature. Weight on admission and: Monthly Call PCP immediately if weight increases by: 2.2 kg Other Notification Orders: Call PCP immediately if patient develops dyspnea, chest pain/tightness or edema. Additional Bowel Program Orders: If no BM after 2 days, nurse may give M.O.M. 30ml PO PRN and/or ducolax Supp 1 [place] and/or HARRIETT 250mg P.O., and/or senna 1-2 tabs PO. On day 3 nurse may give repeat above order until residents constipation is resolved. Annual Influenza Vaccine (between Jun 30 and January 27): Yes Two-step PPD per [facility] [id number] or approved exception documents: Yes Medication Orders: PLEASE REFER TO THE DISCHARGE MEDICATION LIST. Insulin Orders?: No - Medications New Prescriptions: Amox/Clav 500/125 [Augmentin] 1 each PO Q12H #8 tablet Ketoconazole 15 gm TP BID #30 cream..g. 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 Unfortunately he also has alcohol abuse issues. He has decided to stop drinking and was tapering himself off alcohol and then had stopped alcohol 3 days prior to admission. Unfortunately he went into delirium tremens after suffering a seizure. He has been in the hospital with IV fluids, banana bag, nutritional support, and physical therapy. He is now stable. His main complication of hospitalization is probable vocal cord trauma after intubation it his voice is quite hoarse. He will need to see ENT in follow-up. He also has developed a flare of his seborrhea on his face and he is now on ketoconazole. It is anticipated he will need rehab to improve his strength and to get him back to independent status for him to return to live in his own home."
[2018-08-06 07:26] VITALS: BP 99/73
[2018-08-06] MEDS: NICOTINE 21 MG PATCH TOP SCH (08:28)
[2018-08-06] MEDS: PRENATAL VITAMIN TABLET PO SCH (08:28)
[2018-08-06] MEDS: guaiFENesin 600 MG TABLET PO SCH (08:28)
[2018-08-06] MEDS: DOCUSATE SODIUM 250 MG CAPSULE PO SCH (08:28)
[2018-08-06] MEDS: SENNA 8.6 MG TABLET PO SCH (08:29)
[2018-08-06] MEDS: KETOCONAZOLE 2% CREAM 15 GM TUBE TOP SCH (09:09)
[2018-08-06] MEDS: cefTRIAXone 2 GM in SODIUM CHLORIDE 0.9% MINIBAG 100 ML IV SCH (09:10)
[2018-08-06] MEDS: SODIUM CHLORIDE FLUSH 0.9% 10 ML SYRINGE IVP SCH (09:14)
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
== END 2018-08-06 12:30 | disposition home or self-care (01) | DRG 897 ==
LOC: EDUNIT# → ED 19:27 → UNDOADMIN 22:45 → MS2 22:45 → ICU 07-29 22:08 → MS2 07-29 22:08 → ICU 07-29 22:14 → UNDOADMIN 08-04 10:46 → ICU 08-04 10:46 → MS2 08-04 10:46 → UNDODISIN 08-06 12:30
PROVIDERS: ADMIT Specialist; ATTEND Specialist
PROC: 0BH17EZ Insertion of Endotracheal Airway into Trachea, Via Natural or Artificial Opening (ICD-10-PCS; principal; 2018-07-30)
PROC: 5A1945Z Respiratory Ventilation, 24-96 Consecutive Hours (ICD-10-PCS; 2018-07-30)
DX: F10.231 Alcohol dependence with withdrawal delirium (principal); E46 Unspecified protein-calorie malnutrition; T51.0X1A Toxic effect of ethanol, accidental (unintentional), initial encounter; F10.259 Alcohol dependence with alcohol-induced psychotic disorder, unspecified; R56.9 Unspecified convulsions; R49.0 Dysphonia; S19.9XXA Unspecified injury of neck, initial encounter; Y82.8 Other medical devices associated with adverse incidents; R50.81 Fever presenting with conditions classified elsewhere; L21.9 Seborrheic dermatitis, unspecified; F17.210 Nicotine dependence, cigarettes, uncomplicated; K14.6 Glossodynia; S01.552A Open bite of oral cavity, initial encounter; E83.42 Hypomagnesemia; Z78.1 Physical restraint status; R45.6 Violent behavior; Z68.26 Body mass index [BMI] 26.0-26.9, adult; Y92.230 Patient room in hospital as the place of occurrence of the external cause
CPT/HCPCS: 36415; 36600; 71045; 80048; 80053; 80061; 80306; 80307; 80320; 80329; 81001; 81003; 82040; 82140; 82310; 82330; 82803; 83690; 83721; 83735; 84100; 85025; 85610; 85730; 87086; 87150; 93005; 94002; 94003; 94640; 96361; 96374; 96376; 99284; 99285

== ENCOUNTER 2018-09-05 10:08 | Outpatient (CLI) | payer MEDICAID ==
[2018-09-05 17:45] LABS: BASOPHILS # (AUTO) 0.1 10^3/uL (0.0-0.1); BASOPHILS % (AUTO) 1.1 %; EOSINOPHILS # (AUTO) 0.8 10^3/uL (0.0-0.7); EOSINOPHILS % (AUTO) 11.9 %; LYMPHOCYTES # (AUTO) 2.6 10^3/uL (1.5-3.5); LYMPHOCYTES % (AUTO) 38.1 %; MEAN CORPUSCULAR HEMOGLOBIN 33.7 pg (27.0-31.0); MEAN CORPUSCULAR HGB CONC 33.6 g/dL (32.0-36.0); MEAN CORPUSCULAR VOLUME 100.6 fL (80.0-94.0); MEAN PLATELET VOLUME 8.8 fL (7.4-11.4); MONOCYTES # (AUTO) 0.9 10^3/uL (0.0-1.0); MONOCYTES % (AUTO) 12.9 %; NEUTROPHILS # (AUTO) 2.5 10^3/uL (1.5-6.6); PLT - PLATELET COUNT 222 10^3/uL (130-450); RED BLOOD COUNT 4.45 10^6/uL (4.70-6.10); RED CELL DISTRIBUTION WIDTH 14.1 % (12.0-15.0); WHITE BLOOD COUNT 6.9 x10^3/uL (4.8-10.8)
[2018-09-05 17:58] LABS: ALBUMIN 4.5 g/dL (3.2-5.5); ALBUMIN/GLOBULIN RATIO 1.2 (1.0-2.2); BILIRUBIN,TOTAL 0.6 mg/dL (0.2-1.0); CALCIUM 9.7 mg/dL (8.5-10.3); CREATININE 0.8 mg/dL (0.6-1.2); TOTAL PROTEIN 8.3 g/dL (6.7-8.2)
== END 2018-09-05 10:09 | disposition home or self-care (01) ==
LOC: LAB.F 10:08
PROVIDERS: ATTEND Nurse Practitioner Family
DX: K76.0 Fatty (change of) liver, not elsewhere classified (principal); Z12.5 Encounter for screening for malignant neoplasm of prostate; D64.9 Anemia, unspecified
CPT/HCPCS: 36415; 80053; 84153; 85025

== ENCOUNTER 2018-09-17 12:58 | Outpatient (CLI) | payer MEDICAID | END 2018-09-17 12:59 | disposition home or self-care (01) | LOC: LAB.F 12:58 | PROVIDERS: ATTEND Nurse Practitioner Family | DX: D75.89 Other specified diseases of blood and blood-forming organs (principal) | CPT/HCPCS: 36415; 82607; 82746 ==

== ENCOUNTER 2018-11-26 12:24 | Outpatient (CLI) | payer MEDICAID | END 2018-11-26 23:59 | disposition home or self-care (01) | LOC: LAB.F 12:24 | PROVIDERS: ATTEND Nurse Practitioner Family | DX: Z12.11 Encounter for screening for malignant neoplasm of colon (principal) | CPT/HCPCS: 82270 ==

== ENCOUNTER 2020-06-12 12:44 | Outpatient (CLI) | payer MEDICAID ==
[2020-06-12 15:12] LABS: BASOPHILS # (AUTO) 0.1 10^3/uL (0.0-0.1); BASOPHILS % (AUTO) 0.7 %; EOSINOPHILS # (AUTO) 0.2 10^3/uL (0.0-0.7); EOSINOPHILS % (AUTO) 1.9 %; HGB - HEMOGLOBIN 11.8 g/dL (14.0-18.0); LYMPHOCYTES # (AUTO) 2.7 10^3/uL (1.5-3.5); LYMPHOCYTES % (AUTO) 29.4 %; MEAN CORPUSCULAR HEMOGLOBIN 32.8 pg (27.0-31.0); MEAN CORPUSCULAR HGB CONC 32.2 g/dL (32.0-36.0); MEAN CORPUSCULAR VOLUME 101.7 fL (80.0-94.0); MEAN PLATELET VOLUME 10.7 fL (7.4-11.4); MONOCYTES # (AUTO) 0.7 10^3/uL (0.0-1.0); MONOCYTES % (AUTO) 8.1 %; NEUTROPHILS # (AUTO) 5.3 10^3/uL (1.5-6.6); NEUTROPHILS % (AUTO) 59.3 %; PLT - PLATELET COUNT 245 10^3/uL (130-450); RED CELL DISTRIBUTION WIDTH 12.5 % (12.0-15.0)
[2020-06-12 15:51] LABS: ALBUMIN 4.3 g/dL (3.2-5.5); ALBUMIN/GLOBULIN RATIO 1.2 (1.0-2.2); ALKALINE PHOSPHATASE 69 IU/L (42-121); ALT ALANINE AMINOTRANSFERASE 20 IU/L (10-60); AST ASPARTATE AMINOTRANSFERASE 27 IU/L (10-42); BILIRUBIN,TOTAL 0.8 mg/dL (0.2-1.0); BUN - BLOOD UREA NITROGEN 12 mg/dL (6-20); CALCIUM 9.8 mg/dL (8.5-10.3); CARBON DIOXIDE - CO2 25 mmol/L (21-32); CHLORIDE 102 mmol/L (101-111); CHOL/HDL RATIO 3.2 (<5.0); CHOLESTEROL 168 mg/dL; CREATININE 0.9 mg/dL (0.6-1.2); GLUCOSE 102 mg/dL (70-100); HDL CHOLESTEROL 52 mg/dL; LDL CHOLESTEROL,CALCULATED 104 mg/dL; SODIUM 137 mmol/L (135-145); TOTAL PROTEIN 7.8 g/dL (6.7-8.2); VLDL CHOLESTEROL 12 mg/dL
[2020-06-12 16:05] LABS: HB2 TOTAL 12.5 g/dL; HEMOGLOBIN A1C 0.48 g/dL; HEMOGLOBIN A1C % 5.7 % (4.6-6.2)
== END 2020-06-12 12:45 | disposition home or self-care (01) ==
LOC: LAB.S 12:44
PROVIDERS: ATTEND Physician Assistant
DX: E11.9 Type 2 diabetes mellitus without complications (principal); R30.0 Dysuria; D64.9 Anemia, unspecified; Z87.898 Personal history of other specified conditions
CPT/HCPCS: 36415; 80050; 80061; 83036; 83721; 84153

== ENCOUNTER 2020-06-15 13:59 | Outpatient (CLI) | payer MEDICAID ==
[2020-06-15 20:29] LABS: FERRITIN 299.1 ng/mL (23.9-336.2)
== END 2020-06-15 14:00 | disposition home or self-care (01) ==
LOC: LAB.S 13:59
PROVIDERS: ATTEND Physician Assistant
DX: E11.9 Type 2 diabetes mellitus without complications (principal); R30.0 Dysuria; D64.9 Anemia, unspecified; F10.11 Alcohol abuse, in remission
CPT/HCPCS: 36415; 82607; 82728; 82746

== ENCOUNTER 2020-10-19 12:55 | Outpatient (CLI) | payer MEDICAID | END 2020-10-19 12:56 | disposition critical access hospital (66) | LOC: EMS 12:55 | PROVIDERS: ATTEND Surgery | DX: R25.1 Tremor, unspecified (principal); R26.2 Difficulty in walking, not elsewhere classified | CPT/HCPCS: A0425; A0429; A0999 ==

== ENCOUNTER 2020-10-19 13:24 | Emergency (ER) | payer MEDICAID ==
[2020-10-19] MEDS ORDERED: diazePAM 5 MG TABLET PO STA (13:49)
--- NOTE | 2020-10-19 13:50 | ED Physician Documentation ---
PD HPI MHE - Stated complaint Stated Complaint: ETOH - Chief complaint Chief Complaint: MHE - History obtained from History obtained from: Patient - Additional information Additional information: 55-year-old gentleman with problems including homelessness and alcoholism. Has been drinking steadily for the last month and a half all day every day. Last drink was about 9 PM last night. Would like some help with detoxification. He is feeling shaky. No hallucinations. Review of Systems Ten Systems: 10 systems reviewed and negative Constitutional: reports: Reviewed and negative Ears: reports: Reviewed and negative Nose: reports: Reviewed and negative Throat: reports: Reviewed and negative PD PAST MEDICAL HISTORY - Past Medical History Cardiovascular: None Respiratory: None Neuro: Headaches Endocrine/Autoimmune: None GI: None : None HEENT: Other Psych: None Musculoskeletal: None Derm: Other - Past Surgical History Past Surgical History: Yes - Present Medications Home Medications: Ambulatory Orders Medication Instructions Recorded Confirmed diazePAM [Valium] 1 tab PO TID #9 tablet 10/19/20 - Allergies Allergies/Adverse Reactions: Allergies Allergy/AdvReac Type Severity Reaction Status Date / Time No Known Drug Allergies Allergy Verified 07/27/18 19:47 - Social History Does the pt smoke?: No Smoking Status: Heavy tobacco smoker Does the pt drink ETOH?: Yes Does the pt have substance abuse?: No - Immunizations Immunizations are current?: Yes - POLST Patient has POLST: No POLST Status: Full Code PD ED PE NORMAL - Vitals Vital signs reviewed: Yes - General General: Alert and oriented X 3, No acute distress, Other (Mild tremulousness, otherwise no overt distress) - HEENT HEENT: PERRL - Neck Neck: Supple, no meningeal sign, No bony TTP - Cardiac Cardiac: RRR, No murmur - Respiratory Respiratory: No respiratory distress, Clear bilaterally - Abdomen Abdomen: Non tender - Back Back: No CVA TTP, No spinal TTP - Derm Derm: Normal color, Warm and dry - Neuro Neuro: Alert and oriented X 3, Normal speech Results - Vitals Vitals: Vital Signs - 24 hr 10/19/20 10/19/20 13:31 19:04 Temperature 36.7 C 37.0 C Heart Rate 72 112 H Respiratory 19 16 Rate Blood Pressure 132/86 H 140/84 H O2 Saturation 99 93 Oxygen O2 Source [With Activity] Room air O2 Source [Without Activity] Room air O2 Source Room air - Labs Labs: Laboratory Tests 10/19/20 10/19/20 10/19/20 16:22 16:22 16:22 WBC 8.0 RBC 4.20 L Hgb 13.9 L Hct 40.8 L MCV 97.1 H MCH 33.1 H MCHC 34.1 RDW 13.5 Plt Count 112 L MPV 10.2 Neut # (Auto) 5.2 Lymph # (Auto) 1.9 [place] # (Auto) 0.7 Eos # (Auto) 0.0 Baso # (Auto) 0.1 Absolute Nucleated RBC 0.00 Nucleated RBC % 0.0 Sodium 139 Potassium 3.9 Chloride 96 L Carbon Dioxide 30 Anion Gap 13.0 BUN 9 Creatinine 0.6 Estimated GFR (MDRD) 140 Glucose 124 H Calcium 8.6 Total Bilirubin 0.6 AST 101 H ALT 48 Alkaline Phosphatase 125 H Total Protein 8.1 Albumin 3.9 Globulin 4.2 Albumin/Globulin Ratio 0.9 L Lipase 47 TSH 2.68 Urine Color Urine Clarity Urine pH Ur Specific [place] Urine Protein Urine Glucose (UA) Urine Ketones Urine Occult Blood Urine Nitrite Urine Bilirubin Urine Urobilinogen Ur Leukocyte Esterase Urine RBC Urine WBC Ur Squamous Epith Cells Amorphous Sediment Urine Bacteria Ur Microscopic Review Urine Culture Comments Nasal Adenovirus (PCR) Nasal B. parapertussis DNA (PCR) Nasal Coronavir 229E PCR Nasal Coronavir HKU1 PCR Nasal Coronavir NL63 PCR Nasal Coronavir OC43 PCR Nasal Enterovir/Rhinovir PCR Nasal Influenza B PCR Nasal Influenza A PCR Nasal Parainfluen 1 PCR Nasal Parainfluen 2 PCR Nasal Parainfluen 3 PCR Nasal Parainfluen 4 PCR Nasal RSV (PCR) Nasal B.pertussis DNA PCR Nasal C.pneumoniae (PCR) Alexandre Human Metapneumo PCR Nasal M.pneumoniae (PCR) Nasal SARS-CoV-2 (PCR) Salicylates < 6.0 Urine Opiates Screen Ur Oxycodone Screen Urine Methadone Screen Ur Propoxyphene Screen Acetaminophen < 10 L Ur Barbiturates Screen Ur Tricyclics Screen Ur Phencyclidine Scrn Ur Amphetamine Screen U Methamphetamines Scrn U Benzodiazepines Scrn Urine Cocaine Screen U Cannabinoids Screen Ethyl Alcohol 254.1 10/19/20 10/19/20 17:15 17:43 WBC RBC Hgb Hct MCV MCH MCHC RDW Plt Count MPV Neut # (Auto) Lymph # (Auto) [place] # (Auto) Eos # (Auto) Baso # (Auto) Absolute Nucleated RBC Nucleated RBC % Sodium Potassium Chloride Carbon Dioxide Anion Gap BUN Creatinine Estimated GFR (MDRD) Glucose Calcium Total Bilirubin AST ALT Alkaline Phosphatase Total Protein Albumin Globulin Albumin/Globulin Ratio Lipase TSH Urine Color DARK YELLOW Urine Clarity CLOUDY Urine pH 5.5 Ur Specific [place] >=1.030 H Urine Protein >=300 H Urine Glucose (UA) NEGATIVE Urine Ketones NEGATIVE Urine Occult Blood MODERATE H Urine Nitrite POSITIVE H Urine Bilirubin NEGATIVE Urine Urobilinogen 1 (NORMAL) Ur Leukocyte Esterase NEGATIVE Urine RBC 6-10 H Urine WBC 0-3 Ur Squamous Epith Cells FEW Squamous Amorphous Sediment Marked Urine Bacteria Rare Ur Microscopic Review INDICATED Urine Culture Comments INDICATED Nasal Adenovirus (PCR) NOT DETECTED Nasal B. parapertussis DNA (PCR) NOT DETECTED Nasal Coronavir 229E PCR NOT DETECTED Nasal Coronavir HKU1 PCR NOT DETECTED Nasal Coronavir NL63 PCR NOT DETECTED Nasal Coronavir OC43 PCR NOT DETECTED Nasal Enterovir/Rhinovir PCR NOT DETECTED Nasal Influenza B PCR NOT DETECTED Nasal Influenza A PCR NOT DETECTED Nasal Parainfluen 1 PCR NOT DETECTED Nasal Parainfluen 2 PCR NOT DETECTED Nasal Parainfluen 3 PCR NOT DETECTED Nasal Parainfluen 4 PCR NOT DETECTED Nasal RSV (PCR) NOT DETECTED Nasal B.pertussis DNA PCR NOT DETECTED Nasal C.pneumoniae (PCR) NOT DETECTED Alexandre Human Metapneumo PCR NOT DETECTED Nasal M.pneumoniae (PCR) NOT DETECTED Nasal SARS-CoV-2 (PCR) NOT DETECTED Salicylates Urine Opiates Screen NEGATIVE Ur Oxycodone Screen NEGATIVE Urine Methadone Screen NEGATIVE Ur Propoxyphene Screen NEGATIVE Acetaminophen Ur Barbiturates Screen NEGATIVE Ur Tricyclics Screen NEGATIVE Ur Phencyclidine Scrn NEGATIVE Ur Amphetamine Screen NEGATIVE U Methamphetamines Scrn NEGATIVE U Benzodiazepines Scrn POSITIVE H Urine Cocaine Screen NEGATIVE U Cannabinoids Screen NEGATIVE Ethyl Alcohol PD MEDICAL DECISION MAKING - ED course ED course: Seen by social work and arranged for a bed at [facility], subsequently he decided he could not go tonight and was given resources on how to arrange for detox tomorrow. He was given a Valium here, but subsequent labs showed him to still be intoxicated so I am not sure I would trust him with a prescription for Valium. Wrote him for a prescription for Valium but stated on the prescription that only crisis center staff could fill it. Departure - Departure Disposition: 01 Home, Self Care Clinical Impression: Alcohol abuse, Alcohol intoxication Condition: Good Record reviewed to determine appropriate education?: Yes Instructions: ED Alcohol Intoxication Prescriptions: diazePAM [Valium] 1 tab PO TID #9 tablet Comments: Go to The crisis center tomorrow. You did receive a Valium here. I am writing a prescription for Valium but only to be filled by crisis center staff since you are still intoxicated. Discharge Date/Time: 10/19/20 19:07
[2020-10-19] MEDS ORDERED: THIAMINE 100 MG TABLET PO STA (14:08)
[2020-10-19 16:32] LABS: BASOPHILS # (AUTO) 0.1 10^3/uL (0.0-0.1); BASOPHILS % (AUTO) 0.9 %; EOSINOPHILS % (AUTO) 0.5 %; HGB - HEMOGLOBIN 13.9 g/dL (14.0-18.0); LYMPHOCYTES # (AUTO) 1.9 10^3/uL (1.5-3.5); MEAN CORPUSCULAR HEMOGLOBIN 33.1 pg (27.0-31.0); MEAN CORPUSCULAR HGB CONC 34.1 g/dL (32.0-36.0); MEAN CORPUSCULAR VOLUME 97.1 fL (80.0-94.0); MEAN PLATELET VOLUME 10.2 fL (7.4-11.4); MONOCYTES # (AUTO) 0.7 10^3/uL (0.0-1.0); MONOCYTES % (AUTO) 8.8 %; NEUTROPHILS # (AUTO) 5.2 10^3/uL (1.5-6.6); PLT - PLATELET COUNT 112 10^3/uL (130-450); RED CELL DISTRIBUTION WIDTH 13.5 % (12.0-15.0)
[2020-10-19 16:43] LABS: ACETAMINOPHEN < 10 ug/mL (10-30); ALBUMIN 3.9 g/dL (3.2-5.5); ALBUMIN/GLOBULIN RATIO 0.9 (1.0-2.2); ALKALINE PHOSPHATASE 125 IU/L (42-121); ALT ALANINE AMINOTRANSFERASE 48 IU/L (10-60); AST ASPARTATE AMINOTRANSFERASE 101 IU/L (10-42); BILIRUBIN,TOTAL 0.6 mg/dL (0.2-1.0); BUN - BLOOD UREA NITROGEN 9 mg/dL (6-20); CALCIUM 8.6 mg/dL (8.5-10.3); CARBON DIOXIDE - CO2 30 mmol/L (21-32); CHLORIDE 96 mmol/L (101-111); CREATININE 0.6 mg/dL (0.6-1.2); GLUCOSE 124 mg/dL (70-100); LIPASE 47 U/L (22-51); SALICYLATE < 6.0 mg/dL; SODIUM 139 mmol/L (135-145); TOTAL PROTEIN 8.1 g/dL (6.7-8.2)
[2020-10-19 17:55] LABS: MUDS CUTOFF CONCENTRATIONS CUTOFF CONC BELOW:
[2020-10-19 17:59] LABS: GLUCOSE, URINE (UA) NEGATIVE (NEGATIVE); KETONES,URINE (UA) NEGATIVE (NEGATIVE); LEUKOCYTE ESTERASE, URINE NEGATIVE (NEGATIVE); NITRITE,URINE POSITIVE (NEGATIVE); OCCULT BLOOD,URINE MODERATE (NEGATIVE); PH,URINE 5.5 PH (5.0-7.5); PROTEIN,URINE >=300 mg/dL (NEGATIVE); UROBILINOGEN,URINE 1 (NORMAL) E.U./dL (NORMAL)
[2020-10-19 18:00] LABS: CLARITY,URINE CLOUDY (CLEAR)
[2020-10-19 18:02] LABS: BILIRUBIN,URINE NEGATIVE (NEGATIVE); ICTOTEST,URINE NEGATIVE
[2020-10-19 18:11] LABS: AMPHETAMINE SCREEN,URINE NEGATIVE (NEGATIVE); BENZODIAZEPINES SCREEN, URINE POSITIVE (NEGATIVE); COCAINE SCREEN URINE NEGATIVE (NEGATIVE); METHADONE SCREEN, URINE NEGATIVE (NEGATIVE); METHAMPHETAMINES SCREEN, URINE NEGATIVE (NEGATIVE); OPIATE SCREEN, URINE NEGATIVE (NEGATIVE); OXYCODONE SCREEN, URINE NEGATIVE (NEGATIVE); PROPOXYPHENE SCREEN, URINE NEGATIVE (NEGATIVE); TRICYCLIC ANTIDEPRESSANT,URINE NEGATIVE (NEGATIVE)
[2020-10-19 18:12] LABS: AMORPHOUS SEDIMENT,UR Marked /LPF; BACTERIA,URINE Rare /HPF (None Seen); SQUAMOUS EPITHELIAL CELL,UR FEW Squamous (<= Few)
[2020-10-19 18:27] LABS: C. PNEUMONIAE- RESP PCR PANEL NOT DETECTED
[2020-10-19 19:07] VITALS: BP 140/84
== END 2020-10-19 19:07 | disposition home or self-care (01) ==
LOC: ED 13:24
DX: F10.229 Alcohol dependence with intoxication, unspecified (principal); Z59.0 Homelessness; Z20.828 Contact with and (suspected) exposure to other viral communicable diseases
CPT/HCPCS: 0202U; 36415; 80053; 80306; 80307; 80320; 80329; 81001; 83690; 84443; 85025; 87086; 99283; A9270; 81003

== ENCOUNTER 2020-10-20 09:46 | Emergency (ER) | payer MEDICAID ==
[2020-10-20] MEDS ORDERED: DEXAMETHASONE 10 MG/ML VIAL IVP STA (10:15)
[2020-10-20] MEDS ORDERED: FOLIC ACID INJ 1 MG, THIAMINE INJ 100 MG, MAGNESIUM SULFATE 2 GM, MULTIVITAMIN 10 ML in... IV STA ×10 (10:15→11:28)
[2020-10-20] MEDS ORDERED: LORazepam 2 MG/ML VIAL IVP STA (10:15)
--- NOTE | 2020-10-20 10:17 | ED Physician Documentation ---
History of Present Illness - Stated complaint Stated Complaint: MEDICAL CLEARANCE - Chief complaint Chief Complaint: General - History obtained from History obtained from: Patient - History of Present Illness Timing: Yesterday - Additonal information Additional information: 55-year-old homeless male has decided to stop drinking and he came to the emergency department yesterday with a blood alcohol of over 250 and works to getting into a detox facility and arrangements were made and he felt that he was not able to go last night and slept in his truck. When he went to go to the detox center today they told him he had to have a medical clearance statement from his paperwork as well as a prescription for Ativan instead of Valium. The patient returns to the emergency department today stating that after sleeping in his truck last night he is barely able to walk this morning and indicates that he did not have anything to drink last night feels poorly but is not otherwise ill. Review of Systems Constitutional: denies: Fever, Chills, Myalgias Ears: denies: Ear pain Nose: denies: Congestion Throat: denies: Sore throat Cardiac: denies: Chest pain / pressure, Palpitations Respiratory: reports: Cough (similar to always). denies: Dyspnea GI: denies: Abdominal Pain, Nausea, Vomiting, Constipation, Diarrhea : denies: Dysuria, Frequency Skin: denies: Rash Musculoskeletal: denies: Neck pain, Back pain, Extremity pain Neurologic: denies: Generalized weakness, Focal weakness, Numbness PD PAST MEDICAL HISTORY - Past Medical History Past Medical History: Yes Cardiovascular: None Respiratory: None Neuro: Headaches Endocrine/Autoimmune: None GI: None : None HEENT: Other Psych: None Musculoskeletal: None Derm: Other - Past Surgical History Past Surgical History: Yes - Present Medications Home Medications: Ambulatory Orders Medication Instructions Recorded Confirmed diazePAM [Valium] 1 tab PO TID #9 tablet 10/19/20 Lorazepam [Ativan] 2 mg PO Q4HR PRN #9 tablet 10/20/20 - Allergies Allergies/Adverse Reactions: Allergies Allergy/AdvReac Type Severity Reaction Status Date / Time No Known Drug Allergies Allergy Verified 10/20/20 09:53 - Social History Does the pt smoke?: No Smoking Status: Never smoker Does the pt drink ETOH?: Yes Does the pt have substance abuse?: No - Immunizations Immunizations are current?: Yes - POLST Patient has POLST: No POLST Status: Full Code PD ED PE NORMAL - Vitals Vital signs reviewed: Yes (tachy and hyertensive) - General General: Alert and oriented X 3, Well developed/nourished, Other (Disheveled 55-year-old homeless male smells of urine is wearing a mask and appears shaky consistent with withdrawal) - HEENT HEENT: Atraumatic, PERRL, EOMI, Other (blood shot eyes) - Neck Neck: Supple, no meningeal sign, No bony TTP - Cardiac Cardiac: No murmur, Other (tachy to 100) - Respiratory Respiratory: No respiratory distress, Clear bilaterally - Abdomen Abdomen: Soft, Non tender - Back Back: No CVA TTP, No spinal TTP - Derm Derm: Normal color, Warm and dry, No rash - Extremities Extremities: No deformity, No edema - Neuro Neuro: Alert and oriented X 3, cartography technician 2-12 intact, No motor deficit, No sensory deficit, Normal speech Eye Opening: Spontaneous Motor: Obeys Commands Verbal: Oriented GCS Score: 15 - Psych Psych: Normal mood, Normal affect Results - Vitals Vitals: Vital Signs - 24 hr 10/20/20 10/20/20 09:51 10:46 Temperature 36.8 C Heart Rate 103 H 82 Respiratory 20 18 Rate Blood Pressure 153/90 H 156/95 H O2 Saturation 95 94 Oxygen O2 Source [With Activity] Room air O2 Source [Without Activity] Room air O2 Source Room air - Labs Labs: Laboratory Tests 10/20/20 10/20/20 10:33 10:33 WBC 6.9 RBC 4.28 L Hgb 14.3 Hct 42.1 MCV 98.4 H MCH 33.4 H MCHC 34.0 RDW 13.6 Plt Count 103 L MPV 10.8 Neut # (Auto) 4.6 Lymph # (Auto) 1.2 L [place] # (Auto) 0.9 Eos # (Auto) 0.0 Baso # (Auto) 0.1 Absolute Nucleated RBC 0.00 Nucleated RBC % 0.0 Sodium 137 Potassium 4.3 Chloride 93 L Carbon Dioxide 30 Anion Gap 14.0 H BUN 13 Creatinine 0.7 Estimated GFR (MDRD) 117 Glucose 102 H Calcium 10.1 Total Bilirubin 1.0 AST 107 H ALT 46 Alkaline Phosphatase 149 H Total Protein 8.6 H Albumin 4.1 Globulin 4.5 H Albumin/Globulin Ratio 0.9 L Lipase 58 H Ethyl Alcohol < 5.0 PD MEDICAL DECISION MAKING - ED course Complexity details: reviewed old records, reviewed results, re-evaluated patient, considered differential, d/w patient ED course: 55-year-old homeless male detoxing from alcohol appears uncomfortable today and appears to be in withdrawal. An IV is begun he is administered a banana bag intravenously as well as 2 mg of Ativan and 10 mg of dexamethasone. Covid test negative yesterday. Much improved and medically cleared for detox. will provide a script for ativan 2mg tabs #9. Departure - Departure Disposition: Home, Self Care Clinical Impression: Alcohol withdrawal Qualifiers: Complication of substance-induced condition: with perceptual disturbance Q ualified Code(s): F10.232 - Alcohol dependence with withdrawal with perceptual disturbance Condition: Stable Instructions: ED Withdrawal Alcohol Follow-Up: MARTINA MARTINEZ PA-C [Primary Care Provider] - Prescriptions: Lorazepam [Ativan] 2 mg PO Q4HR PRN #9 tablet PRN Reason: withdrawal symptoms Comments: Today you are medically cleared for alcohol detoxification. There is medication you will need to assist you with the detoxification. Take this prescription to the detox center.
[2020-10-20 10:42] LABS: BASOPHILS # (AUTO) 0.1 10^3/uL (0.0-0.1); EOSINOPHILS % (AUTO) 0.4 %; HGB - HEMOGLOBIN 14.3 g/dL (14.0-18.0); LYMPHOCYTES # (AUTO) 1.2 10^3/uL (1.5-3.5); LYMPHOCYTES % (AUTO) 17.9 %; MEAN CORPUSCULAR HEMOGLOBIN 33.4 pg (27.0-31.0); MEAN CORPUSCULAR VOLUME 98.4 fL (80.0-94.0); MEAN PLATELET VOLUME 10.8 fL (7.4-11.4); MONOCYTES # (AUTO) 0.9 10^3/uL (0.0-1.0); MONOCYTES % (AUTO) 13.5 %; NEUTROPHILS # (AUTO) 4.6 10^3/uL (1.5-6.6); NEUTROPHILS % (AUTO) 66.5 %; PLT - PLATELET COUNT 103 10^3/uL (130-450); RED BLOOD COUNT 4.28 10^6/uL (4.70-6.10); RED CELL DISTRIBUTION WIDTH 13.6 % (12.0-15.0); WHITE BLOOD COUNT 6.9 x10^3/uL (4.8-10.8)
[2020-10-20 10:46] VITALS: BP 156/95
[2020-10-20 10:56] LABS: ALBUMIN 4.1 g/dL (3.2-5.5); ALBUMIN/GLOBULIN RATIO 0.9 (1.0-2.2); ALKALINE PHOSPHATASE 149 IU/L (42-121); ALT ALANINE AMINOTRANSFERASE 46 IU/L (10-60); AST ASPARTATE AMINOTRANSFERASE 107 IU/L (10-42); BUN - BLOOD UREA NITROGEN 13 mg/dL (6-20); CALCIUM 10.1 mg/dL (8.5-10.3); CARBON DIOXIDE - CO2 30 mmol/L (21-32); CHLORIDE 93 mmol/L (101-111); CREATININE 0.7 mg/dL (0.6-1.2); GLUCOSE 102 mg/dL (70-100); LIPASE 58 U/L (22-51); SODIUM 137 mmol/L (135-145); TOTAL PROTEIN 8.6 g/dL (6.7-8.2)
== END 2020-10-20 12:38 | disposition home or self-care (01) ==
LOC: ED 09:46
DX: Z02.2 Encounter for examination for admission to residential institution (principal); F10.232 Alcohol dependence with withdrawal with perceptual disturbance; Z59.0 Homelessness
CPT/HCPCS: 36415; 80053; 80320; 83690; 85025; 96365; 96375; 99283; 99284; J2060; J3411

== ENCOUNTER 2021-10-17 05:04 | Emergency (ER) | payer MEDICAID ==
[2021-10-17] MEDS ORDERED: OLANZapine ODT 5 MG TABLET TL ONE (05:31)
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
[2021-10-17 06:13] LABS: BASOPHILS # (AUTO) 0.1 10^3/uL (0.0-0.1); BASOPHILS % (AUTO) 1.3 %; EOSINOPHILS # (AUTO) 0.4 10^3/uL (0.0-0.7); EOSINOPHILS % (AUTO) 4.1 %; HCT - HEMATOCRIT 47.1 % (42.0-52.0); HGB - HEMOGLOBIN 15.7 g/dL (14.0-18.0); LYMPHOCYTES # (AUTO) 2.2 10^3/uL (1.5-3.5); LYMPHOCYTES % (AUTO) 24.9 %; MEAN CORPUSCULAR HEMOGLOBIN 33.1 pg (27.0-31.0); MEAN CORPUSCULAR HGB CONC 33.3 g/dL (32.0-36.0); MEAN CORPUSCULAR VOLUME 99.2 fL (80.0-94.0); MEAN PLATELET VOLUME 9.5 fL (7.4-11.4); MONOCYTES % (AUTO) 11.8 %; NEUTROPHILS # (AUTO) 4.9 10^3/uL (1.5-6.6); PLT - PLATELET COUNT 268 10^3/uL (130-450); RED BLOOD COUNT 4.75 10^6/uL (4.70-6.10); RED CELL DISTRIBUTION WIDTH 13.4 % (12.0-15.0); WHITE BLOOD COUNT 8.6 x10^3/uL (4.8-10.8)
[2021-10-17 06:21] LABS: ALBUMIN 4.7 g/dL (3.2-5.5); ALBUMIN/GLOBULIN RATIO 1.3 (1.0-2.2); ALKALINE PHOSPHATASE 99 IU/L (42-121); ALT ALANINE AMINOTRANSFERASE 24 IU/L (10-60); AST ASPARTATE AMINOTRANSFERASE 26 IU/L (10-42); BILIRUBIN,TOTAL 0.8 mg/dL (0.2-1.0); BUN - BLOOD UREA NITROGEN 15 mg/dL (6-20); CALCIUM 9.6 mg/dL (8.5-10.3); CARBON DIOXIDE - CO2 26 mmol/L (21-32); CHLORIDE 100 mmol/L (101-111); CK- CREATINE KINASE 162 IU/L (22-269); ETOH - ETHANOL < 5.0 mg/dL; GFR - MDRD 77 (>89); GLUCOSE 119 mg/dL (70-100); POTASSIUM 4.3 mmol/L (3.5-5.0); SODIUM 136 mmol/L (135-145); TOTAL PROTEIN 8.2 g/dL (6.7-8.2)
[2021-10-17 09:00] LABS: MUDS CUTOFF CONCENTRATIONS CUTOFF CONC BELOW:
[2021-10-17 09:19] LABS: AMPHETAMINE SCREEN,URINE POSITIVE (NEGATIVE); BARBITURATE SCREEN,UR NEGATIVE (NEGATIVE); BENZODIAZEPINES SCREEN, URINE NEGATIVE (NEGATIVE); COCAINE SCREEN URINE NEGATIVE (NEGATIVE); METHADONE SCREEN, URINE NEGATIVE (NEGATIVE); METHAMPHETAMINES SCREEN, URINE POSITIVE (NEGATIVE); OPIATE SCREEN, URINE NEGATIVE (NEGATIVE); OXYCODONE SCREEN, URINE NEGATIVE (NEGATIVE); PROPOXYPHENE SCREEN, URINE NEGATIVE (NEGATIVE); THC CANNABINOID SCREEN, URINE NEGATIVE (NEGATIVE); TRICYCLIC ANTIDEPRESSANT,URINE NEGATIVE (NEGATIVE)
[2021-10-17 14:11] LABS: GLUCOSE, URINE (UA) NEGATIVE (NEGATIVE); KETONES,URINE (UA) TRACE mg/dL (NEGATIVE); LEUKOCYTE ESTERASE, URINE NEGATIVE (NEGATIVE); NITRITE,URINE NEGATIVE (NEGATIVE); OCCULT BLOOD,URINE NEGATIVE (NEGATIVE); PH,URINE 5.5 PH (5.0-7.5); PROTEIN,URINE NEGATIVE (NEGATIVE); UROBILINOGEN,URINE 0.2 (NORMAL) E.U./dL (NORMAL)
[2021-10-17 14:19] LABS: BILIRUBIN,URINE NEGATIVE (NEGATIVE); CLARITY,URINE CLEAR (CLEAR); ICTOTEST,URINE NEGATIVE
[2021-10-17 14:58] LABS: B. PARAPERTUSSIS- RESP PCR PAN NOT DETECTED; B. PERTUSSIS- RESP PCR PANEL NOT DETECTED; C. PNEUMONIAE- RESP PCR PANEL NOT DETECTED; CORONAVIRUS 229E-RESP PCR NOT DETECTED; CORONAVIRUS HKU1-RESP PCR NOT DETECTED; CORONAVIRUS NL63-RESP PCR NOT DETECTED; CORONAVIRUS OC43-RESP PCR NOT DETECTED; HUMAN METAPNEUMOVIRUS NOT DETECTED; INFLUENZA A- RESP PCR PANEL NOT DETECTED; INFLUENZA B - RESP PCR PANEL NOT DETECTED; M. PNEUMONIAE- RESP PCR PANEL NOT DETECTED; PARAINFLUENZA VIRUS 1 NOT DETECTED; PARAINFLUENZA VIRUS 2 NOT DETECTED; PARAINFLUENZA VIRUS 3 NOT DETECTED; PARAINFLUENZA VIRUS 4 NOT DETECTED; RHINOVIRUS/ENTEROVIRUS NOT DETECTED; RSV- RESP PCR PANEL NOT DETECTED; SARS-CoV-2 -RESP PCR PANEL NOT DETECTED
[2021-10-17] MEDS ORDERED: ALBUTEROL NEB 2.5 MG/3 ML INH ONE (15:53)
[2021-10-18] MEDS ORDERED: LORazepam 1 MG TABLET PO STA (00:45)
--- NOTE | 2021-10-18 03:34 | ED Physician Documentation ---
ED Addendum - Addendum Addendum: Patient received as signout from off going physician, please see their documentation for further detail. Patient currently detained by [facility]. Monitored carefully throughout my shift. Was given single dose of Ativan for insomnia. Will be signing out to the oncoming physician, expected disposition is waste picker and transport at approximately 0800 hrs. 10/18/21 03:32
[2021-10-18 09:15] VITALS: BP 126/78
== END 2021-10-18 09:36 ==
LOC: ED 05:04
DX: F29 Unspecified psychosis not due to a substance or known physiological condition (principal); F15.10 Other stimulant abuse, uncomplicated; F10.10 Alcohol abuse, uncomplicated; G47.00 Insomnia, unspecified; R45.1 Restlessness and agitation; Z20.822 Contact with and (suspected) exposure to COVID-19
CPT/HCPCS: 0202U; 36415; 80050; 80306; 80320; 81003; 82550; 93005; 99281; 99285; A9270; J8499; 81001; 87086

== ENCOUNTER 2021-11-30 15:58 | Outpatient (CLI) | payer MEDICAID ==
--- NOTE | 2021-11-30 16:40 | XRAY Report ---
PROCEDURE: Shoulder 2 View BILAT INDICATIONS: PAIN BILATERAL SHOULDER TECHNIQUE: 2 views of the bilateral shoulders were acquired. COMPARISON: May 01, 2017 FINDINGS: BONES: Right: No acute, displaced fracture. The joint spaces are maintained. Left: No acute, displaced fracture. The joint spaces are maintained. SOFT TISSUES: No focal abnormality or appreciable pneumothorax. IMPRESSION: 1.No acute osseous abnormality. Reviewed by: Dashawn Blanchard MD on 11/30/2021 4:39 PM PST Approved by: Dashawn Blanchard MD on 11/30/2021 4:39 PM PST Station ID: [id number]
== END 2021-11-30 15:59 | disposition home or self-care (01) ==
LOC: DI.S 15:58
PROVIDERS: ATTEND Registered Nurse
DX: M25.512 Pain in left shoulder (principal); M25.511 Pain in right shoulder

== ENCOUNTER 2022-01-21 08:30 | Outpatient (CLI) | payer MEDICAID ==
--- NOTE | 2022-01-21 10:44 | XRAY Report ---
PROCEDURE: Shoulder 2 View BILAT INDICATIONS: BILAT SHOULDER PAIN TECHNIQUE: 2 views of each shoulder were acquired. COMPARISON: 11/30/2021 FINDINGS: Bones: No acute fractures or dislocations. No suspicious bony lesions. Visualized ribs appear inta ct. There are mild degenerative changes of the right glenohumeral joint. This is best appreciated on the axillary view. Joint spaces appear to be maintained bilaterally. Soft tissues: No suspicious soft tissue calcifications. IMPRESSION: Bilateral shoulder without acute fracture or malalignment. Mild right glenohumeral osteo arthrosis. Reviewed by: Shane Mallory MD on 01/21/2022 10:43 AM PDT Approved by: Shane Mallory MD on 01/21/2022 10:43 AM PDT Station ID: [id number]
== END 2022-01-21 23:59 | disposition home or self-care (01) ==
LOC: DI.WOS 08:30
PROVIDERS: ATTEND Orthopaedic Surgery
DX: M25.512 Pain in left shoulder (principal); M19.011 Primary osteoarthritis, right shoulder

== ENCOUNTER 2022-02-22 06:57 | Outpatient (CLI) | payer MEDICAID ==
--- NOTE | 2022-02-22 14:07 | MRI Report ---
PROCEDURE: Shoulder LT W/O INDICATIONS: ROTATOR CUFF TENDINITIS TECHNIQUE: Noncontrast oblique coronal T2 fast spin echo with fat saturation, oblique sagittal T1 spin echo and T2 fast spin echo with fat saturation, axial T1 spin echo and T2 fast spin echo with fat saturation t hrough the shoulder. COMPARISON: None. FINDINGS: Image quality: Excellent. Rotator cuff: Tendinosis and low-grade articular and bursal surface partial-thickness tear involving distal supraspinatus at its insertion on humeral head is seen extending to musculotendinous junction. Distal infraspinatus, and subscapularis tendinosis is seen. No full-thickness rotator cuff tendon ru pture. No rotator cuff muscle atrophy on sagittal images. Bones and bursae: No bone marrow contusions or fractures. Mild to moderate acromioclavicular joint o steoarthritic changes are seen with joint space narrowing, subchondral sclerosis and edema and downwa rd osteophyte formation depressing on musculotendinous junction of supraspinatus. The acromion demon strates conventional anatomy, without an os acromiale. No pathologic subacromial/subdeltoid bursal f luid is present. Capsule and soft tissues: There is subtle signal abnormality involving superior anterior labrum at 12 to 1:00 position concerning for subtle superior anterior labral tear. The long head of the biceps te ndon demonstrates normal location and morphology. The rotator interval appears normal, without fibro sis. The coracohumeral ligament is normal in thickness. IMPRESSION: 1. Tendinosis and low-grade articular and bursal surface partial-thickness tear involving distal supr aspinatus extending to musculotendinous junction. Distal infraspinatus and subscapularis tendinosis. No full-thickness rotator cuff tendon rupture. 2. Mild to moderate acromioclavicular joint osteoarthritis. No fracture or dislocation. No significan t joint effusion. 3. Suggestion of subtle superior anterior labral tear at 12 to 1:00 position. Reviewed by: Riki Monroe MD on 02/22/2022 2:06 PM PDT Approved by: Riki Monroe MD on 02/22/2022 2:06 PM PDT Station ID: [id number]
== END 2022-02-22 06:58 | disposition home or self-care (01) ==
LOC: DI 06:57
PROVIDERS: ATTEND Physician Assistant
DX: M75.112 Incomplete rotator cuff tear or rupture of left shoulder, not specified as traumatic (principal); M19.012 Primary osteoarthritis, left shoulder; R93.6 Abnormal findings on diagnostic imaging of limbs; R93.89 Abnormal findings on diagnostic imaging of other specified body structures

== ENCOUNTER 2023-02-12 19:33 | Emergency (ER) | payer MEDICAID, OTHER ==
[2023-02-12] MEDS ORDERED: LORazepam 1 MG TABLET PO STA (19:47)
[2023-02-12] MEDS ORDERED: chlordiazePOXIDE 25 MG CAPSULE PO STA (19:50)
--- NOTE | 2023-02-12 19:57 | ED Physician Documentation ---
History of Present Illness - Stated complaint Stated Complaint: FIT - Chief complaint Chief Complaint: General - Additonal information Additional information: 57-year-old male is brought into the emergency department by [facility] for evaluation of fit for confinement. They report they picked him up on a warrant. Patient reports longstanding history of alcohol use. He has not drank in 4 dayssince 02/08/23. [facility] officers tell me that he is hallucinating though the patient states he is not hallucinating. He is here for his safety. He says he has had hallucinations in the past though does not feel that present today. Does not have threat to himself. He does have some mild tremor but no nausea or vomiting. No chest pain. He does have a fabio complexion of a chronic alcoholic. Review of Systems Constitutional: denies: Fever, Chills Nose: reports: Reviewed and negative Throat: reports: Reviewed and negative Cardiac: reports: Reviewed and negative Respiratory: reports: Reviewed and negative GI: reports: Reviewed and negative : reports: Reviewed and negative PD PAST MEDICAL HISTORY - Past Medical History Cardiovascular: None Respiratory: None Neuro: Headaches, Peripheral neuropathy Endocrine/Autoimmune: None GI: None : None HEENT: Other Psych: None Musculoskeletal: None Derm: Other - Past Surgical History Past Surgical History: Yes - Present Medications Home Medications: Ambulatory Orders Medication Instructions Recorded Confirmed No Known Home Medications 10/17/21 10/17/21 - Allergies Allergies/Adverse Reactions: Allergies Allergy/AdvReac Type Severity Reaction Status Date / Time No Known Drug Allergies Allergy Verified 10/17/21 05:25 - Social History Does the pt smoke?: Yes Smoking Status: Current every day smoker Does the pt drink ETOH?: Yes Does the pt have substance abuse?: Yes - Immunizations Immunizations are current?: Yes - POLST Patient has POLST: No POLST Status: Full Code PD ED PE NORMAL - General General: Alert and oriented X 3, No acute distress, Well developed/nourished - HEENT HEENT: Atraumatic, Moist mucous membranes - Neck Neck: Supple, no meningeal sign - Cardiac Cardiac: RRR, No murmur - Abdomen Abdomen: Normal bowel sounds, Soft - Rectal Rectal: Deferred - Derm Derm: Other (No scleral icterus or jaundice) - Extremities Extremities: No deformity, No tenderness to palpate, Normal ROM s pain - Neuro Neuro: Alert and oriented X 3, 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 No audio or visual hallucinations. Calm compliant and cooperative) Results - Vitals Vitals: Vital Signs - 24 hr 02/12/23 02/12/23 19:36 20:18 Temperature 37.2 C Heart Rate 111 H 89 Respiratory 16 18 Rate Blood Pressure 144/96 H 150/68 H O2 Saturation 96 94 Oxygen O2 Source [With Activity] Room air O2 Source [Without Activity] Room air O2 Source Room air PD Medical Decision Making - ED course Complexity details: reviewed results, re-evaluated patient, considered differential, d/w patient ED course: 57-year-old male who has a longstanding history of alcohol abuse was brought in by [facility] officers for evaluation of fit for confinement. Patient reports a longstanding history of alcoholism typically drinking a pint a day. He has not drank for 4 more days. He denies any current medical complaints to this provider. On exam he had unremarkable cardiopulmonary auscultation. There was some mild tachycardia with a rate of 105. He did have a mild tremor. He did not appear intoxicated. There were no focal neurodeficits. He did not appear to be hallucinating. I did give him a single dose of Librium which had no effect on the tremor. I suspect the tremor is likely long-term. At this time patient is stable for confinement. He with alcohol sensation of 4 more days he is outside the window of acute alcohol withdrawal symptoms. We discussed the usual emergent return precautions. Departure - Departure Disposition: 01 Home, Self Care Clinical Impression: History of alcohol abuse Condition: Stable Comments: Bib was brought to the emergency department by [facility] officers for evaluation of fit for confinement. Gabbie denies acute medical complaints at this time. He states to this provider he has not drank in 4 days. He is o utside the window of acute alcohol with drawl. He is stable for confinement. Ativan can be given 1 mg 3 times a day as needed for any concerns of tremor or anxiety. Should the concerns change for withdrawal or declining condition he can return to the ER for repeat evaluation
[2023-02-12 20:18] VITALS: BP 150/68
== END 2023-02-12 20:28 | disposition home or self-care (01) ==
LOC: EDUNIT# → ED 19:33
DX: Z02.89 Encounter for other administrative examinations (principal); F10.11 Alcohol abuse, in remission; F17.200 Nicotine dependence, unspecified, uncomplicated
CPT/HCPCS: 99282; A9270

== ENCOUNTER 2024-08-10 18:15 | Inpatient (IN) ==
[2024-08-10] MEDS: LORazepam 2 MG/ML VIAL IVP STA ×3 (18:47→20:27)
[2024-08-10] MEDS: LACTATED RINGERS 1,000 ML IV STA (18:53)
[2024-08-10] MEDS: ONDANSETRON 4 MG/2 ML VIAL IVP STA (18:56)
--- NOTE | 2024-08-10 18:59 | ED Physician Documentation ---
History of Present Illness Stated complaint Stated Complaint: COUGH Chief complaint Chief Complaint: Fever History obtained from History obtained from: Patient History of Present Illness Timing: Prior to arrival Additonal information Additional information: Patient comes from alcohol withdrawal treatment facility after notably being febrile and having a cough. On arrival patient appears fatigued only answering a few questions. He notes he was feeling bad only starting today. He admitted himself to alcohol withdrawal facility yesterday and his last drink was yesterday prior to going to treatment facility. He last received a dose of Ativan by facility due to tremors at 1300. However he developed a cough and remained febrile since they sent him to the emergency department. Patient notes some mild shortness of breath at this time and generally feeling unwell. He notes he does have a history of seizures with withdrawal history. He denies any nausea vomiting he is ANO x 3 on arrival. He has persistent tremors at this time but denies any hallucinations or or headaches or hearing voices. Patient CIWA on arrival was 20. Meds/Allgy Home Medications Ambulatory Orders Medication Instructions Recorded Confirmed No Known Home Medications 10/17/21 10/17/21 Allergies Allergies Allergy/AdvReac Type Severity Reaction Status Date / Time No Known Drug Allergies Allergy Verified 08/10/24 18:21 [facility] Medical History Medical History Alcohol abuse Social History Social History Smoking Status: Current every day smoker Number of Years Smoked: 32 How many cigarettes a day do you smoke? (20 cigarettes=1 Pk): 10 Do you dip or chew tobacco?: No Do you vape?: No Living arrangement: At home Living Condition: With family Relationship: Do you feel safe in your home environment?: Yes Suffered physical, verbal, emotional, or financial abuse?: No History of Abuse: No ETOH Use: Frequency: Daily POLST Patient has POLST: No POLST Status: Full Code Exam Constitutional Patient appears fatigued on arrival with persistent tremors at rest throughout the body. HENMT normocephalic Eyes PERRL, EOMs intact bilaterally and conjunctivae normal No nystagmus Neck/C-Spine visual inspection normal and trachea midline Lymph no lymphadenopathy noted Chest inspection of chest normal and palpation of chest normal Respiratory breath sounds equal bilaterally Cardiovascular Regular rhythm but significant tachycardia on arrival. Gastrointestinal abdomen normal to inspection Genitourinary no CVA tenderness Extremities normal to inspection Neurology Patient has tremors on arrival GCS 14 on arrival. Speech normal coordination normal. Skin no rash, no lesions and no mottling Results Vitals Vitals: Vital Signs - 24 hr 08/10/24 18:21 08/10/24 19:44 08/10/24 20:26 Temperature 39.6 C H 39.7 C H Temperature Source Oral Rectal Pulse Rate 150 H 137 H Respiratory Rate 30 H Blood Pressure 128/82 120/80 O2 Saturation 91 L 94 O2 Source Room air Nasal cannula If not protocol: Oxygen Flow, liters/minute Pain Intensity 0 4 08/10/24 21:00 08/10/24 21:00 08/10/24 21:01 Temperature Temperature Source Pulse Rate 126 H Respiratory Rate 22 Blood Pressure 130/88 O2 Saturation 95 O2 Source Nasal cannula If not protocol: Oxygen Flow, liters/minute 2 Pain Intensity 10 10 10 08/10/24 21:04 08/10/24 21:29 Temperature 38.6 C H 38.2 C H Temperature Source Temporal Artery Scan Temporal Artery Scan Pulse Rate 120 H Respiratory Rate 30 H Blood Pressure 127/77 O2 Saturation 93 O2 Source Nasal cannula If not protocol: Oxygen Flow, liters/minute 2 Pain Intensity Oxygen O2 Source [With Activity] Room air O2 Source [Without Activity] Room air O2 Source Nasal cannula EKG (time done) 1826: EKG releavant findings:: EKG personally interpreted by author of this note. Relevant findings are: Rate: Rate (enter#) (144) Rhythm: Sinus tachycardia [place]: Normal Intervals: Normal [place] QRS: Normal Ischemia: Normal ST segments Computer interpretation: Agree with computer Labs Labs: Microbiology 08/10/24 19:28 Occult Blood - Final Stool Laboratory Tests 08/10/24 08/10/24 08/10/24 18:19 18:37 18:41 WBC 13.6 H RBC 3.62 L Hgb 12.3 L Hct 33.9 L MCV 93.6 MCH 34.0 H MCHC 36.3 H RDW 14.6 Plt Count 155 MPV 11.6 H Neut # (Auto) 11.7 H Lymph # (Auto) 0.7 L [place] # (Auto) 0.9 Eos # (Auto) 0.0 Baso # (Auto) 0.1 Absolute Nucleated RBC 0.00 Nucleated RBC % 0.0 PT 13.2 H INR 1.2 Sodium 129 L Potassium 4.2 Chloride 90 L Carbon Dioxide 28 Anion Gap 11.0 BUN 22 H Creatinine 1.1 Estimated GFR (MDRD) 69 L Glucose 145 H Lactic Acid 2.4 H Calcium 9.2 Magnesium 1.3 L Total Bilirubin 1.8 H AST 317 H ALT 79 H Alkaline Phosphatase 118 Total Protein 7.5 Albumin 3.2 Globulin 4.3 H Albumin/Globulin Ratio 0.7 L Nasal Adenovirus (PCR) NOT DETECTED Nasal B. parapertussis DNA (PCR) NOT DETECTED Nasal Coronavir 229E PCR NOT DETECTED Nasal Coronavir HKU1 PCR NOT DETECTED Nasal Coronavir NL63 PCR NOT DETECTED Nasal Coronavir OC43 PCR NOT DETECTED Nasal Enterovir/Rhinovir PCR DETECTED A Nasal Influenza B PCR NOT DETECTED Nasal Influenza A PCR NOT DETECTED Nasal Parainfluen 1 PCR NOT DETECTED Nasal Parainfluen 2 PCR NOT DETECTED Nasal Parainfluen 3 PCR NOT DETECTED Nasal Parainfluen 4 PCR NOT DETECTED Nasal RSV (PCR) NOT DETECTED Nasal B.pertussis DNA PCR NOT DETECTED Nasal C.pneumoniae (PCR) NOT DETECTED Alexandre Human Metapneumo PCR NOT DETECTED Nasal M.pneumoniae (PCR) NOT DETECTED Nasal SARS-CoV-2 (PCR) NOT DETECTED Urine Opiates Screen Ur Buprenorphine Scrn Ur Oxycodone Screen Urine Methadone Screen Acetaminophen 1.4 Ur Barbiturates Screen Ur Tricyclics Screen Ur Phencyclidine Scrn Ur Amphetamine Screen U Methamphetamines Scrn U Benzodiazepines Scrn Urine Cocaine Screen U Cannabinoids Screen Ur Drug Screen Comment Ethyl Alcohol < 10.0 08/10/24 19:28 WBC RBC Hgb Hct MCV MCH MCHC RDW Plt Count MPV Neut # (Auto) Lymph # (Auto) [place] # (Auto) Eos # (Auto) Baso # (Auto) Absolute Nucleated RBC Nucleated RBC % PT INR Sodium Potassium Chloride Carbon Dioxide Anion Gap BUN Creatinine Estimated GFR (MDRD) Glucose Lactic Acid Calcium Magnesium Total Bilirubin AST ALT Alkaline Phosphatase Total Protein Albumin Globulin Albumin/Globulin Ratio Nasal Adenovirus (PCR) Nasal B. parapertussis DNA (PCR) Nasal Coronavir 229E PCR Nasal Coronavir HKU1 PCR Nasal Coronavir NL63 PCR Nasal Coronavir OC43 PCR Nasal Enterovir/Rhinovir PCR Nasal Influenza B PCR Nasal Influenza A PCR Nasal Parainfluen 1 PCR Nasal Parainfluen 2 PCR Nasal Parainfluen 3 PCR Nasal Parainfluen 4 PCR Nasal RSV (PCR) Nasal B.pertussis DNA PCR Nasal C.pneumoniae (PCR) Alexandre Human Metapneumo PCR Nasal M.pneumoniae (PCR) Nasal SARS-CoV-2 (PCR) Urine Opiates Screen NEGATIVE Ur Buprenorphine Scrn NEGATIVE Ur Oxycodone Screen NEGATIVE Urine Methadone Screen NEGATIVE Acetaminophen Ur Barbiturates Screen NEGATIVE Ur Tricyclics Screen NEGATIVE Ur Phencyclidine Scrn NEGATIVE Ur Amphetamine Screen NEGATIVE U Methamphetamines Scrn NEGATIVE U Benzodiazepines Scrn POSITIVE H Urine Cocaine Screen NEGATIVE U Cannabinoids Screen NEGATIVE Ur Drug Screen Comment CUTOFF CONC BELOW: Ethyl Alcohol PD Medical Decision Making ED course Complexity details: reviewed old records and reviewed results ED course: Patient is a 59-year-old male comes in with past medical history of daily alcoho l use he recently admitted himself to alcohol withdrawal facility but last drink was yesterday he is being treated with Ativan by facility with last dose at 1300 however he continued to have tremors and became febrile to 103. Patient does have history of report of seizures with alcohol. Vitals on arrival concerning for tachycardic to the 140s EKG does show sinus tachycardia no signs of arrhythmias diminished breath sounds on auscultation of the lungs and diffuse tremors on examination without movement. Patient ANO x 2 on arrival but able to answer questions and follow commands. No abdominal tenderness on exam no signs of erythema redness swelling to upper or lower extremities. Labs obtained on arrival show leukocytosis at 13 concerning for infection lactic acid elevated at 2.6. Patient meets criteria for severe sepsis. 2 L of fluid ordered for patient and patient was started on ceftriaxone and vancomycin pending acute cause. Symptoms could be secondary to severe sepsis versus alcohol withdrawal. He was given 2 g of Ativan on arrival he was given another dose of Ativan about 2 hours later for persistent tremors but this seemed to have improved after temperature has decreased from 39 C to 38 C. He has cooling packs on him and is still receiving IV fluids. Alcohol level is negative and urine drug screen is negative as well. Pending urine analysis at this time. Patient had blood cultures drawn and IV antibiotics of ceftriaxone and Vanco began patient does have left lung opacity concerning for pneumonia. He remains on 2 L nasal cannula oxygen saturating between 93 to 95% here in the emergency department. Temperature and heart rate are downtrending but he remains at 38.2 C and tachycardic to the 120s. Patient is finishing up second dose of fluids and he has received 4 mg of Ativan IV here in emergency department. CIWA remains at 20, difficult to fully determine symptoms most likely from sepsis as opposed to alcohol withdrawal at this time. Discussed case with hospitalist Dr. Davies who is agreeable with admission we discussed inpatient is most likely suitable for ICU given persistent tachycardia mildly febrile and concerns for worsening withdrawal symptoms. Patient will be brought up to the floor as 1 bed is still available.Hospitalist and patient are agreeable with this plan. Discharge Plan Discharge Patient Disposition: 66 [facility] DC/Xfer Condition: Poor Clinical Impression: Fever, Pneumonia, Lethargy, Severe sepsis, Elevated lactic acid level Prescriptions: No Action No Known Home Medications Print Language: Belarusian
[2024-08-10 19:01] LABS: BASOPHILS # (AUTO) 0.1 10^3/uL (0.0-0.1); BASOPHILS % (AUTO) 0.6 %; EOSINOPHILS % (AUTO) 0.2 %; HCT - HEMATOCRIT 33.9 % (42.0-52.0); HGB - HEMOGLOBIN 12.3 g/dL (14.0-18.0); LYMPHOCYTES # (AUTO) 0.7 10^3/uL (1.5-3.5); LYMPHOCYTES % (AUTO) 5.4 %; MEAN CORPUSCULAR HGB CONC 36.3 g/dL (32.0-36.0); MEAN CORPUSCULAR VOLUME 93.6 fL (80.0-94.0); MEAN PLATELET VOLUME 11.6 fL (7.4-11.4); MONOCYTES # (AUTO) 0.9 10^3/uL (0.0-1.0); MONOCYTES % (AUTO) 6.3 %; NEUTROPHILS # (AUTO) 11.7 10^3/uL (1.5-6.6); NEUTROPHILS % (AUTO) 86.1 %; PLT - PLATELET COUNT 155 10^3/uL (130-450); RED BLOOD COUNT 3.62 10^6/uL (4.70-6.10); RED CELL DISTRIBUTION WIDTH 14.6 % (12.0-15.0); WHITE BLOOD COUNT 13.6 x10^3/uL (4.8-10.8)
[2024-08-10 19:11] LABS: INR 1.2 (0.8-1.2); PT - PROTHROMBIN TIME 13.2 secs (9.9-12.6)
--- NOTE | 2024-08-10 19:13 | XRAY Report ---
PROCEDURE: XR Chest 1V INDICATIONS: cough, shortness of breath TECHNIQUE: One view of the chest was acquired. COMPARISON: None. FINDINGS: Surgical changes and devices: None. Lungs and pleura: Dense right midlung infiltrate can be seen. On the semiupright images, no large pn eumothorax or large pleural effusions can be seen. Low lung volumes can be seen, causing a crowded a ppearance to the lung markings. Mediastinum: Mediastinal contours appear normal. Heart size is normal. Bones and chest wall: No suspicious bony lesions. Overlying soft tissues appear unremarkable. IMPRESSION: Dense right midlung infiltrate. Reviewed by: Robi Sloan MD on 08/10/2024 6:11 PM ADRIAN Approved by: Robi Sloan MD on 08/10/2024 6:11 PM ADRIAN Station ID: [id number]
[2024-08-10 19:15] LABS: ACETAMINOPHEN 1.4 ug/mL; ALBUMIN 3.2 g/dL (3.2-5.5); ALBUMIN/GLOBULIN RATIO 0.7 (1.0-2.2); ALKALINE PHOSPHATASE 118 IU/L (42-121); ALT ALANINE AMINOTRANSFERASE 79 IU/L (10-60); AST ASPARTATE AMINOTRANSFERASE 317 IU/L (10-42); BILIRUBIN,TOTAL 1.8 mg/dL (0.2-1.0); BUN - BLOOD UREA NITROGEN 22 mg/dL (6-20); CALCIUM 9.2 mg/dL (8.5-10.3); CARBON DIOXIDE - CO2 28 mmol/L (21-32); CHLORIDE 90 mmol/L (101-111); CREATININE 1.1 mg/dL (0.6-1.3); ETOH - ETHANOL < 10.0 mg/dL; GFR - MDRD 69 (>89); GLUCOSE 145 mg/dL (74-104); MAGNESIUM 1.3 mg/dL (1.7-2.3); POTASSIUM 4.2 mmol/L (3.5-4.5); SODIUM 129 mmol/L (135-145); TOTAL PROTEIN 7.5 g/dL (6.4-8.9)
[2024-08-10 20:01] LABS: B. PARAPERTUSSIS- RESP PCR PAN NOT DETECTED; B. PERTUSSIS- RESP PCR PANEL NOT DETECTED; C. PNEUMONIAE- RESP PCR PANEL NOT DETECTED; CORONAVIRUS 229E-RESP PCR NOT DETECTED; CORONAVIRUS HKU1-RESP PCR NOT DETECTED; CORONAVIRUS NL63-RESP PCR NOT DETECTED; CORONAVIRUS OC43-RESP PCR NOT DETECTED; HUMAN METAPNEUMOVIRUS NOT DETECTED; INFLUENZA A- RESP PCR PANEL NOT DETECTED; INFLUENZA B - RESP PCR PANEL NOT DETECTED; M. PNEUMONIAE- RESP PCR PANEL NOT DETECTED; PARAINFLUENZA VIRUS 1 NOT DETECTED; PARAINFLUENZA VIRUS 2 NOT DETECTED; PARAINFLUENZA VIRUS 3 NOT DETECTED; PARAINFLUENZA VIRUS 4 NOT DETECTED; RHINOVIRUS/ENTEROVIRUS DETECTED; RSV- RESP PCR PANEL NOT DETECTED; SARS-CoV-2 -RESP PCR PANEL NOT DETECTED
[2024-08-10] MEDS ORDERED: cefTRIAXone 2 GM VIAL ONE (20:21)
[2024-08-10] MEDS: SODIUM CHLORIDE 0.9% 1,000 ML IV STA ×2 (20:23→21:37)
[2024-08-10] MEDS: ACETAMINOPHEN 500 MG TABLET PO STA (20:26)
[2024-08-10] MEDS: cefTRIAXone 2 GM in SODIUM CHLORIDE 0.9% MINIBAG 100 ML IV STA (20:26)
[2024-08-10 20:35] LABS: AMPHETAMINE SCREEN,URINE NEGATIVE (NEGATIVE); BARBITURATE SCREEN,UR NEGATIVE (NEGATIVE); BENZODIAZEPINES SCREEN, URINE POSITIVE (NEGATIVE); BUPRENORPHINE SCREEN, URINE NEGATIVE (NEGATIVE); COCAINE SCREEN URINE NEGATIVE (NEGATIVE); METHADONE SCREEN, URINE NEGATIVE (NEGATIVE); METHAMPHETAMINES SCREEN, URINE NEGATIVE (NEGATIVE); OPIATE SCREEN, URINE NEGATIVE (NEGATIVE); OXYCODONE SCREEN, URINE NEGATIVE (NEGATIVE); THC CANNABINOID SCREEN, URINE NEGATIVE (NEGATIVE); TRICYCLIC ANTIDEPRESSANT,URINE NEGATIVE (NEGATIVE)
[2024-08-10] MEDS: IBUPROFEN 800 MG TABLET PO STA (21:00)
[2024-08-10] MEDS ORDERED: VANCOMYCIN 1 GM VIAL ONE (21:07)
[2024-08-10] MEDS: VANCOMYCIN INJ 1 GM in SODIUM CHLORIDE 0.9% 250 ML IV SCH (21:15)
--- NOTE | 2024-08-10 21:38 | HISTORY & PHYSICAL EXAMINATION ---
Chief Complaint Chief Complaint Chief Complaint: Fever History of Present Illness Admitted From Admitted From:: ER History Obtained From Records Reviewed: Yes History obtained from: Staff, chart Exam Limitations: Virtual exam, pt drowsy History of Present Illness HPI Comment/Other: H&P was conducted via video remotely, using [employer]. Patient is in [place]. Physician is in [place]. [employer] DISPATCHER is at bedside. Unable to obtain history from pt d/t pt's clinical condition/drowsiness. RN reports that he just received another dose of Ativan. History obtained from staff, chart. 59 yo M with PMH of ETOH abuse with h/o withdrawal seizures and Tobacco use presented to the ER from a local ETOH Detox facility for c/o 1 day h/o Fever, SOB, cough. Pt has a long h/o ETOH abuse with previous hospitalizations and rehab facility stays. Pt admitted himself to alcohol withdrawal facility yesterday. His last drink was just prior to going to the facility. Pt received Ativan for tremors at 1300 today. He continued to have tremors and the staff noticed that he was coughing, had SOB, and checked his temp, which was 103F, so they sent him to the ER. In the ER, pt was reportedly tremulous, anxious and A+Ox3. His CIWA score was 20. He has since received Ativan IV and now is drowsy and unable to answer questions or follow commands. Pt had denied seizure, but he does have h/o withdrawal sz. He had denied N/V/abdo pain. HR 120-140, RR 30, T38.2C, SpO2 93% 2L NC O2 WBC 13.5, LA 2.4, Hgb 12.3, MCH 34, Na 129, Glc 145, AST 317, ALT 79, Mg 1.3, ETOH<10, BC x 2 pending Viral pathogen: Rhinovirus + CXR: R middle lobe infiltrate Pt has received Tylenol, Thiamine, Mag SO4 2 gm IV, Folate, Zofran, IVF x 3L, Ativan 5 mg IV, Rocephin/Vanco in the ER. Review of Systems Status of ROS: unobtainable due to medical condition PFSH Medical History Medical History Alcohol abuse Social History Social History Smoking Status: Current every day smoker Number of Years Smoked: 32 How many cigarettes a day do you smoke? (20 cigarettes=1 Pk): 10 Do you dip or chew tobacco?: No Do you vape?: No Living arrangement: At home Living Condition: With family Relationship: Do you feel safe in your home environment?: Yes Suffered physical, verbal, emotional, or financial abuse?: No History of Abuse: No ETOH Use: Frequency: Daily POLST Patient has POLST: No POLST Status: Full Code Meds/Allgy Home Medications Ambulatory Orders Medication Instructions Recorded Confirmed No Known Home Medications 10/17/21 10/17/21 Allergies Allergies Allergy/AdvReac Type Severity Reaction Status Date / Time No Known Drug Allergies Allergy Verified 08/10/24 18:21 Exam Exam Patient appears fatigued on arrival with persistent tremors at rest throughout the body. HENMT normocephalic Eyes PERRL, EOMs intact bilaterally and conjunctivae normal No nystagmus Neck/C-Spine visual inspection normal and trachea midline Lymph no lymphadenopathy noted Chest inspection of chest normal and palpation of chest normal Respiratory breath sounds equal bilaterally Cardiovascular Regular rhythm but significant tachycardia on arrival. Gastrointestinal abdomen normal to inspection Genitourinary no CVA tenderness Extremities normal to inspection Neurology Patient has tremors on arrival GCS 14 on arrival. Speech normal coordination normal. Skin no rash, no lesions and no mottling Constitutional normal general appearance and no apparent distress Drowsy HENMT normocephalic Eyes no scleral icterus Respiratory +Tachypnea; cart stethoscope not working; per ER Provider: equal BS Cardiovascular cart stethoscope not working; per ER Provider: RR, tachcardic, no murmurs Gastrointestinal per ER Provider: non-distended, NT, Soft Extremities per ER Provider: moves all extrem, no edema Neurology Pt drowsy, not following commands; per ER Provider: +tremors, GCS 14-20, Speech and coordination normal on arrival to ER. Conclusion/Plan Problem List (1) Pneumonia: Plan RML Pneumonia Rhinovirus+ Sepsis Fever Tachypnea Tachycardia Leukocytosis Lactic Acidosis Tobacco use -HR 120-140, RR 30, T38.2C, SpO2 93% 2L NC O2, U/A pending, EKG pending -WBC 13.5, LA 2.4, BC x 2 pending -Viral pathogen: Rhinovirus + -CXR: R middle lobe infiltrate -Pt has received Tylenol, IVF x 3L, Rocephin/Vanco in the ER. -admit to ICU -O2 support PRN -Duonebs PRN -continue IVF -pt does have Rhinovirus, but is also at high risk for aspiration PNA, so will treat with Unasyn IV ETOH abuse H/o withdrawal seizures Tremors -AST 317, ALT 79, ETOH<10 -Pt has received Thiamine, Folate, Zofran, Ativan 5 mg IV in the ER. -CIWA protocol with Ativan PRN -continue MVI, thiamine, Folate -pt interested in quitting ETOH; came from detox facility - consult Hyponatremia -Na 129 -most likely hypoosmolar -pt tolerating IVF well -continue IVF and monitor Na Hyperglycemia -Glc 145 -check Hgba1c Low Magnesium -Mg 1.3 -supplement now and PRN Anemia, macrocytic -Hgb 12.3, MCH 34 -check Folate/B12 VTE Prophylaxis: Heparin SQ Code Status: Full Code ~Shona Davies MD Hospitalist Lab Results Lab results reviewed: Yes 08/10/24 18:37 08/10/24 18:37 Diagnostic Imaging Results Diagnostic Imaging Results: positive Final report reviewed
[2024-08-10] MEDS ORDERED: ONDANSETRON 4 MG/2 ML VIAL IVP PRN (21:53)
[2024-08-10] MEDS ORDERED: ONDANSETRON ODT 4 MG TABLET TL PRN (21:53)
[2024-08-10] MEDS ORDERED: ALBUTEROL NEB 2.5 MG/3 ML INH PRN (21:53)
[2024-08-10] MEDS ORDERED: IPRATROPIUM 0.2 MG/ML NEB INH PRN (21:53)
[2024-08-10] MEDS: AMPICILLIN/SULBACTAM 3 GM in SODIUM CHLORIDE 0.9% MINIBAG 100 ML IV SCH (23:18)
[2024-08-10] MEDS: SODIUM CHLORIDE 0.9% 1,000 ML IV SCH (23:19)
[2024-08-10] MEDS: MAGNESIUM SULFATE 2 GRAM 2 GM/50 ML BAG IV ONE (23:19)
[2024-08-10] MEDS: THIAMINE INJ 100 MG, MAGNESIUM SULFATE 2 GM, MULTIVITAMIN 10 ML, FOLIC ACID INJ 1 MG in... IV STA (23:59)
[2024-08-11] MEDS: SODIUM CHLORIDE FLUSH 0.9% 10 ML SYRINGE IVP SCH (00:18)
[2024-08-11 05:54] LABS: BASOPHILS % (AUTO) 0.5 %; EOSINOPHILS % (AUTO) 0.4 %; HCT - HEMATOCRIT 29.6 % (42.0-52.0); HGB - HEMOGLOBIN 10.2 g/dL (14.0-18.0); LYMPHOCYTES % (AUTO) 6.5 %; MEAN CORPUSCULAR HEMOGLOBIN 32.9 pg (27.0-31.0); MEAN CORPUSCULAR HGB CONC 34.5 g/dL (32.0-36.0); MEAN CORPUSCULAR VOLUME 95.5 fL (80.0-94.0); MEAN PLATELET VOLUME 11.5 fL (7.4-11.4); MONOCYTES % (AUTO) 5.8 %; NEUTROPHILS % (AUTO) 79.1 %; PLT - PLATELET COUNT 138 10^3/uL (130-450); RED CELL DISTRIBUTION WIDTH 14.8 % (12.0-15.0); WHITE BLOOD COUNT 11.9 x10^3/uL (4.8-10.8)
[2024-08-11 05:59] LABS: ABNORMAL LYMPHS % (MANUAL) 0 %; CALCIUM, IONIZED 1.05 mmol/L (1.15-1.33); VBG PH 7.444 (7.31-7.41)
[2024-08-11 06:03] LABS: MAGNESIUM 1.8 mg/dL (1.7-2.3)
[2024-08-11 06:09] LABS: ALBUMIN 2.5 g/dL (3.2-5.5); ALBUMIN/GLOBULIN RATIO 0.8 (1.0-2.2); BILIRUBIN,TOTAL 1.4 mg/dL (0.2-1.0); CALCIUM 8.1 mg/dL (8.5-10.3); CREATININE 0.8 mg/dL (0.6-1.3); PHOSPHORUS 3.8 mg/dL (2.5-5.0); POTASSIUM 3.5 mmol/L (3.5-4.5); TOTAL PROTEIN 5.8 g/dL (6.4-8.9)
[2024-08-11 06:15] LABS: BAND NEUTROPHILS % (MANUAL) 4 %; LYMPHOCYTES # (MANUAL) 1.3 10^3/uL (1.5-3.5); LYMPHOCYTES % (MANUAL) 11 %; METAMYELOCYTES % (MANUAL) 2 %; MONOCYTES # (MANUAL) 0.8 10^3/uL (0.0-1.0); NEUTROPHILS # (MANUAL) 9.5 10^3/uL (1.5-6.6)
[2024-08-11 06:17] LABS: DIFFERENTIAL COMMENT MANUAL DIFFERENTIAL; PLATELET ESTIMATE, MANUAL NORMAL (130-450,000) (NORMAL); PLATELET MORPHOLOGY NORMAL APPEARANCE (NORMAL); RBC MORPHOLOGY (MULTIPLE) NORMAL APPEARANCE (NORMAL); WBC MORPHOLOGY (MULTIPLE) NORMAL APPEARANCE (NORMAL)
[2024-08-11] MEDS: PANTOPRAZOLE 40 MG VIAL IVP SCH (06:39)
[2024-08-11] MEDS: MAGNESIUM SULFATE 2 GRAM 2 GM/50 ML BAG IV ONE (07:19)
[2024-08-11] MEDS: POTASSIUM CHLOR 10 MEQ/100 ML 10 MEQ/100 ML BAG IV SCH (07:19)
[2024-08-11] MEDS: CALCIUM GLUC 1,000MG/50ML-NACL 1,000 MG/50 ML BAG IV ONE (07:27)
[2024-08-11 09:33] LABS: ESTIMATED AVERAGE GLUCOSE 105 mg/dL (70-100); HEMOGLOBIN A1c% 5.3 % (4.27-6.07)
[2024-08-11] MEDS: HEPARIN 5,000 UNIT/ML VIAL SUBQ SCH (09:37)
[2024-08-11] MEDS: THIAMINE 100 MG TABLET PO SCH (09:38)
[2024-08-11] MEDS: PRENATAL VITAMIN TABLET PO SCH (09:38)
--- NOTE | 2024-08-11 11:59 | PROVIDER PROGRESS NOTE ---
Subjective Prog Note Date Prog Note Date: 08/11/24 Prog Note Time: 11:48 Subjective Subjective: I reviewed the chart. Patient was admitted last night by telehealth. Patient went to a local rehab facility to go through withdrawal. While there he was tremulous, hypertensive, tachycardic and receiving the correct medications according to the medication list. He does have a history of seizure disorder. However he developed cough, fever, and was brought to the emergency room and he has been identified as a right middle lobe pneumonia. He was started on Unasyn and vancomycin for his pneumonia. He spiked a temp to 103 degrees last night. He has been continued on CIWA protocol. His CIWA scoring was 20 in the ER, and has come down to 9 or 10. He is on 2 L nasal cannula and saturating 97%. The benzodiazepines for the CIWA protocol are doing well for him. Nurse reports that he does awaken easily but goes right back to sleep. His pulse is 96. Blood pressure is 103/71. Blood cultures are now positive for gram-positive cocci in chains at less than 24 hours. He denies pain. But he is alert and oriented. Current Medications Current Medications Current Medications: Current Medications Generic Name Dose Route Start Last Admin Trade Name Freq PRN Reason Stop Dose Admin Acetaminophen 650 mg 08/10/24 21:53 08/11/24 16:30 Acetaminophen 325 Mg Tablet PO 650 mg Q4HR PRN Administration Pain 1 to 4, or Fever Albuterol 2.5 mg 08/10/24 21:53 Albuterol Neb 2.5 Mg/3 Ml INH Q4HR PRN Wheezing Chlordiazepoxide HCl 5 mg 08/11/24 13:00 08/11/24 18:29 Chlordiazepoxide 5 Mg Capsule PO 5 mg Q6HR SOLIS Administration Heparin Sodium (Porcine) 5,000 unit 08/11/24 09:00 08/11/24 09:37 Heparin 5,000 Unit/Ml Vial SUBQ 5,000 unit BID SOLIS Administration Vancomycin HCl 1 gm/ Sodium 250 mls @ 250 mls/hr 08/10/24 21:00 08/10/24 23:20 Chloride IV Infused Q12H SOLIS Infusion Sodium Chloride 1,000 mls @ 100 mls/hr 08/10/24 22:00 08/11/24 18:29 Normal Saline 0.9% IV 100 mls/hr .Q10H SOLIS Administration Ampicillin Sodium/Sulbactam 100 mls @ 200 mls/hr 08/10/24 22:00 08/11/24 16:00 Sodium 3 gm/ Sodium Chloride IV Infused Q6H SOLIS Infusion Ipratropium [place] 0.5 mg 08/10/24 21:53 Ipratropium 0.2 Mg/Ml Neb INH Q6HR PRN Wheezing Lorazepam 2 - 20 mg 08/10/24 21:47 08/11/24 17:48 Lorazepam 2 Mg/Ml Vial IVP 2 mg Q15M PRN Administration RASS > 0 Protocol Nicotine 1 patch 08/11/24 14:31 08/11/24 15:14 Nicotine 21 Mg Patch TOP Not Given DAILY SOLIS Ondansetron HCl 4 mg 08/10/24 21:53 Ondansetron Odt 4 Mg Tablet TL Q6HR PRN Nausea / Vomiting Ondansetron HCl 4 mg 08/10/24 21:53 Ondansetron 4 Mg/2 Ml Vial IVP Q6HR PRN Nausea / Vomiting Pantoprazole Sodium 40 mg 08/11/24 07:00 08/11/24 06:39 Pantoprazole 40 Mg Vial IVP 40 mg QDAC SOLIS Administration Multivit/Folic Acid/Iron 1 tab 08/11/24 09:00 08/11/24 09:38 Vitamin Tablet PO 1 tab DAILY SOLIS Administration Sodium Chloride 10 ml 08/11/24 01:00 08/11/24 17:48 Sodium Chloride Flush 0.9% 10 Ml Syringe IVP 10 ml 0100,0900,1700 SOLIS Administration Sodium Chloride 10 ml 08/10/24 21:53 Sodium Chloride Flush 0.9% 10 Ml Syringe IVP PRN PRN NEEDED PER PROVIDER ORDERS Thiamine HCl 100 mg 08/11/24 09:00 08/11/24 09:38 Thiamine 100 Mg Tablet PO 100 mg DAILY SOLIS Administration Objective Vital Signs/Intake & Output Reviewed Vital Signs: Yes Vital Signs: Vital Signs Temp Pulse Resp BP Pulse Ox O2 Flow Rate 08/11/24 18:00 37.6 C 116 H 40 H 114/67 93 2 08/11/24 17:00 38.4 C H 133 H 32 H 135/80 H 92 2 08/11/24 16:00 120 H 41 H 117/66 95 2 08/11/24 15:00 112 H 37 H 104/69 94 2 Intake & Output: Intake & Output 08/09/24 08/10/24 08/11/24 08/12/24 05:59 05:59 05:59 05:59 Intake Total 3500 / 3500 3183 / 3183 Output Total 0 / 0 825 / 825 Balance 3500 / 3500 2358 / 2358 Weight (kg) 86.5 kg 86.5 kg Objective General Appearance: positive No acute distress and Lethargic Eyes Bilateral: positive PERRL, EOMI and No scleral icterus ENT: positive Dry mucous membranes Neck: positive Lymphadenopathy (R) (Shotty) and Lymphadenopathy (L) (Shotty) Respiratory: positive No respiratory distress and Breath sounds nml Cardiovascular: positive Regular rate & rhythm and Tachycardia Abdomen: positive Non-tender, No organomegaly and Nml bowel sounds Skin: positive No rash, Warm and Dry Extremities: positive Non-tender and Full ROM Neurologic/Psychiatric: positive CN's nml (2-12), Motor nml (Last night he was described as tremulous in the emergency room and on admitting physical exam. This morning, at rest (while asleep), no tremors. When I wake him up some of the tremors come back in his hands) and Disoriented to time Lab Results 08/11/24 05:47 08/11/24 05:47 Other Labs: Lab Results x24hrs 08/11/24 08/11/24 08/10/24 Range/Units 13:17 05:47 22:53 WBC 11.9 H (4.8-10.8) x10^3/uL RBC 3.10 L (4.70-6.10) 10^6/uL Hgb 10.2 L (14.0-18.0) g/dL Hct 29.6 L (42.0-52.0) % MCV 95.5 H (80.0-94.0) fL MCH 32.9 H (27.0-31.0) pg MCHC 34.5 (32.0-36.0) g/dL RDW 14.8 (12.0-15.0) % Plt Count 138 (130-450) 10^3/uL MPV 11.5 H (7.4-11.4) fL Neut # (Auto) Not Reportable (1.5-6.6) 10^3/uL Lymph # (Auto) Not Reportable (1.5-3.5) 10^3/uL [place] # (Auto) Not Reportable (0.0-1.0) 10^3/uL Eos # (Auto) Not Reportable (0.0-0.7) 10^3/uL Baso # (Auto) Not Reportable (0.0-0.1) 10^3/uL Absolute Nucleated RBC Not Reportable x10^3/uL Total Counted 100 Band Neuts % (Manual) 4 (0 - 10) % Abnorm Lymph % (Manual) 0 % Metamyelocytes % 2 H ( - 0) % Nucleated RBC % Not Reportable /100WBC Neutrophils # (Manual) 9.5 H (1.5-6.6) 10^3/uL Lymphocytes # (Manual) 1.3 L (1.5-3.5) 10^3/uL Monocytes # (Manual) 0.8 (0.0-1.0) 10^3/uL Eosinophils # (Manual) 0.0 (0-0.7) 10^3/uL Basophils # (Manual) 0.0 (0-0.1) 10^3/uL Differential Comment MANUAL DIFFERENTIAL WBC Morphology NORMAL APPEARANCE (NORMAL) Platelet Estimate NORMAL (130-450,000) (NORMAL) Platelet Morphology NORMAL APPEARANCE (NORMAL) RBC Morph Micro Appear NORMAL APPEARANCE (NORMAL) PT (9.9-12.6) secs INR (0.8-1.2) VBG pH 7.444 H (7.31-7.41) Ionized Calcium 1.05 L (1.15-1.33) mmol/L Sodium 132 L (135-145) mmol/L Potassium 3.5 (3.5-4.5) mmol/L Chloride 100 L (101-111) mmol/L Carbon Dioxide 26 (21-32) mmol/L Anion Gap 6.0 (6-13) BUN 20 (6-20) mg/dL Creatinine 0.8 (0.6-1.3) mg/dL Estimated GFR (MDRD) 99 (>89) Glucose 117 H (74-104) mg/dL Estimat Average Glucose 105 H (70-100) mg/dL Hemoglobin A1c % 5.3 (4.27-6.07) % Lactic Acid 0.9 (0.5-2.2) mmol/L Calcium 8.1 L (8.5-10.3) mg/dL Phosphorus 3.8 (2.5-5.0) mg/dL Magnesium 1.8 (1.7-2.3) mg/dL Total Bilirubin 1.4 H (0.2-1.0) mg/dL AST 255 H (10-42) IU/L ALT 70 H (10-60) IU/L Alkaline Phosphatase 92 (42-121) IU/L Total Protein 5.8 L (6.4-8.9) g/dL Albumin 2.5 L (3.2-5.5) g/dL Globulin 3.3 (2.1-4.2) g/dL Albumin/Globulin Ratio 0.8 L (1.0-2.2) Vitamin B12 431 (180-914) pg/mL Folate 3.6 L (5.90 - >24.8) ng/mL Nasal Adenovirus (PCR) Nasal B. parapertussis DNA (PCR) Nasal Coronavir 229E PCR Nasal Coronavir HKU1 PCR Nasal Coronavir NL63 PCR Nasal Coronavir OC43 PCR Nasal Enterovir/Rhinovir PCR Nasal Influenza B PCR Nasal Influenza A PCR Nasal Parainfluen 1 PCR Nasal Parainfluen 2 PCR Nasal Parainfluen 3 PCR Nasal Parainfluen 4 PCR Nasal RSV (PCR) Nasal Screen MRSA (PCR) NEGATIVE (NEGATIVE) Nasal B.pertussis DNA PCR Nasal C.pneumoniae (PCR) Alexandre Human Metapneumo PCR Nasal M.pneumoniae (PCR) Nasal SARS-CoV-2 (PCR) Urine Opiates Screen (NEGATIVE) Ur Buprenorphine Scrn (NEGATIVE) Ur Oxycodone Screen (NEGATIVE) Urine Methadone Screen (NEGATIVE) Acetaminophen ug/mL Ur Barbiturates Screen (NEGATIVE) Ur Tricyclics Screen (NEGATIVE) Ur Phencyclidine Scrn (NEGATIVE) Ur Amphetamine Screen (NEGATIVE) U Methamphetamines Scrn (NEGATIVE) U Benzodiazepines Scrn (NEGATIVE) Urine Cocaine Screen (NEGATIVE) U Cannabinoids Screen (NEGATIVE) Ur Drug Screen Comment Ethyl Alcohol mg/dL 08/10/24 08/10/24 08/10/24 Range/Units 19:28 18:41 18:37 WBC 13.6 H (4.8-10.8) x10^3/uL RBC 3.62 L (4.70-6.10) 10^6/uL Hgb 12.3 L (14.0-18.0) g/dL Hct 33.9 L (42.0-52.0) % MCV 93.6 (80.0-94.0) fL MCH 34.0 H (27.0-31.0) pg MCHC 36.3 H (32.0-36.0) g/dL RDW 14.6 (12.0-15.0) % Plt Count 155 (130-450) 10^3/uL MPV 11.6 H (7.4-11.4) fL Neut # (Auto) 11.7 H (1.5-6.6) 10^3/uL Lymph # (Auto) 0.7 L (1.5-3.5) 10^3/uL [place] # (Auto) 0.9 (0.0-1.0) 10^3/uL Eos # (Auto) 0.0 (0.0-0.7) 10^3/uL Baso # (Auto) 0.1 (0.0-0.1) 10^3/uL Absolute Nucleated RBC 0.00 x10^3/uL Total Counted Band Neuts % (Manual) (0 - 10) % Abnorm Lymph % (Manual) % Metamyelocytes % ( - 0) % Nucleated RBC % 0.0 /100WBC Neutrophils # (Manual) (1.5-6.6) 10^3/uL Lymphocytes # (Manual) (1.5-3.5) 10^3/uL Monocytes # (Manual) (0.0-1.0) 10^3/uL Eosinophils # (Manual) (0-0.7) 10^3/uL Basophils # (Manual) (0-0.1) 10^3/uL Differential Comment WBC Morphology (NORMAL) Platelet Estimate (NORMAL) Platelet Morphology (NORMAL) RBC Morph Micro Appear (NORMAL) PT 13.2 H (9.9-12.6) secs INR 1.2 (0.8-1.2) VBG pH (7.31-7.41) Ionized Calcium (1.15-1.33) mmol/L Sodium 129 L (135-145) mmol/L Potassium 4.2 (3.5-4.5) mmol/L Chloride 90 L (101-111) mmol/L Carbon Dioxide 28 (21-32) mmol/L Anion Gap 11.0 (6-13) BUN 22 H (6-20) mg/dL Creatinine 1.1 (0.6-1.3) mg/dL Estimated GFR (MDRD) 69 L (>89) Glucose 145 H (74-104) mg/dL Estimat Average Glucose (70-100) mg/dL Hemoglobin A1c % (4.27-6.07) % Lactic Acid 2.4 H (0.5-2.2) mmol/L Calcium 9.2 (8.5-10.3) mg/dL Phosphorus (2.5-5.0) mg/dL Magnesium 1.3 L (1.7-2.3) mg/dL Total Bilirubin 1.8 H (0.2-1.0) mg/dL AST 317 H (10-42) IU/L ALT 79 H (10-60) IU/L Alkaline Phosphatase 118 (42-121) IU/L Total Protein 7.5 (6.4-8.9) g/dL Albumin 3.2 (3.2-5.5) g/dL Globulin 4.3 H (2.1-4.2) g/dL Albumin/Globulin Ratio 0.7 L (1.0-2.2) Vitamin B12 (180-914) pg/mL Folate (5.90 - >24.8) ng/mL Nasal Adenovirus (PCR) Nasal B. parapertussis DNA (PCR) Nasal Coronavir 229E PCR Nasal Coronavir HKU1 PCR Nasal Coronavir NL63 PCR Nasal Coronavir OC43 PCR Nasal Enterovir/Rhinovir PCR Nasal Influenza B PCR Nasal Influenza A PCR Nasal Parainfluen 1 PCR Nasal Parainfluen 2 PCR Nasal Parainfluen 3 PCR Nasal Parainfluen 4 PCR Nasal RSV (PCR) Nasal Screen MRSA (PCR) (NEGATIVE) Nasal B.pertussis DNA PCR Nasal C.pneumoniae (PCR) Alexandre Human Metapneumo PCR Nasal M.pneumoniae (PCR) Nasal SARS-CoV-2 (PCR) Urine Opiates Screen NEGATIVE (NEGATIVE) Ur Buprenorphine Scrn NEGATIVE (NEGATIVE) Ur Oxycodone Screen NEGATIVE (NEGATIVE) Urine Methadone Screen NEGATIVE (NEGATIVE) Acetaminophen 1.4 ug/mL Ur Barbiturates Screen NEGATIVE (NEGATIVE) Ur Tricyclics Screen NEGATIVE (NEGATIVE) Ur Phencyclidine Scrn NEGATIVE (NEGATIVE) Ur Amphetamine Screen NEGATIVE (NEGATIVE) U Methamphetamines Scrn NEGATIVE (NEGATIVE) U Benzodiazepines Scrn POSITIVE H (NEGATIVE) Urine Cocaine Screen NEGATIVE (NEGATIVE) U Cannabinoids Screen NEGATIVE (NEGATIVE) Ur Drug Screen Comment CUTOFF CONC BELOW: Ethyl Alcohol < 10.0 mg/dL 08/10/24 Range/Units 18:19 WBC (4.8-10.8) x10^3/uL RBC (4.70-6.10) 10^6/uL Hgb (14.0-18.0) g/dL Hct (42.0-52.0) % MCV (80.0-94.0) fL MCH (27.0-31.0) pg MCHC (32.0-36.0) g/dL RDW (12.0-15.0) % Plt Count (130-450) 10^3/uL MPV (7.4-11.4) fL Neut # (Auto) (1.5-6.6) 10^3/uL Lymph # (Auto) (1.5-3.5) 10^3/uL [place] # (Auto) (0.0-1.0) 10^3/uL Eos # (Auto) (0.0-0.7) 10^3/uL Baso # (Auto) (0.0-0.1) 10^3/uL Absolute Nucleated RBC x10^3/uL Total Counted Band Neuts % (Manual) (0 - 10) % Abnorm Lymph % (Manual) % Metamyelocytes % ( - 0) % Nucleated RBC % /100WBC Neutrophils # (Manual) (1.5-6.6) 10^3/uL Lymphocytes # (Manual) (1.5-3.5) 10^3/uL Monocytes # (Manual) (0.0-1.0) 10^3/uL Eosinophils # (Manual) (0-0.7) 10^3/uL Basophils # (Manual) (0-0.1) 10^3/uL Differential Comment WBC Morphology (NORMAL) Platelet Estimate (NORMAL) Platelet Morphology (NORMAL) RBC Morph Micro Appear (NORMAL) PT (9.9-12.6) secs INR (0.8-1.2) VBG pH (7.31-7.41) Ionized Calcium (1.15-1.33) mmol/L Sodium (135-145) mmol/L Potassium (3.5-4.5) mmol/L Chloride (101-111) mmol/L Carbon Dioxide (21-32) mmol/L Anion Gap (6-13) BUN (6-20) mg/dL Creatinine (0.6-1.3) mg/dL Estimated GFR (MDRD) (>89) Glucose (74-104) mg/dL Estimat Average Glucose (70-100) mg/dL Hemoglobin A1c % (4.27-6.07) % Lactic Acid (0.5-2.2) mmol/L Calcium (8.5-10.3) mg/dL Phosphorus (2.5-5.0) mg/dL Magnesium (1.7-2.3) mg/dL Total Bilirubin (0.2-1.0) mg/dL AST (10-42) IU/L ALT (10-60) IU/L Alkaline Phosphatase (42-121) IU/L Total Protein (6.4-8.9) g/dL Albumin (3.2-5.5) g/dL Globulin (2.1-4.2) g/dL Albumin/Globulin Ratio (1.0-2.2) Vitamin B12 (180-914) pg/mL Folate (5.90 - >24.8) ng/mL Nasal Adenovirus (PCR) NOT DETECTED Nasal B. parapertussis DNA (PCR) NOT DETECTED Nasal Coronavir 229E PCR NOT DETECTED Nasal Coronavir HKU1 PCR NOT DETECTED Nasal Coronavir NL63 PCR NOT DETECTED Nasal Coronavir OC43 PCR NOT DETECTED Nasal Enterovir/Rhinovir PCR DETECTED A Nasal Influenza B PCR NOT DETECTED Nasal Influenza A PCR NOT DETECTED Nasal Parainfluen 1 PCR NOT DETECTED Nasal Parainfluen 2 PCR NOT DETECTED Nasal Parainfluen 3 PCR NOT DETECTED Nasal Parainfluen 4 PCR NOT DETECTED Nasal RSV (PCR) NOT DETECTED Nasal Screen MRSA (PCR) (NEGATIVE) Nasal B.pertussis DNA PCR NOT DETECTED Nasal C.pneumoniae (PCR) NOT DETECTED Alexandre Human Metapneumo PCR NOT DETECTED Nasal M.pneumoniae (PCR) NOT DETECTED Nasal SARS-CoV-2 (PCR) NOT DETECTED Urine Opiates Screen (NEGATIVE) Ur Buprenorphine Scrn (NEGATIVE) Ur Oxycodone Screen (NEGATIVE) Urine Methadone Screen (NEGATIVE) Acetaminophen ug/mL Ur Barbiturates Screen (NEGATIVE) Ur Tricyclics Screen (NEGATIVE) Ur Phencyclidine Scrn (NEGATIVE) Ur Amphetamine Screen (NEGATIVE) U Methamphetamines Scrn (NEGATIVE) U Benzodiazepines Scrn (NEGATIVE) Urine Cocaine Screen (NEGATIVE) U Cannabinoids Screen (NEGATIVE) Ur Drug Screen Comment Ethyl Alcohol mg/dL Other Results/Comments Other Results/Comments: EkG was done last night but not interpreted. I read it as NSR with tachycardia. Nml axis. NSSTW changes. ABX Reporting Has patient been on IV antibiotics over the past 48 hours?: Yes Sepsis Event Note (H) Evaluation Current Stage of Sepsis: Severe sepsis Possible source of Sepsis: positive Pulmonary (Middle lobe pneumonia) Sepsis Criteria Sepsis Criteria: Recorded Temperature greater than 38.3C or Less than 36C, Recorded Heart Rate greater than 90 bpm, Respiratory: Increasing oxygen requirements, WBC count greater than 12,000 or less than 4000, MAP less than 65 mmHg, SBP less than 90 mmHg and Metabolic: lactate > 2 mmol/L Assessment/Plan Problem List (1) Severe sepsis: Impression: Blood pressure in the emergency room was as low as 87/66. He required IV fluids for resuscitation and was started on Unasyn and vancomycin. This morning blood pressure is 104/65 still still mildly hypotensive in comparison to baseline blood pressure that is 120/80 or as high as 130/88. White cell count is still elevated. However he has not at the cutoff for sepsis criteria with a white cell count greater than 12,000. He was 16,000 last night and he is 11,000 this morning. Respiration rate was 30 last night. And he is as high as 36 this morning at 10 AM. They be more driven by alcohol withdrawal than sepsis but it is still being monitored. And the patient is still requiring oxygen. Pulse this morning is 98. In the emergency room he was 111. It is equivocal as far as I am concerned to state that this is from infection or withdrawal.However he appears comfortable with the benzodiazepines at this time. Lactic acid was 2.4 last night. Repeat will be ordered by me this morning to assess response. Last night his temperature max was 39.7. This morning he is 36.3 so he is improved with that. Overall, he has improved from last night with regards to fever and white cell count. However I cannot say that sepsis has resolved at this time. He still meets some of the criteria. My plan is to continue to treat the source, which is pneumonia. See below. (2) Pneumonia: Impression: Patient presents as cough, shortness of breath and fever from a drug rehab withdrawal facility. Right middle lobe infiltrate identified on chest x-ray leads me to believe there may be some element of aspiration. This is also in a patient has a history of seizures from alcohol withdrawal. He is not on the pneumonia pathway with regards to community-acquired pneumonia and telehealth decided to treat as possible immunocompromised or healthcare facility pneumonia. Objective data today shows him to have improved somewhat from yesterday. White cell count has responded. But he is still relatively hypotensive, tachycardic. No further fever since last night. Blood cultures are positive for gram-positive cocci in chains. This leads me to think that he may have strep pneumonia. Plan: Continue Unasyn.However, while Unasyn cover Streptococcus quite well in bone and soft tissue infection, it is an off label use for lower respiratory tract infections. It does exhibit higher efficacy compared to various third- generation cephalosporins such as cefuroxime and cefotaxime, second-generation cephalosporins such as cefoxitin, but not usually used for Streptococcus. Pharmacist and I discussed this. We debated whether I wanted to start empiric vancomycin for mrsa. At this time I am holding off on vancomycin, hoping that the empiric Unasyn will cover this organism. However PCR identification of the bacteria will cause me to change my management . Repeat blood cultures today. Since he is able to take po, I will stop IVF for maintenance especially in view of nationwide shortage Qualifiers: Pneumonia type: due to unspecified organism (3) Elevated lactic acid level: Impression: Repeat lactic acid today (4) Alcohol withdrawal: Impression: Because he is septic, I cannot tell that if tachycardia is from withdrawal or from sepsis. He is slightly tremulous but improved from last night. He is hypotensive and I attribute that to the sepsis because he should be hypertensive with his alcohol withdrawal. I will continue the thiamine 100 mg a day. vitamin once a day. I usually do order a banana bag. That was ordered last night. I will not continue that at this time because of the national IV fluids shortage. He is taking p.o. adequately. Ativan 2 mg last night at 7 PM. And then another dose at 8:30 PM. No dose required so far this morning per CIWA Plan: Continue CIWA protocol with I will start Librium 5 mg p.o. 3 times daily Qualifiers: Complication of substance-induced condition: uncomplicated Qualified Code(s): F10.930 - Alcohol use, unspecified with withdrawal, uncomplicated (5) Nicotine dependence with withdrawal: Impression: I will order Nicotine patch. 21 mg Qualifiers: Nicotine product type: cigarettes Qualified Code(s): F17.213 - Nicotine dependence, cigarettes, with withdrawal
[2024-08-11] MEDS: chlordiazePOXIDE 5 MG CAPSULE PO SCH ×2 (15:14→19:52)
[2024-08-11] MEDS: NICOTINE 21 MG PATCH TOP SCH (15:14)
[2024-08-11] MEDS: ACETAMINOPHEN 325 MG TABLET PO PRN (16:30)
[2024-08-11] MEDS: LORazepam 2 MG/ML VIAL IVP PRN (16:30)
--- NOTE | 2024-08-11 16:50 | PHARMACY PROGRESS NOTE ---
Best Possible Medication History Admit Date and Time: 08/10/24 3411 Processed by: Pharmacy Medications reviewed in ED?: Yes Medication History completed: Yes Patient Interview: Completed Secondary Source(s): Pharmacy records and Insurance records [facility] Statement: As the person ultimately responsible for medication therapy, providers are able to order a medication from an existing home medication list in [facility] via the "Reconcile Routine" prior to Confirmation of that medication by is support analyst. Such practice is discouraged except when the physician, in their clinical judgment, deems that a medical need exists for a medication without regard to previous use.
[2024-08-12 04:25] LABS: BASOPHILS % (AUTO) 0.5 %; EOSINOPHILS % (AUTO) 0.5 %; HCT - HEMATOCRIT 27.9 % (42.0-52.0); HGB - HEMOGLOBIN 9.7 g/dL (14.0-18.0); MEAN CORPUSCULAR HEMOGLOBIN 33.4 pg (27.0-31.0); MEAN CORPUSCULAR HGB CONC 34.8 g/dL (32.0-36.0); MEAN CORPUSCULAR VOLUME 96.2 fL (80.0-94.0); MEAN PLATELET VOLUME 11.8 fL (7.4-11.4); MONOCYTES % (AUTO) 8.6 %; NEUTROPHILS % (AUTO) 74.8 %; PLT - PLATELET COUNT 160 10^3/uL (130-450); RED CELL DISTRIBUTION WIDTH 14.9 % (12.0-15.0); WHITE BLOOD COUNT 11.3 x10^3/uL (4.8-10.8)
[2024-08-12 04:28] LABS: CALCIUM, IONIZED 1.08 mmol/L (1.15-1.33); VBG PH 7.442 (7.31-7.41)
[2024-08-12 04:30] LABS: ABNORMAL LYMPHS % (MANUAL) 0 %; BAND NEUTROPHILS % (MANUAL) 0 %
[2024-08-12 04:42] LABS: ALBUMIN 2.4 g/dL (3.2-5.5); ALBUMIN/GLOBULIN RATIO 0.8 (1.0-2.2); BILIRUBIN,TOTAL 0.7 mg/dL (0.2-1.0); CALCIUM 8.1 mg/dL (8.5-10.3); CREATININE 0.8 mg/dL (0.6-1.3); MAGNESIUM 1.6 mg/dL (1.7-2.3); POTASSIUM 3.4 mmol/L (3.5-4.5); TOTAL PROTEIN 5.5 g/dL (6.4-8.9)
[2024-08-12 04:51] LABS: BASOPHILS # (MANUAL) 0.1 10^3/uL (0-0.1); BASOPHILS % (MANUAL) 1 %; EOSINOPHILS # (MANUAL) 0.1 10^3/uL (0-0.7); LYMPHOCYTES # (MANUAL) 1.5 10^3/uL (1.5-3.5); LYMPHOCYTES % (MANUAL) 13 %; MONOCYTES # (MANUAL) 0.7 10^3/uL (0.0-1.0); MYELOCYTES % (MANUAL) 1 %; NEUTROPHILS # (MANUAL) 8.8 10^3/uL (1.5-6.6)
[2024-08-12 04:52] LABS: DIFFERENTIAL COMMENT MANUAL DIFFERENTIAL; PLATELET ESTIMATE, MANUAL NORMAL (130-450,000) (NORMAL); PLATELET MORPHOLOGY NORMAL APPEARANCE (NORMAL); RBC MORPHOLOGY (MULTIPLE) NORMAL APPEARANCE (NORMAL); WBC MORPHOLOGY (MULTIPLE) NORMAL APPEARANCE (NORMAL)
[2024-08-12] MEDS: CALCIUM GLUC 1,000MG/50ML-NACL 1,000 MG/50 ML BAG IV ONE ×3 (05:21→23:38)
[2024-08-12] MEDS: MAGNESIUM SULFATE 2 GRAM 2 GM/50 ML BAG IV ONE ×3 (05:22→22:48)
[2024-08-12] MEDS: POTASSIUM CHLOR 10 MEQ/100 ML 10 MEQ/100 ML BAG IV SCH ×3 (07:49→22:47)
[2024-08-12] MEDS: POTASSIUM PHOSPHATE 15 MMOL in SODIUM CHLORIDE 0.9% 250 ML IV ONE (07:51)
[2024-08-12] MEDS: SODIUM CHLORIDE FLUSH 0.9% 10 ML SYRINGE IVP PRN (07:55)
[2024-08-12 08:35] LABS: ABG BASE EXCESS 1.5 mmol/L (-2.0-3.0); ABG HCO3 25.5 mmol/L (22.0-26.0); ABG OXYGEN SATURATION 97 % (94-98); ABG PCO2 38 mmHg (34-45); ABG PH 7.45 (7.35-7.45); ABG PO2 92 mmHg (80-100); ABG TCO2 26.7 MMOL/L (21.0-29.0); ALLEN TEST POSITIVE
[2024-08-12 09:05] LABS: VBG PH 7.46 (7.31-7.41)
[2024-08-12 09:06] LABS: CALCIUM, IONIZED 1.1 mmol/L (1.15-1.33)
[2024-08-12 12:56] LABS: CALCIUM, IONIZED 1.07 mmol/L (1.15-1.33); VBG PH 7.468 (7.31-7.41)
[2024-08-12 13:08] LABS: MAGNESIUM 1.6 mg/dL (1.7-2.3); PHOSPHORUS 3.6 mg/dL (2.5-5.0); POTASSIUM 3.7 mmol/L (3.5-4.5)
[2024-08-12] MEDS ORDERED: POTASSIUM CHLOR 20 MEQ/100 ML 20 MEQ/100 ML BAG IV ONE (13:36)
[2024-08-12] MEDS: cefTRIAXone 2 GM VIAL IVP SCH (14:19)
--- NOTE | 2024-08-12 14:19 | PROVIDER PROGRESS NOTE ---
Subjective Prog Note Date Prog Note Date: 08/12/24 Prog Note Time: 14:18 Subjective Subjective: Yesterday afternoon, I thought he was through the worst of it and could possibly transfer him to [facility]. Overnight he has become more tachycardic, more hypertensive. More confused. Hallucinating. He is seeing things that cannot describe but it is agitating him. He is picking at things and is pulled out his IV. He received 24 mg of Ativan. This morning his CIWA score was 11-12 and he received another 2 mg. I will increase his Librium from 5 to 10 mg yesterday. His oxygen requirement is increasing. His blood cultures have now been identified as strep pneumonia. Current Medications Current Medications Current Medications: Current Medications Generic Name Dose Route Start Last Admin Trade Name Freq PRN Reason Stop Dose Admin Acetaminophen 650 mg 08/10/24 21:53 08/12/24 01:25 Acetaminophen 325 Mg Tablet PO 650 mg Q4HR PRN Administration Pain 1 to 4, or Fever Albuterol 2.5 mg 08/10/24 21:53 Albuterol Neb 2.5 Mg/3 Ml INH Q4HR PRN Wheezing Ceftriaxone Sodium 2 gm 08/12/24 13:33 Ceftriaxone 2 Gm Vial IVP DAILY SOLIS Chlordiazepoxide HCl 25 mg 08/12/24 18:00 Chlordiazepoxide 25 Mg Capsule PO Q6HR SOLIS Heparin Sodium (Porcine) 5,000 unit 08/11/24 09:00 08/12/24 08:56 Heparin 5,000 Unit/Ml Vial SUBQ 5,000 unit BID SOLIS Administration Sodium Chloride 1,000 mls @ 100 mls/hr 08/10/24 22:00 08/12/24 13:33 Normal Saline 0.9% IV 100 mls/hr .Q10H SOLIS Administration CALCIUM GLUC 1,000MG/50ML-NACL 1,000 mg in 50 mls @ 50 mls/hr 08/12/24 13:36 Calcium Gluc 1,000mg/50ml-Nacl IV 08/12/24 14:35 ONCE ONE Protocol Magnesium Sulfate 2 gm in 50 mls @ 50 mls/hr 08/12/24 13:36 Magnesium Sulfate IV 08/12/24 14:35 ONCE ONE Protocol Potassium Chloride 10 meq in 100 mls @ 100 mls/hr 08/12/24 14:00 Potassium Chloride IV 08/12/24 15:59 Q1H SOLIS Ibuprofen 400 mg 08/12/24 13:39 Ibuprofen 200 Mg/10 Ml Udc PO Q6H PRN Fever >101 Ipratropium [place] 0.5 mg 08/10/24 21:53 Ipratropium 0.2 Mg/Ml Neb INH Q6HR PRN Wheezing Lorazepam 2 - 20 mg 08/10/24 21:47 08/12/24 13:03 Lorazepam 2 Mg/Ml Vial IVP 2 mg Q15M PRN Administration RASS > 0 Protocol Nicotine 1 patch 08/11/24 14:31 08/12/24 08:57 Nicotine 21 Mg Patch TOP 1 patch DAILY SOLIS Administration Ondansetron HCl 4 mg 08/10/24 21:53 Ondansetron Odt 4 Mg Tablet TL Q6HR PRN Nausea / Vomiting Ondansetron HCl 4 mg 08/10/24 21:53 Ondansetron 4 Mg/2 Ml Vial IVP Q6HR PRN Nausea / Vomiting Pantoprazole Sodium 40 mg 08/11/24 07:00 08/12/24 06:07 Pantoprazole 40 Mg Vial IVP 40 mg QDAC SOLIS Administration Multivit/Folic Acid/Iron 1 tab 08/11/24 09:00 08/12/24 08:56 Vitamin Tablet PO 1 tab DAILY SOLIS Administration Sodium Chloride 10 ml 08/11/24 01:00 08/12/24 08:57 Sodium Chloride Flush 0.9% 10 Ml Syringe IVP 10 ml 0100,0900,1700 SOLIS Administration Sodium Chloride 10 ml 08/10/24 21:53 08/12/24 07:56 Sodium Chloride Flush 0.9% 10 Ml Syringe IVP 10 ml PRN PRN Administration NEEDED PER PROVIDER ORDERS Thiamine HCl 100 mg 08/11/24 09:00 08/12/24 08:56 Thiamine 100 Mg Tablet PO 100 mg DAILY SOLIS Administration Objective Vital Signs/Intake & Output Reviewed Vital Signs: Yes Vital Signs: Vital Signs x48h Temp Pulse Resp BP Pulse Ox O2 Flow Rate 08/12/24 14:00 38.3 C H 112 H 28 H 145/94 H 93 3 08/12/24 13:00 38 C H 111 H 24 149/93 H 96 3 08/12/24 12:00 106 H 26 H 142/99 H 94 4 08/12/24 11:00 37.8 C 107 H 55 H 142/90 H 96 5 08/12/24 11:00 37.8 C 107 H 30 H 142/51 H 96 4 08/12/24 10:00 111 H 28 H 124/75 95 5 08/12/24 09:00 109 H 39 H 130/79 93 5 08/12/24 08:30 5 08/12/24 08:00 37.1 C 108 H 20 118/78 95 5 08/12/24 07:00 102 H 31 H 143/88 H 92 5 Intake & Output: Intake & Output 08/10/24 08/11/24 08/12/24 08/13/24 05:59 05:59 05:59 05:59 Intake Total 3500 / 3500 5243 / 5243 1515 / 1515 Output Total 0 / 0 970 / 970 200 / 200 Balance 3500 / 3500 4273 / 4273 1315 / 1315 Weight (kg) 86.5 kg 86.5 kg 86 kg Objective General Appearance: positive Moderate distress (From agitation and tachypnea. At 1 point his breath was 40 a minute) and Anxious Eyes Bilateral: positive PERRL and EOMI ENT: positive No signs of dehydration Neck: positive Nml inspection, Lymphadenopathy (R) (Shotty) and Lymphadenopathy (L) (Shotty) Respiratory: positive Rales, Rhonchi and Other (harsh inspiratory whistle over L anterior chest, tactile fremitus front of L chest, tachypneic) Cardiovascular: positive Regular rate & rhythm, Tachycardia and Other (fast pounding PMI) Abdomen: positive Non-tender, No organomegaly and Nml bowel sounds Skin: positive Diaphoresis and Pallor Extremities: positive Full ROM and Nml appearance Neurologic/Psychiatric: positive Disoriented to place and Disoriented to time; negative Motor nml (tremulous) Lab Results 08/12/24 04:14 08/12/24 12:48 Other Labs: Lab Results x24hrs 08/12/24 08/12/24 08/12/24 Range/Units 12:48 08:53 08:25 WBC (4.8-10.8) x10^3/uL RBC (4.70-6.10) 10^6/uL Hgb (14.0-18.0) g/dL Hct (42.0-52.0) % MCV (80.0-94.0) fL MCH (27.0-31.0) pg MCHC (32.0-36.0) g/dL RDW (12.0-15.0) % Plt Count (130-450) 10^3/uL MPV (7.4-11.4) fL Neut # (Auto) Lymph # (Auto) [place] # (Auto) Eos # (Auto) Baso # (Auto) Absolute Nucleated RBC Total Counted Band Neuts % (Manual) (0 - 10) % Abnorm Lymph % (Manual) % Myelocytes % ( - 0) % Nucleated RBC % Neutrophils # (Manual) (1.5-6.6) 10^3/uL Lymphocytes # (Manual) (1.5-3.5) 10^3/uL Monocytes # (Manual) (0.0-1.0) 10^3/uL Eosinophils # (Manual) (0-0.7) 10^3/uL Basophils # (Manual) (0-0.1) 10^3/uL Differential Comment WBC Morphology (NORMAL) Platelet Estimate (NORMAL) Platelet Morphology (NORMAL) RBC Morph Micro Appear (NORMAL) Bld Gas Analysis Time 0825 Sample Site LEFT RADIAL ABG pH 7.45 (7.35-7.45) ABG pCO2 38 (34-45) mmHg ABG pO2 92 (80-100) mmHg ABG HCO3 25.5 (22.0-26.0) mmol/L ABG Total CO2 26.7 (21.0-29.0) MMOL/L ABG O2 Saturation 97 (94-98) % ABG Base Excess 1.5 (-2.0-3.0) mmol/L Janes Test POSITIVE VBG pH 7.468 H 7.460 H (7.31-7.41) Ionized Calcium 1.07 L 1.10 L (1.15-1.33) mmol/L O2 Delivery Device NASAL CANNULA O2 Liters/Min 5.00 LPM Sodium (135-145) mmol/L Potassium 3.7 (3.5-4.5) mmol/L Chloride (101-111) mmol/L Carbon Dioxide (21-32) mmol/L Anion Gap (6-13) BUN (6-20) mg/dL Creatinine (0.6-1.3) mg/dL Estimated GFR (MDRD) (>89) Glucose (74-104) mg/dL Calcium (8.5-10.3) mg/dL Phosphorus 3.6 (2.5-5.0) mg/dL Magnesium 1.6 L 1.8 (1.7-2.3) mg/dL Total Bilirubin (0.2-1.0) mg/dL AST (10-42) IU/L ALT (10-60) IU/L Alkaline Phosphatase (42-121) IU/L Total Protein (6.4-8.9) g/dL Albumin (3.2-5.5) g/dL Globulin (2.1-4.2) g/dL Albumin/Globulin Ratio (1.0-2.2) 08/12/24 Range/Units 04:14 WBC 11.3 H (4.8-10.8) x10^3/uL RBC 2.90 L (4.70-6.10) 10^6/uL Hgb 9.7 L (14.0-18.0) g/dL Hct 27.9 L (42.0-52.0) % MCV 96.2 H (80.0-94.0) fL MCH 33.4 H (27.0-31.0) pg MCHC 34.8 (32.0-36.0) g/dL RDW 14.9 (12.0-15.0) % Plt Count 160 (130-450) 10^3/uL MPV 11.8 H (7.4-11.4) fL Neut # (Auto) Not Reportable Lymph # (Auto) Not Reportable [place] # (Auto) Not Reportable Eos # (Auto) Not Reportable Baso # (Auto) Not Reportable Absolute Nucleated RBC Not Reportable Total Counted 100 Band Neuts % (Manual) 0 (0 - 10) % Abnorm Lymph % (Manual) 0 % Myelocytes % 1 H ( - 0) % Nucleated RBC % Not Reportable Neutrophils # (Manual) 8.8 H (1.5-6.6) 10^3/uL Lymphocytes # (Manual) 1.5 (1.5-3.5) 10^3/uL Monocytes # (Manual) 0.7 (0.0-1.0) 10^3/uL Eosinophils # (Manual) 0.1 (0-0.7) 10^3/uL Basophils # (Manual) 0.1 (0-0.1) 10^3/uL Differential Comment MANUAL DIFFERENTIAL WBC Morphology NORMAL APPEARANCE (NORMAL) Platelet Estimate NORMAL (130-450,000) (NORMAL) Platelet Morphology NORMAL APPEARANCE (NORMAL) RBC Morph Micro Appear NORMAL APPEARANCE (NORMAL) Bld Gas Analysis Time Sample Site ABG pH (7.35-7.45) ABG pCO2 (34-45) mmHg ABG pO2 (80-100) mmHg ABG HCO3 (22.0-26.0) mmol/L ABG Total CO2 (21.0-29.0) MMOL/L ABG O2 Saturation (94-98) % ABG Base Excess (-2.0-3.0) mmol/L Janes Test VBG pH 7.442 H (7.31-7.41) Ionized Calcium 1.08 L (1.15-1.33) mmol/L O2 Delivery Device O2 Liters/Min LPM Sodium 133 L (135-145) mmol/L Potassium 3.4 L (3.5-4.5) mmol/L Chloride 101 (101-111) mmol/L Carbon Dioxide 25 (21-32) mmol/L Anion Gap 7.0 (6-13) BUN 16 (6-20) mg/dL Creatinine 0.8 (0.6-1.3) mg/dL Estimated GFR (MDRD) 99 (>89) Glucose 102 (74-104) mg/dL Calcium 8.1 L (8.5-10.3) mg/dL Phosphorus 2.4 L (2.5-5.0) mg/dL Magnesium 1.6 L (1.7-2.3) mg/dL Total Bilirubin 0.7 (0.2-1.0) mg/dL AST 181 H (10-42) IU/L ALT 58 (10-60) IU/L Alkaline Phosphatase 90 (42-121) IU/L Total Protein 5.5 L (6.4-8.9) g/dL Albumin 2.4 L (3.2-5.5) g/dL Globulin 3.1 (2.1-4.2) g/dL Albumin/Globulin Ratio 0.8 L (1.0-2.2) ABX Reporting Has patient been on IV antibiotics over the past 48 hours?: Yes Sepsis Event Note (H) Evaluation Current Stage of Sepsis: Severe sepsis Possible source of Sepsis: positive Pulmonary (Middle lobe pneumonia) Confirmed Source and Organism (if known) of Sepsis: strep pneumonia Sepsis Criteria Sepsis Criteria: Recorded Temperature greater than 38.3C or Less than 36C, Recorded Heart Rate greater than 90 bpm, Respiratory: Increasing oxygen requirements, WBC count greater than 12,000 or less than 4000, MAP less than 65 mmHg, SBP less than 90 mmHg and Metabolic: lactate > 2 mmol/L Assessment/Plan Problem List (1) Pneumonia: Impression: Patient presents as cough, shortness of breath and fever from a drug rehab withdrawal facility. Right middle lobe infiltrate identified on chest x-ray leads me to believe there may be some element of aspiration. On the I felt that he was responding to therapy. His white cell count had come down somewhat to 11.9. Today he is 11.3 days and not much better. Blood cultures are no definitive for strep pneumonia. 0% bands. Plan: Has not much improved since yesterday. In fact probably slightly worse and that temperature is 38.3 right now. Heart rate is 112. He is not hypotensive blood pressure is 145/94. I am switching his Unasyn to Rocephin 2 g. I did discuss this with pharmacy and wondered if we should be using penicillin but since he is an alcoholic, homeless, he may have resistance and I am decided to use Rocephin instead of penicillin. Did repeat his blood cultures on the to make sure he had bacteremia clearance. He has negative blood cultures from the . I will also order a chest xray to see if there is progression. He will complete minimum of 7 days of IV antibiotic therapy. At this point I am not ready to switch him over to p.o. but he is continued SIRS criteria Qualifiers: Pneumonia type: due to unspecified organism (2) Severe sepsis: Impression: Blood pressure in the emergency room was as low as 87/66. He required IV fluids for resuscitation and was started on Unasyn and vancomycin. 08/11 he was 104/65, still mildly hypotensive in comparison to baseline blood pressure that is 120/80 or as high as 130/88. Today his BP has gone up to 145/95. this may be improvement for his sepsis of continued alcohol withdrawal. White cell count is still elevated. No change from 08/11. However he has not at the cutoff for sepsis criteria with a white cell count greater than 12,000. He was 16,000 last night and he is 11,000 this morning. Respiration rate continues to be intermittently high. I ordered a blood gas to make sure he is not acidotic and driving his respiratory rate. He is pH was 7.44, pCO2 37.9, pO2 91.9 on 4 L. So this may be driven more by alcohol withdrawal than sepsis but it is still being monitored. I will not need to intubate for now. Pulse this morning is 112. It is equivocal as far as I am concerned to state that this is from infection or withdrawal.However he appears comfortable with the benzodiazepines at this time. Lactic acid was 2.4 last night. Repeat will be ordered by me this morning to assess response. Temperature max was 39.7>>36.3 yesterday>>38.3 today. I am adding motrin 400 mg to be given q6h but to alternate with tylenol so that he gets tylenol, 3 hours later motrin, 3 hours later tylenol, etc, etc. Although he had improved 08/11 with regards to fever and white cell count, I cannot say that sepsis has resolved at this time. He still meets some of the criteria. My plan is to continue to treat the source, which is pneumonia. I am changing his abx to Rocephin (3) Elevated lactic acid level: Impression: Resolved. repeat was 0.9 08/11. (4) Alcohol withdrawal: Impression: Because he is septic, I cannot tell that if tachycardia is from withdrawal or from sepsis. He is slightly tremulous but improved from last night. He is now hypertensive and was hypotensive and I attribute that to the withdrawal, because he should be hypertensive with his alcohol withdrawal. I will continue the thiamine 100 mg a day. vitamin once a day. I usually do order a banana bag. That was ordered for 1 bag and now on oral supplements. I will not continue IV banana bag at this time because of the national IV fluids shortage. He is taking p.o. adequately. Ativan was 24 mg last night. And this morning another 2 mg.Triple use that he had yesterday. Plan: Continue CIWA protocol with I will increase Librium from 10 mg to 25 mg p.o. 3 times daily Qualifiers: Complication of substance-induced condition: uncomplicated Qualified Code(s): F10.930 - Alcohol use, unspecified with withdrawal, uncomplicated (5) Nicotine dependence with withdrawal: Impression: I ordered Nicotine patch. 21 mg Qualifiers: Nicotine product type: cigarettes Qualified Code(s): F17.213 - Nicotine dependence, cigarettes, with withdrawal
[2024-08-12] MEDS: IBUPROFEN 200 MG/10 ML UDC PO PRN (14:21)
[2024-08-12] MEDS: chlordiazePOXIDE 25 MG CAPSULE PO SCH (18:25)
[2024-08-12 19:21] LABS: CALCIUM, IONIZED 1.09 mmol/L (1.15-1.33); VBG PH 7.485 (7.31-7.41)
[2024-08-12 19:35] LABS: MAGNESIUM 1.7 mg/dL (1.7-2.3); POTASSIUM 3.5 mmol/L (3.5-4.5)
[2024-08-13 04:42] LABS: BASOPHILS % (AUTO) 0.8 %; CALCIUM, IONIZED 1.06 mmol/L (1.15-1.33); HCT - HEMATOCRIT 28.8 % (42.0-52.0); HGB - HEMOGLOBIN 9.6 g/dL (14.0-18.0); LYMPHOCYTES % (AUTO) 11.1 %; MEAN CORPUSCULAR HGB CONC 33.3 g/dL (32.0-36.0); MEAN PLATELET VOLUME 11.6 fL (7.4-11.4); MONOCYTES % (AUTO) 10.5 %; NEUTROPHILS % (AUTO) 70.5 %; PLT - PLATELET COUNT 223 10^3/uL (130-450); VBG PH 7.472 (7.31-7.41); WHITE BLOOD COUNT 11.6 x10^3/uL (4.8-10.8)
[2024-08-13 04:46] LABS: ABNORMAL LYMPHS % (MANUAL) 0 %
[2024-08-13 04:57] LABS: MAGNESIUM 1.6 mg/dL (1.7-2.3)
[2024-08-13 05:03] LABS: ALBUMIN 2.3 g/dL (3.2-5.5); ALBUMIN/GLOBULIN RATIO 0.7 (1.0-2.2); BILIRUBIN,TOTAL 0.6 mg/dL (0.2-1.0); CALCIUM 8.3 mg/dL (8.5-10.3); CREATININE 0.7 mg/dL (0.6-1.3); PHOSPHORUS 4.4 mg/dL (2.5-5.0); POTASSIUM 3.7 mmol/L (3.5-4.5); TOTAL PROTEIN 5.6 g/dL (6.4-8.9)
[2024-08-13 06:06] LABS: BAND NEUTROPHILS % (MANUAL) 5 %; LYMPHOCYTES # (MANUAL) 2.3 10^3/uL (1.5-3.5); LYMPHOCYTES % (MANUAL) 20 %; METAMYELOCYTES % (MANUAL) 1 %; MONOCYTES # (MANUAL) 0.8 10^3/uL (0.0-1.0); MYELOCYTES % (MANUAL) 1 %; NEUTROPHILS # (MANUAL) 8.2 10^3/uL (1.5-6.6)
[2024-08-13 06:07] LABS: DIFFERENTIAL COMMENT MANUAL DIFFERENTIAL; PLATELET ESTIMATE, MANUAL NORMAL (130-450,000) (NORMAL); RBC MORPHOLOGY (MULTIPLE) NORMAL APPEARANCE (NORMAL)
[2024-08-13] MEDS: CALCIUM GLUC 1,000MG/50ML-NACL 1,000 MG/50 ML BAG IV ONE ×2 (06:18→17:12)
[2024-08-13] MEDS: MAGNESIUM SULFATE 2 GRAM 2 GM/50 ML BAG IV ONE (06:18)
[2024-08-13] MEDS: POTASSIUM CHLOR 10 MEQ/100 ML 10 MEQ/100 ML BAG IV SCH (06:39)
[2024-08-13] MEDS: ACETAMINOPHEN 1,000 MG/100 ML 1,000 MG/100 ML BAG IV PRN (09:33)
[2024-08-13] MEDS: THIAMINE INJ 100 MG, FOLIC ACID INJ 1 MG in SODIUM CHLORIDE 0.9% 1,000 ML IV SCH (11:15)
[2024-08-13] MEDS: MAGNESIUM SULFATE 1 GM in SODIUM CHLORIDE 0.9% 50 ML IV ONE (11:15)
[2024-08-13] MEDS: metroNIDAZOLE 500 MG/100 ML 500 MG/100 ML BAG IV SCH (11:22)
[2024-08-13] MEDS: FUROSEMIDE 40 MG/4 ML VIAL IVP SCH (11:22)
--- NOTE | 2024-08-13 12:07 | PROVIDER PROGRESS NOTE ---
Subjective Prog Note Date Prog Note Date: 08/13/24 Prog Note Time: 11:52 Subjective Subjective: H&P was conducted via video remotely, using [employer]. [facility] [place] [facility]. Phys[place] is [place] [facility]. HEAD BOOKKEEPER is at bedside. Unable to obtain history from pt d/t pt's clinical condition/drowsiness. RN reports that he just received another dose of Ativan. History obtained from staff, chart. 59 yo M with PMH of ETOH abuse with h/o withdrawal seizures and Tobacco use presented to the ER from a local ETOH Detox facility for c/o 1 day h/o Fever, SOB, cough. Pt has a long h/o ETOH abuse with previous hospitalizations and rehab facility stays. Pt admitted himself to alcohol withdrawal facility yesterday. His last drink was just prior to going to the facility. Pt received Ativan for tremors at 1300 today. He continued to have tremors and the staff noticed that he was coughing, had SOB, and checked his temp, which was 103F, so they sent him to the ER. In the ER, pt was reportedly tremulous, anxious and A+Ox3. His CIWA score was 20. He has since received Ativan IV and now is drowsy and unable to answer questions or follow commands. Pt had denied seizure, but he does have h/o withdrawal sz. He had denied N/V/abdo pain. HR 120-140, RR 30, T38.2C, SpO2 93% 2L NC O2 WBC 13.5, LA 2.4, Hgb 12.3, MCH 34, Na 129, Glc 145, AST 317, ALT 79, Mg 1.3, ETOH<10, BC x 2 pending Viral pathogen: Rhinovirus + CXR: R middle lobe infiltrate Pt has received Tylenol, Thiamine, Mag SO4 2 gm IV, Folate, Zofran, IVF x 3L, Ativan 5 mg IV, Rocephin/Vanco in the ER. 08/13/2024: Overnight pt became more lethargic and obtuse. Today pt is difficult to awake, unabale to follow commands. Tachycardia and breathing in the high 20s. Current Medications Current Medications Current Medications: Current Medications Generic Name Dose Route Start Last Admin Trade Name Freq PRN Reason Stop Dose Admin Acetaminophen 650 mg 08/10/24 21:53 08/12/24 22:48 Acetaminophen 325 Mg Tablet PO 650 mg Q4HR PRN Administration Pain 1 to 4, or Fever Albuterol 2.5 mg 08/10/24 21:53 Albuterol Neb 2.5 Mg/3 Ml INH Q4HR PRN Wheezing Ceftriaxone Sodium 2 gm 08/12/24 13:33 08/13/24 09:20 Ceftriaxone 2 Gm Vial IVP 2 gm DAILY SOLIS Administration Chlordiazepoxide HCl 25 mg 08/12/24 18:00 08/13/24 06:20 Chlordiazepoxide 25 Mg Capsule PO 25 mg Q6HR SOLIS Administration Furosemide 40 mg 08/13/24 11:00 08/13/24 11:22 Furosemide 40 Mg/4 Ml Vial IVP 40 mg DAILY SOLIS Administration Heparin Sodium (Porcine) 5,000 unit 08/11/24 09:00 08/13/24 09:21 Heparin 5,000 Unit/Ml Vial SUBQ 5,000 unit BID SOLIS Administration Acetaminophen 1,000 mg in 100 mls @ 400 mls/hr 08/13/24 08:52 08/13/24 09:33 Acetaminophen IV 400 mls/hr Q6H PRN Administration FEVER > 100.5 F Metronidazole 500 mg in 100 mls @ 100 mls/hr 08/13/24 11:00 08/13/24 11:22 Flagyl 500 Mg/100 Ml IV 100 mls/hr Q8H SOLIS Administration Thiamine HCl 100 mg/ Folic 1,001.2 mls @ 100 mls/hr 08/13/24 11:00 08/13/24 11:15 Acid 1 mg/ Sodium Chloride IV 100 mls/hr DAILY SOLIS Administration Ibuprofen 400 mg 08/12/24 13:39 08/12/24 14:21 Ibuprofen 200 Mg/10 Ml Udc PO 400 mg Q6H PRN Administration Fever >101 Ipratropium [place] 0.5 mg 08/10/24 21:53 Ipratropium 0.2 Mg/Ml Neb INH Q6HR PRN Wheezing Lorazepam 2 - 20 mg 08/10/24 21:47 08/13/24 00:47 Lorazepam 2 Mg/Ml Vial IVP 2 mg Q15M PRN Administration RASS > 0 Protocol Nicotine 1 patch 08/11/24 14:31 08/13/24 09:21 Nicotine 21 Mg Patch TOP 1 patch DAILY SOLIS Administration Ondansetron HCl 4 mg 08/10/24 21:53 Ondansetron Odt 4 Mg Tablet TL Q6HR PRN Nausea / Vomiting Ondansetron HCl 4 mg 08/10/24 21:53 Ondansetron 4 Mg/2 Ml Vial IVP Q6HR PRN Nausea / Vomiting Pantoprazole Sodium 40 mg 08/11/24 07:00 08/13/24 06:18 Pantoprazole 40 Mg Vial IVP 40 mg QDAC SOLIS Administration Multivit/Folic Acid/Iron 1 tab 08/11/24 09:00 08/13/24 09:22 Vitamin Tablet PO Not Given DAILY SOLIS Sodium Chloride 10 ml 08/11/24 01:00 08/13/24 09:22 Sodium Chloride Flush 0.9% 10 Ml Syringe IVP 10 ml 0100,0900,1700 SOLIS Administration Sodium Chloride 10 ml 08/10/24 21:53 08/12/24 21:07 Sodium Chloride Flush 0.9% 10 Ml Syringe IVP 10 ml PRN PRN Administration NEEDED PER PROVIDER ORDERS Thiamine HCl 100 mg 08/11/24 09:00 08/13/24 09:22 Thiamine 100 Mg Tablet PO Not Given DAILY SOLIS Objective Vital Signs/Intake & Output Reviewed Vital Signs: Yes Vital Signs: Vital Signs x48h Temp Pulse Resp BP Pulse Ox O2 Flow Rate 08/13/24 10:00 38.5 C H 111 H 45 H 129/78 95 08/13/24 09:00 38.7 C H 110 H 44 H 138/86 H 95 4 08/13/24 08:00 38.5 C H 107 H 46 H 141/88 H 95 4 08/13/24 07:00 103 H 42 H 132/86 H 96 4 08/13/24 06:00 37.8 C 106 H 44 H 139/90 H 95 4 08/13/24 05:00 37.5 C 100 H 37 H 146/96 H 96 4 08/13/24 04:00 37.6 C 105 H 45 H 144/92 H 95 4 Intake & Output: Intake & Output 08/11/24 08/12/24 08/13/24 08/14/24 05:59 05:59 05:59 05:59 Intake Total 3500 / 3500 5243 / 5243 3820 / 3820 150 / 150 Output Total 0 / 0 970 / 970 200 / 200 1999 / 1999 Balance 3500 / 3500 4273 / 4273 3620 / 3620 -1850 / -1850 Weight (kg) 86.5 kg 86.5 kg 86 kg 88.5 kg Objective General Appearance: positive No acute distress and Lethargic Eyes Bilateral: positive Normal inspection, PERRL and EOMI ENT: positive ENT inspection nml Neck: positive Nml inspection and Trachea midline Respiratory: positive Rales and Rhonchi Cardiovascular: positive Tachycardia Skin: positive Color nml and No rash Extremities: positive Non-tender and Nml appearance Neurologic/Psychiatric: positive Other (drowsy, not following commands) Lab Results 08/13/24 04:22 08/13/24 04:22 Other Labs: Lab Results x24hrs 08/13/24 08/12/24 08/12/24 Range/Units 04:22 19:13 12:48 WBC 11.6 H (4.8-10.8) x10^3/uL RBC 3.00 L (4.70-6.10) 10^6/uL Hgb 9.6 L (14.0-18.0) g/dL Hct 28.8 L (42.0-52.0) % MCV 96.0 H (80.0-94.0) fL MCH 32.0 H (27.0-31.0) pg MCHC 33.3 (32.0-36.0) g/dL RDW 15.0 (12.0-15.0) % Plt Count 223 (130-450) 10^3/uL MPV 11.6 H (7.4-11.4) fL Neut # (Auto) Not Reportable Lymph # (Auto) Not Reportable [place] # (Auto) Not Reportable Eos # (Auto) Not Reportable Baso # (Auto) Not Reportable Absolute Nucleated RBC Not Reportable Total Counted 100 Band Neuts % (Manual) 5 (0 - 10) % Abnorm Lymph % (Manual) 0 % Metamyelocytes % 1 H ( - 0) % Myelocytes % 1 H ( - 0) % Nucleated RBC % Not Reportable Neutrophils # (Manual) 8.2 H (1.5-6.6) 10^3/uL Lymphocytes # (Manual) 2.3 (1.5-3.5) 10^3/uL Monocytes # (Manual) 0.8 (0.0-1.0) 10^3/uL Eosinophils # (Manual) 0.0 (0-0.7) 10^3/uL Basophils # (Manual) 0.0 (0-0.1) 10^3/uL Differential Comment MANUAL DIFFERENTIAL Platelet Estimate NORMAL (130-450,000) (NORMAL) RBC Morph Micro Appear NORMAL APPEARANCE (NORMAL) VBG pH 7.472 H 7.485 H 7.468 H (7.31-7.41) Ionized Calcium 1.06 L 1.09 L 1.07 L (1.15-1.33) mmol/L Sodium 132 L (135-145) mmol/L Potassium 3.7 3.5 3.7 (3.5-4.5) mmol/L Chloride 100 L (101-111) mmol/L Carbon Dioxide 26 (21-32) mmol/L Anion Gap 6.0 (6-13) BUN 9 (6-20) mg/dL Creatinine 0.7 (0.6-1.3) mg/dL Estimated GFR (MDRD) 115 (>89) Glucose 108 H (74-104) mg/dL Calcium 8.3 L (8.5-10.3) mg/dL Phosphorus 4.4 3.6 (2.5-5.0) mg/dL Magnesium 1.6 L 1.7 1.6 L (1.7-2.3) mg/dL Total Bilirubin 0.6 (0.2-1.0) mg/dL AST 121 H (10-42) IU/L ALT 52 (10-60) IU/L Alkaline Phosphatase 103 (42-121) IU/L Total Protein 5.6 L (6.4-8.9) g/dL Albumin 2.3 L (3.2-5.5) g/dL Globulin 3.3 (2.1-4.2) g/dL Albumin/Globulin Ratio 0.7 L (1.0-2.2) ABX Reporting Has patient been on IV antibiotics over the past 48 hours?: Yes Sepsis Event Note (H) Evaluation Sepsis Documentation Tip Sheet: Sepsis present on admission Evaluation Current Stage of Sepsis: Severe sepsis Possible source of Sepsis: positive Pulmonary (Middle lobe pneumonia) Confirmed Source and Organism (if known) of Sepsis: strep pneumonia Sepsis Criteria Sepsis Criteria: Recorded Temperature greater than 38.3C or Less than 36C, Recorded Heart Rate greater than 90 bpm, Respiratory: Increasing oxygen requirements, WBC count greater than 12,000 or less than 4000, MAP less than 65 mmHg, SBP less than 90 mmHg and Metabolic: lactate > 2 mmol/L Current Stage of Sepsis: Sepsis Possible source of Sepsis: positive Pulmonary (Middle lobe pneumonia) Sepsis Criteria Sepsis Criteria: Recorded Temperature greater than 38.3C or Less than 36C, Recorded Heart Rate greater than 90 bpm, Respiratory: Increasing oxygen requirements, WBC count greater than 12,000 or less than 4000, MAP less than 65 mmHg, SBP less than 90 mmHg and Metabolic: lactate > 2 mmol/L Assessment/Plan Problem List (1) Pneumonia: Impression: Impression: Patient presents as cough, shortness of breath and fever from a drug rehab withdrawal facility. Right middle lobe infiltrate identified on chest x-ray leads me to believe there may be some element of aspiration. On the I felt that he was responding to therapy. His white cell count had come down somewhat to 11.9. leukocytosis has resolved. Patient tested positive for strep pneumonia. He was started on Rocephin, day 4. Add Flagyl for anaerobic coverage due to high risk of aspiration. Given patient's current respiratory status he is at high risk for intubation. Continue patient n.p.o. Blood cultures remain negative. Qualifiers: Pneumonia type: due to unspecified organism Qualifiers: Pneumonia type: due to unspecified organism (2) Severe sepsis: Impression: Severe sepsis has resolved. Leukocytosis has resolved. He is on Rocephin for strep pneumonia and Flagyl for aspiration pneumonia. Hemodynamics have been stable. Lactic acid has resolved. Patient is intermittent fevers likely secondary to pneumonia versus active acute alcohol withdrawal. (3) Elevated lactic acid level: Impression: Resolved (4) Alcohol withdrawal: Impression: Patient seen to be active alcohol withdrawal. He is on Librium 3 times daily and CIWA protocol. Requiring high dose Ativan. Today patient is obtunded and, unresponsive to commands. Patient is n.p.o. on IV thiamine and folic acis.. Most likely his respiratory status is related to active alcohol withdrawal versus pneumonia. Patient is high risk of intubation. Monitor closely. Continue CIWA protocol. Patient with a history of seizures during alcohol withdrawal. Monitor for seizure activity. Qualifiers: Complication of substance-induced condition: uncomplicated Qualified Code(s): F10.930 - Alcohol use, unspecified with withdrawal, uncomplicated (5) Nicotine dependence with withdrawal: Impression: Patient on Nicotine patch Qualifiers: Nicotine product type: cigarettes Qualified Code(s): F17.213 - Nicotine dependence, cigarettes, with withdrawal
--- NOTE | 2024-08-13 12:53 | XRAY Report ---
PROCEDURE: XR Chest 1V INDICATIONS: worsening hypoxia and tachy with strep pna TECHNIQUE: One view of the chest was acquired. COMPARISON: 08/10/2024. FINDINGS: Heart size, Mediastinum, Pulmonary vasculature: Heart is normal in size and configuration. Mediastinu m is unremarkable. Pulmonary vasculature is normal. Lungs: Moderate consolidated infiltrate in the right midlung show slight progression from x-ray 2 day s ago Pleural spaces: No effusion or evidence of pneumothorax. Bones and soft tissues: Unremarkable. IMPRESSION: Moderate solidly pneumonia right midlung progressing from x-ray 2 days ago Reviewed by: Burt Bales MD on 08/13/2024 12:51 PM PDT Approved by: Burt Bales MD on 08/13/2024 12:51 PM PDT Station ID: [id number]
[2024-08-13 14:55] LABS: CALCIUM, IONIZED 1.04 mmol/L (1.15-1.33); VBG PH 7.443 (7.31-7.41)
[2024-08-13] MEDS ORDERED: POTASSIUM CHLORIDE INJ 40 MEQ in SODIUM CHLORIDE 0.9% 500 ML IV ONE (16:02)
[2024-08-13] MEDS ORDERED: POTASSIUM CHLOR 10 MEQ/100 ML 10 MEQ/100 ML BAG IV ONE ×3 (16:14→18:15)
[2024-08-13] MEDS: POTASSIUM CHLORIDE INJ 40 MEQ in SODIUM CHLORIDE 0.9% 500 ML IV ONE (16:57)
[2024-08-13 22:44] LABS: CALCIUM, IONIZED 1.07 mmol/L (1.15-1.33); VBG PH 7.437 (7.31-7.41)
[2024-08-14] MEDS: POTASSIUM CHLOR 10 MEQ/100 ML 10 MEQ/100 ML BAG IV SCH ×2 (00:43→06:54)
[2024-08-14] MEDS: CALCIUM GLUC 1,000MG/50ML-NACL 1,000 MG/50 ML BAG IV ONE (00:49)
[2024-08-14 04:39] LABS: CALCIUM, IONIZED 1.1 mmol/L (1.15-1.33); VBG PH 7.49 (7.31-7.41)
[2024-08-14 06:06] LABS: MAGNESIUM 1.4 mg/dL (1.7-2.3); POTASSIUM 3.8 mmol/L (3.5-4.5)
[2024-08-14] MEDS: MAGNESIUM SULFATE 2 GRAM 2 GM/50 ML BAG IV SCH (06:56)
[2024-08-14 07:57] LABS: BASOPHILS # (AUTO) 0.1 10^3/uL (0.0-0.1); BASOPHILS % (AUTO) 0.8 %; EOSINOPHILS # (AUTO) 0.1 10^3/uL (0.0-0.7); EOSINOPHILS % (AUTO) 1.2 %; HGB - HEMOGLOBIN 10.7 g/dL (14.0-18.0); LYMPHOCYTES # (AUTO) 1.2 10^3/uL (1.5-3.5); LYMPHOCYTES % (AUTO) 10.5 %; MEAN CORPUSCULAR HGB CONC 34.5 g/dL (32.0-36.0); MEAN CORPUSCULAR VOLUME 95.7 fL (80.0-94.0); MEAN PLATELET VOLUME 11.3 fL (7.4-11.4); MONOCYTES # (AUTO) 1.5 10^3/uL (0.0-1.0); MONOCYTES % (AUTO) 13.2 %; NEUTROPHILS # (AUTO) 7.3 10^3/uL (1.5-6.6); NEUTROPHILS % (AUTO) 65.9 %; PLT - PLATELET COUNT 308 10^3/uL (130-450); RED BLOOD COUNT 3.24 10^6/uL (4.70-6.10); RED CELL DISTRIBUTION WIDTH 14.9 % (12.0-15.0)
[2024-08-14 07:58] LABS: SLIDE REVIEW? Indicated
[2024-08-14 08:30] LABS: PLATELET ESTIMATE, MANUAL NORMAL (130-450,000) (NORMAL); PLATELET MORPHOLOGY NORMAL APPEARANCE (NORMAL); RBC MORPHOLOGY (MULTIPLE) NORMAL APPEARANCE (NORMAL)
--- NOTE | 2024-08-14 10:48 | PROVIDER PROGRESS NOTE ---
Subjective Prog Note Date Prog Note Date: 08/14/24 Prog Note Time: 10:37 Subjective Pt reports feeling: Improved Subjective: H&P was conducted via video remotely, using [employer]. [place] is in [place] Physician is in [place] TUBE FILLER is at bedside. Unable to obtain history from pt d/t pt's clinical condition/drowsiness. RN reports that he just received another dose of Ativan. History obtained from staff, chart. 59 yo M with PMH of ETOH abuse with h/o withdrawal seizures and Tobacco use presented to the ER from a local ETOH Detox facility for c/o 1 day h/o Fever, SOB, cough. Pt has a long h/o ETOH abuse with previous hospitalizations and rehab facility stays. Pt admitted himself to alcohol withdrawal facility yesterday. His last drink was just prior to going to the facility. Pt received Ativan for tremors at 1300 today. He continued to have tremors and the staff noticed that he was coughing, had SOB, and checked his temp, which was 103F, so they sent him to the ER. In the ER, pt was reportedly tremulous, anxious and A+Ox3. His CIWA score was 20. He has since received Ativan IV and now is drowsy and unable to answer questions or follow commands. Pt had denied seizure, but he does have h/o withdrawal sz. He had denied N/V/abdo pain. HR 120-140, RR 30, T38.2C, SpO2 93% 2L NC O2 WBC 13.5, LA 2.4, Hgb 12.3, MCH 34, Na 129, Glc 145, AST 317, ALT 79, Mg 1.3, ETOH<10, BC x 2 pending Viral pathogen: Rhinovirus + CXR: R middle lobe infiltrate Pt has received Tylenol, Thiamine, Mag SO4 2 gm IV, Folate, Zofran, IVF x 3L, Ativan 5 mg IV, Rocephin/Vanco in the ER. 08/13/2024: Overnight pt became more lethargic and obtuse. Today pt is difficult to awake, unabale to follow commands. Tachycardia and breathing in the high 20s. 08/14/2024: Patient slowly waking up. Tries to follow commands Current Medications Current Medications Current Medications: Current Medications Generic Name Dose Route Start Last Admin Trade Name Freq PRN Reason Stop Dose Admin Albuterol 2.5 mg 08/10/24 21:53 Albuterol Neb 2.5 Mg/3 Ml INH Q4HR PRN Wheezing Ceftriaxone Sodium 2 gm 08/12/24 13:33 08/14/24 09:27 Ceftriaxone 2 Gm Vial IVP 2 gm DAILY SOLIS Administration Furosemide 40 mg 08/13/24 11:00 08/14/24 09:27 Furosemide 40 Mg/4 Ml Vial IVP 40 mg DAILY SOLIS Administration Heparin Sodium (Porcine) 5,000 unit 08/11/24 09:00 08/14/24 09:27 Heparin 5,000 Unit/Ml Vial SUBQ 5,000 unit BID SOLIS Administration Acetaminophen 1,000 mg in 100 mls @ 400 mls/hr 08/13/24 08:52 08/14/24 00:01 Acetaminophen IV 400 mls/hr Q6H PRN Administration FEVER > 100.5 F Metronidazole 500 mg in 100 mls @ 100 mls/hr 08/13/24 11:00 08/14/24 04:36 Flagyl 500 Mg/100 Ml IV 100 mls/hr Q8H SOLIS Administration Thiamine HCl 100 mg/ Folic 1,001.2 mls @ 100 mls/hr 08/13/24 11:00 08/13/24 22:33 Acid 1 mg/ Sodium Chloride IV Infused DAILY SOLIS Infusion Ibuprofen 400 mg 08/12/24 13:39 08/12/24 14:21 Ibuprofen 200 Mg/10 Ml Udc PO 400 mg Q6H PRN Administration Fever >101 Ipratropium [place] 0.5 mg 08/10/24 21:53 Ipratropium 0.2 Mg/Ml Neb INH Q6HR PRN Wheezing Lorazepam 2 - 20 mg 08/10/24 21:47 08/13/24 00:47 Lorazepam 2 Mg/Ml Vial IVP 2 mg Q15M PRN Administration RASS > 0 Protocol Nicotine 1 patch 08/11/24 14:31 08/14/24 09:27 Nicotine 21 Mg Patch TOP 1 patch DAILY SOLIS Administration Ondansetron HCl 4 mg 08/10/24 21:53 Ondansetron Odt 4 Mg Tablet TL Q6HR PRN Nausea / Vomiting Ondansetron HCl 4 mg 08/10/24 21:53 Ondansetron 4 Mg/2 Ml Vial IVP Q6HR PRN Nausea / Vomiting Pantoprazole Sodium 40 mg 08/11/24 07:00 08/14/24 06:45 Pantoprazole 40 Mg Vial IVP 40 mg QDAC SOLIS Administration Sodium Chloride 10 ml 08/11/24 01:00 08/14/24 09:28 Sodium Chloride Flush 0.9% 10 Ml Syringe IVP 10 ml 0100,0900,1700 SOLIS Administration Sodium Chloride 10 ml 08/10/24 21:53 08/14/24 06:45 Sodium Chloride Flush 0.9% 10 Ml Syringe IVP 10 ml PRN PRN Administration NEEDED PER PROVIDER ORDERS Objective Vital Signs/Intake & Output Reviewed Vital Signs: Yes Vital Signs: Vital Signs x48h Temp Pulse Resp BP Pulse Ox O2 Flow Rate 08/14/24 10:00 38.6 C H 109 H 39 H 102/66 94 6 08/14/24 09:00 114 H 34 H 112/64 91 L 6 08/14/24 08:00 37.8 C 109 H 56 H 125/74 96 6 08/14/24 07:45 6 08/14/24 07:00 37.4 C 106 H 62 H 97/62 92 6 08/14/24 06:00 37.4 C 92 H 40 H 108/68 94 6 08/14/24 05:00 37.4 C 81 35 H 120/74 97 6 08/14/24 04:00 36.8 C 85 34 H 103/65 97 6 08/14/24 03:00 36.8 C 79 41 H 115/73 94 6 Intake & Output: Intake & Output 08/12/24 08/13/24 08/14/24 08/15/24 05:59 05:59 05:59 05:59 Intake Total 5243 / 5243 3820 / 3820 3031.2 / 3031.2 150 / 150 Output Total 970 / 970 200 / 200 3050 / 3050 600 / 600 Balance 4273 / 4273 3620 / 3620 -18.8 / -18.8 -450 / -450 Weight (kg) 86.5 kg 86 kg 88.5 kg 88 kg Objective General Appearance: positive No acute distress and Lethargic Eyes Bilateral: positive Normal inspection, PERRL and EOMI ENT: positive ENT inspection nml Neck: positive Nml inspection and Trachea midline Respiratory: positive Rales and Rhonchi Cardiovascular: positive Tachycardia Skin: positive Color nml and No rash Extremities: positive Non-tender and Nml appearance Neurologic/Psychiatric: positive Other (drowsy, not following commands) Lab Results 08/14/24 07:50 08/14/24 11:00 Other Labs: Lab Results x24hrs 08/14/24 08/14/24 08/13/24 Range/Units 07:50 04:18 22:33 WBC 11.0 H (4.8-10.8) x10^3/uL RBC 3.24 L (4.70-6.10) 10^6/uL Hgb 10.7 L (14.0-18.0) g/dL Hct 31.0 L (42.0-52.0) % MCV 95.7 H (80.0-94.0) fL MCH 33.0 H (27.0-31.0) pg MCHC 34.5 (32.0-36.0) g/dL RDW 14.9 (12.0-15.0) % Plt Count 308 (130-450) 10^3/uL MPV 11.3 (7.4-11.4) fL Neut # (Auto) 7.3 H (1.5-6.6) 10^3/uL Lymph # (Auto) 1.2 L (1.5-3.5) 10^3/uL [place] # (Auto) 1.5 H (0.0-1.0) 10^3/uL Eos # (Auto) 0.1 (0.0-0.7) 10^3/uL Baso # (Auto) 0.1 (0.0-0.1) 10^3/uL Absolute Nucleated RBC 0.00 x10^3/uL Nucleated RBC % 0.0 /100WBC Manual Slide Review Indicated WBC Morphology (NORMAL) Platelet Estimate NORMAL (130-450,000) (NORMAL) Platelet Morphology NORMAL APPEARANCE (NORMAL) RBC Morph Micro Appear NORMAL APPEARANCE (NORMAL) VBG pH 7.490 H 7.437 H (7.31-7.41) Ionized Calcium 1.10 L 1.07 L (1.15-1.33) mmol/L Potassium 3.8 (3.5-4.5) mmol/L Calcium (8.5-10.3) mg/dL Phosphorus 3.9 (2.5-5.0) mg/dL Magnesium 1.4 L (1.7-2.3) mg/dL 08/13/24 08/13/24 08/13/24 Range/Units 22:30 20:24 14:43 WBC (4.8-10.8) x10^3/uL RBC (4.70-6.10) 10^6/uL Hgb (14.0-18.0) g/dL Hct (42.0-52.0) % MCV (80.0-94.0) fL MCH (27.0-31.0) pg MCHC (32.0-36.0) g/dL RDW (12.0-15.0) % Plt Count (130-450) 10^3/uL MPV (7.4-11.4) fL Neut # (Auto) (1.5-6.6) 10^3/uL Lymph # (Auto) (1.5-3.5) 10^3/uL [place] # (Auto) (0.0-1.0) 10^3/uL Eos # (Auto) (0.0-0.7) 10^3/uL Baso # (Auto) (0.0-0.1) 10^3/uL Absolute Nucleated RBC x10^3/uL Nucleated RBC % /100WBC Manual Slide Review WBC Morphology (NORMAL) Platelet Estimate (NORMAL) Platelet Morphology (NORMAL) RBC Morph Micro Appear (NORMAL) VBG pH 7.443 H (7.31-7.41) Ionized Calcium 1.04 L (1.15-1.33) mmol/L Potassium 3.8 3.5 (3.5-4.5) mmol/L Calcium 8.8 (8.5-10.3) mg/dL Phosphorus (2.5-5.0) mg/dL Magnesium 1.7 (1.7-2.3) mg/dL ABX Reporting Has patient been on IV antibiotics over the past 48 hours?: Yes Sepsis Event Note (H) Evaluation Sepsis Documentation Tip Sheet: Sepsis present on admission Evaluation Current Stage of Sepsis: Severe sepsis Possible source of Sepsis: positive Pulmonary (Middle lobe pneumonia) Confirmed Source and Organism (if known) of Sepsis: strep pneumonia Sepsis Criteria Sepsis Criteria: Recorded Temperature greater than 38.3C or Less than 36C, Recorded Heart Rate greater than 90 bpm, Respiratory: Increasing oxygen requirements, WBC count greater than 12,000 or less than 4000, MAP less than 65 mmHg, SBP less than 90 mmHg and Metabolic: lactate > 2 mmol/L Current Stage of Sepsis: Sepsis Possible source of Sepsis: positive Pulmonary (Middle lobe pneumonia) Sepsis Criteria Sepsis Criteria: Recorded Temperature greater than 38.3C or Less than 36C, Recorded Heart Rate greater than 90 bpm, Respiratory: Increasing oxygen requirements, WBC count greater than 12,000 or less than 4000, MAP less than 65 mmHg, SBP less than 90 mmHg and Metabolic: lactate > 2 mmol/L Assessment/Plan Problem List (1) Pneumonia: Impression: Impression: Patient tested positive for rhinovirus on admission. Currently pt continued to have episodes of fever. Chest x-ray On admission Indicates a right middle lobe infiltrate possible superimposed bacterial infection. Patient was started on Rocephin on admission, 02/03 Qualifiers: Pneumonia type: due to unspecified organism Qualifiers: Pneumonia type: due to unspecified organism (2) Severe sepsis: Impression: Severe sepsis Resolved Leukocytosis has resolved. He is on Rocephin for strep pneumonia bacteremia and Flagyl for aspiration pneumonia. Hemodynamics have been stable. Lactic acid has resolved. Patient continues to have intermittent fevers likely secondary to pneumonia versus active acute alcohol withdrawal. (3) Elevated lactic acid level: Impression: Resolved (4) Alcohol withdrawal: Impression: Most likely his respiratory status is related to active alcohol withdrawal versus pneumonia. Patient is high risk of intubation. Monitor closely. Continue CIWA protocol. Patient with a history of seizures during alcohol withdrawal. Monitor for seizure activity. DC'd Librium p.o. due to patient high risk for aspiration, patient is on CIWA protocol which includes IV Ativan as needed. Continue to keep patient n.p.o. Qualifiers: Complication of substance-induced condition: uncomplicated Qualified Code(s): F10.930 - Alcohol use, unspecified with withdrawal, uncomplicated (5) Nicotine dependence with withdrawal: Impression: Patient on Nicotine patch Qualifiers: Nicotine product type: cigarettes Qualified Code(s): F17.213 - Nicotine dependence, cigarettes, with withdrawal (6) Bacteremia due to Gram-positive bacteria: Impression: Patient had 2 positive blood cultures on 08/10/2024 which resolved to strep pneumoniae. Patient was started on Rocephin. Repeat blood cultures on 08/11 indicated resolution of bacteremia Patient has episodic fever. Panculture patient. (7) Recurrent fever: Impression: Etiology unknown, Differential includes Viral pneumonia, Strep pneumonia bacteremia and alcohol withdrawal Patient does not have any indication of DVT on examination. He is on Pharmaceutical anticoagulation. Plan: Panculture patient, Tylenol IV as needed
[2024-08-15 04:44] LABS: BASOPHILS % (AUTO) 0.9 %; EOSINOPHILS % (AUTO) 1.2 %; HCT - HEMATOCRIT 29.5 % (42.0-52.0); HGB - HEMOGLOBIN 10.1 g/dL (14.0-18.0); LYMPHOCYTES % (AUTO) 11.3 %; MEAN CORPUSCULAR HGB CONC 34.2 g/dL (32.0-36.0); MEAN CORPUSCULAR VOLUME 96.4 fL (80.0-94.0); MEAN PLATELET VOLUME 11.2 fL (7.4-11.4); MONOCYTES % (AUTO) 15.5 %; NEUTROPHILS % (AUTO) 62.5 %; PLT - PLATELET COUNT 377 10^3/uL (130-450); RED BLOOD COUNT 3.06 10^6/uL (4.70-6.10); RED CELL DISTRIBUTION WIDTH 15.2 % (12.0-15.0); WHITE BLOOD COUNT 13.3 x10^3/uL (4.8-10.8)
[2024-08-15 04:50] LABS: ABNORMAL LYMPHS % (MANUAL) 0 %; CALCIUM, IONIZED 1.06 mmol/L (1.15-1.33); VBG PH 7.494 (7.31-7.41)
[2024-08-15 05:00] LABS: CALCIUM 8.5 mg/dL (8.5-10.3); CREATININE 0.7 mg/dL (0.6-1.3); POTASSIUM 3.9 mmol/L (3.5-4.5)
[2024-08-15 05:02] LABS: MAGNESIUM 1.7 mg/dL (1.7-2.3); PHOSPHORUS 3.5 mg/dL (2.5-5.0)
[2024-08-15 05:09] LABS: BAND NEUTROPHILS % (MANUAL) 2 %; DIFFERENTIAL COMMENT MANUAL DIFFERENTIAL; LYMPHOCYTES # (MANUAL) 1.3 10^3/uL (1.5-3.5); LYMPHOCYTES % (MANUAL) 10 %; MONOCYTES # (MANUAL) 1.1 10^3/uL (0.0-1.0); NEUTROPHILS # (MANUAL) 10.9 10^3/uL (1.5-6.6); PLATELET ESTIMATE, MANUAL NORMAL (130-450,000) (NORMAL); RBC MORPHOLOGY (MULTIPLE) 1+ HYPOCHROMASIA (NORMAL)
[2024-08-15] MEDS: CALCIUM GLUC 1,000MG/50ML-NACL 1,000 MG/50 ML BAG IV ONE (06:07)
[2024-08-15] MEDS: MAGNESIUM SULFATE 2 GRAM 2 GM/50 ML BAG IV ONE (06:07)
--- NOTE | 2024-08-15 08:46 | PROVIDER PROGRESS NOTE ---
Subjective Prog Note Date Prog Note Date: 08/15/24 Prog Note Time: 08:39 Subjective Pt reports feeling: Improved Subjective: H&P was conducted via video remotely, using [employer]. [place] is in [place] Physician is in [place]. TECHNICAL ACCOUNT REPRESENTATIVE is at bedside. Unable to obtain history from pt d/t pt's clinical condition/drowsiness. RN reports that he just received another dose of Ativan. History obtained from staff, chart. 59 yo M with PMH of ETOH abuse with h/o withdrawal seizures and Tobacco use presented to the ER from a local ETOH Detox facility for c/o 1 day h/o Fever, SOB, cough. Pt has a long h/o ETOH abuse with previous hospitalizations and rehab facility stays. Pt admitted himself to alcohol withdrawal facility yesterday. His last drink was just prior to going to the facility. Pt received Ativan for tremors at 1300 today. He continued to have tremors and the staff noticed that he was coughing, had SOB, and checked his temp, which was 103F, so they sent him to the ER. In the ER, pt was reportedly tremulous, anxious and A+Ox3. His CIWA score was 20. He has since received Ativan IV and now is drowsy and unable to answer questions or follow commands. Pt had denied seizure, but he does have h/o withdrawal sz. He had denied N/V/abdo pain. HR 120-140, RR 30, T38.2C, SpO2 93% 2L NC O2 WBC 13.5, LA 2.4, Hgb 12.3, MCH 34, Na 129, Glc 145, AST 317, ALT 79, Mg 1.3, ETOH<10, BC x 2 pending Viral pathogen: Rhinovirus + CXR: R middle lobe infiltrate Pt has received Tylenol, Thiamine, Mag SO4 2 gm IV, Folate, Zofran, IVF x 3L, Ativan 5 mg IV, Rocephin/Vanco in the ER. 08/13/2024: Overnight pt became more lethargic and obtuse. Today pt is difficult to awake, unable to follow commands. Tachycardia and breathing in the high 20s. 08/14/2024: Patient slowly waking up. Tries to follow commands 08/15/2024: Patient is now awake, following commands. Oriented x 4. Patient states he is hungry and needs to have physical therapy before he goes home. Current Medications Current Medications Current Medications: Current Medications Generic Name Dose Route Start Last Admin Trade Name Freq PRN Reason Stop Dose Admin Albuterol 2.5 mg 08/10/24 21:53 Albuterol Neb 2.5 Mg/3 Ml INH Q4HR PRN Wheezing Ceftriaxone Sodium 2 gm 08/12/24 13:33 08/14/24 09:27 Ceftriaxone 2 Gm Vial IVP 2 gm DAILY SOLIS Administration Folic Acid 1 mg 08/15/24 09:00 Folic Acid 1 Mg Tablet PO DAILY SOLIS Heparin Sodium (Porcine) 5,000 unit 08/11/24 09:00 08/14/24 21:08 Heparin 5,000 Unit/Ml Vial SUBQ 5,000 unit BID SOLIS Administration Acetaminophen 1,000 mg in 100 mls @ 400 mls/hr 08/13/24 08:52 08/15/24 05:43 Acetaminophen IV Infused Q6H PRN Infusion FEVER > 100.5 F Metronidazole 500 mg in 100 mls @ 100 mls/hr 08/13/24 11:00 08/15/24 04:29 Flagyl 500 Mg/100 Ml IV Infused Q8H SOLIS Infusion Ibuprofen 400 mg 08/12/24 13:39 08/12/24 14:21 Ibuprofen 200 Mg/10 Ml Udc PO 400 mg Q6H PRN Administration Fever >101 Ipratropium [place] 0.5 mg 08/10/24 21:53 Ipratropium 0.2 Mg/Ml Neb INH Q6HR PRN Wheezing Nicotine 1 patch 08/11/24 14:31 08/14/24 09:27 Nicotine 21 Mg Patch TOP 1 patch DAILY SOLIS Administration Ondansetron HCl 4 mg 08/10/24 21:53 Ondansetron Odt 4 Mg Tablet TL Q6HR PRN Nausea / Vomiting Ondansetron HCl 4 mg 08/10/24 21:53 Ondansetron 4 Mg/2 Ml Vial IVP Q6HR PRN Nausea / Vomiting Pantoprazole Sodium 40 mg 08/11/24 07:00 08/15/24 06:07 Pantoprazole 40 Mg Vial IVP 40 mg QDAC SOLIS Administration Sodium Chloride 10 ml 08/11/24 01:00 08/15/24 03:15 Sodium Chloride Flush 0.9% 10 Ml Syringe IVP 10 ml 0100,0900,1700 SOLIS Administration Sodium Chloride 10 ml 08/10/24 21:53 08/14/24 06:45 Sodium Chloride Flush 0.9% 10 Ml Syringe IVP 10 ml PRN PRN Administration NEEDED PER PROVIDER ORDERS Thiamine HCl 100 mg 08/15/24 09:00 Thiamine 100 Mg Tablet PO DAILY [facility] Objective Vital Signs/Intake & Output Reviewed Vital Signs: Yes Vital Signs: Vital Signs x48h Temp Pulse Resp BP Pulse Ox O2 Flow Rate 08/15/24 08:00 37.3 C 89 45 H 99/58 L 93 6 08/15/24 07:00 37.6 C 90 30 H 101/58 L 94 6 08/15/24 06:00 37.6 C 89 34 H 104/59 L 94 6 08/15/24 05:00 37.7 C 94 H 37 H 99/59 L 97 6 08/15/24 04:00 37.8 C 96 H 44 H 109/71 92 6 08/15/24 03:00 37.6 C 92 H 41 H 117/72 97 6 08/15/24 02:00 37.5 C 89 44 H 105/65 97 6 08/15/24 01:00 37.6 C 94 H 31 H 111/69 97 6 Intake & Output: Intake & Output 08/13/24 08/14/24 08/15/24 08/16/24 05:59 05:59 05:59 05:59 Intake Total 3820 / 3820 3231.2 / 3231.2 2421.2 / 2421.2 Output Total 200 / 200 3050 / 3050 1395 / 1395 20 / 20 Balance 3620 / 3620 181.2 / 181.2 1026.2 / 1026.2 -20 / -20 Weight (kg) 86 kg 88.5 kg 88 kg 84.5 kg Objective General Appearance: positive No acute distress and Lethargic Eyes Bilateral: positive Normal inspection, PERRL and EOMI ENT: positive ENT inspection nml Neck: positive Nml inspection and Trachea midline Respiratory: positive Chest non-tender and Rales Cardiovascular: positive No murmur, No gallop and Tachycardia Abdomen: positive Non-tender and No distention Skin: positive Color nml and No rash Extremities: positive Non-tender, Full ROM and Nml appearance Neurologic/Psychiatric: positive Oriented x3 and CN's nml (2-12) Lab Results 08/15/24 04:26 08/15/24 04:26 Other Labs: Lab Results x24hrs 08/15/24 08/14/24 Range/Units 04:26 11:00 WBC 13.3 H (4.8-10.8) x10^3/uL RBC 3.06 L (4.70-6.10) 10^6/uL Hgb 10.1 L (14.0-18.0) g/dL Hct 29.5 L (42.0-52.0) % MCV 96.4 H (80.0-94.0) fL MCH 33.0 H (27.0-31.0) pg MCHC 34.2 (32.0-36.0) g/dL RDW 15.2 H (12.0-15.0) % Plt Count 377 (130-450) 10^3/uL MPV 11.2 (7.4-11.4) fL Neut # (Auto) Not Reportable Lymph # (Auto) Not Reportable [place] # (Auto) Not Reportable Eos # (Auto) Not Reportable Baso # (Auto) Not Reportable Absolute Nucleated RBC Not Reportable Total Counted 100 Band Neuts % (Manual) 2 (0 - 10) % Abnorm Lymph % (Manual) 0 % Nucleated RBC % Not Reportable Neutrophils # (Manual) 10.9 H (1.5-6.6) 10^3/uL Lymphocytes # (Manual) 1.3 L (1.5-3.5) 10^3/uL Monocytes # (Manual) 1.1 H (0.0-1.0) 10^3/uL Eosinophils # (Manual) 0.0 (0-0.7) 10^3/uL Basophils # (Manual) 0.0 (0-0.1) 10^3/uL Differential Comment MANUAL DIFFERENTIAL Platelet Estimate NORMAL (130-450,000) (NORMAL) RBC Morph Micro Appear 1+ HYPOCHROMASIA (NORMAL) VBG pH 7.494 H (7.31-7.41) Ionized Calcium 1.06 L (1.15-1.33) mmol/L Sodium 133 L (135-145) mmol/L Potassium 3.9 4.0 (3.5-4.5) mmol/L Chloride 99 L (101-111) mmol/L Carbon Dioxide 26 (21-32) mmol/L Anion Gap 8.0 (6-13) BUN 16 (6-20) mg/dL Creatinine 0.7 (0.6-1.3) mg/dL Estimated GFR (MDRD) 115 (>89) Glucose 94 (74-104) mg/dL Calcium 8.5 (8.5-10.3) mg/dL Phosphorus 3.5 (2.5-5.0) mg/dL Magnesium 1.7 2.0 (1.7-2.3) mg/dL ABX Reporting Has patient been on IV antibiotics over the past 48 hours?: Yes Sepsis Event Note (H) Evaluation Sepsis Documentation Tip Sheet: Sepsis present on admission Evaluation Current Stage of Sepsis: Severe sepsis Possible source of Sepsis: positive Pulmonary (Middle lobe pneumonia) Confirmed Source and Organism (if known) of Sepsis: strep pneumonia Sepsis Criteria Sepsis Criteria: Recorded Temperature greater than 38.3C or Less than 36C, Recorded Heart Rate greater than 90 bpm, Respiratory: Increasing oxygen requirements, WBC count greater than 12,000 or less than 4000, MAP less than 65 mmHg, SBP less than 90 mmHg and Metabolic: lactate > 2 mmol/L Current Stage of Sepsis: Sepsis Possible source of Sepsis: positive Pulmonary (Middle lobe pneumonia) Sepsis Criteria Sepsis Criteria: Recorded Temperature greater than 38.3C or Less than 36C, Recorded Heart Rate greater than 90 bpm, Respiratory: Increasing oxygen requirements, WBC count greater than 12,000 or less than 4000, MAP less than 65 mmHg, SBP less than 90 mmHg and Metabolic: lactate > 2 mmol/L Assessment/Plan Problem List (1) Pneumonia: Impression: Impression: Patient tested positive for rhinovirus on admission. Currently pt continued to have episodes of fever. Chest x-ray On admission Indicates a right middle lobe infiltrate, possible superimposed bacterial infection. Continue patient on Rocephin /, Flagyl 2/5 Patient Is not any respiratory distress however there are Rales on examination. Qualifiers: Pneumonia type: Rhinovirus Qualifiers: Pneumonia type: due to unspecified organism (2) Severe sepsis: Impression: Severe sepsis -- Resolved Leukocytosis has resolved. He is on Rocephin for strep pneumonia bacteremia and Flagyl for aspiration pneumonia. Hemodynamics have been stable. Lactic acid has resolved. Patient continues to have intermittent fevers likely secondary to pneumonia versus active acute alcohol withdrawal. (3) Elevated lactic acid level: Impression: Resolved (4) Alcohol withdrawal: Impression: Alcohol withdrawal -- resolved DC CIWA protocol. Patient has not needed Ativan since the evening of 08/13. Tremors and delirium has resolved. Start patient on diet. Qualifiers: Complication of substance-induced condition: uncomplicated Qualified Code(s): F10.930 - Alcohol use, unspecified with withdrawal, uncomplicated (5) Nicotine dependence with withdrawal: Impression: Patient on Nicotine patch Qualifiers: Nicotine product type: cigarettes Qualified Code(s): F17.213 - Nicotine dependence, cigarettes, with withdrawal (6) Bacteremia due to Gram-positive bacteria: Impression: Patient had 2 positive blood cultures on 08/10/2024 which resolved to strep pneumoniae. Patient was started on Rocephin. Repeat blood cultures on 08/11 indicated resolution of bacteremia Patient has episodic fever. Awaiting resolution of cultures of sputum, urine and blood (7) Recurrent fever: Impression: Etiology unknown, Differential includes Viral pneumonia, Strep pneumonia bacteremia and alcohol withdrawal Patient does not have any indication of DVT on examination. He is on Pharmaceutical anticoagulation. Plan: Panculture patient, Tylenol IV as needed Today Patient's WBC increased from 11-13.3, But no fevers overnight Awaiting resolution of culture of sputum, blood and urine.
[2024-08-15] MEDS: THIAMINE 100 MG TABLET PO SCH (09:24)
[2024-08-15] MEDS: FOLIC ACID 1 MG TABLET PO SCH (09:24)
[2024-08-15] MEDS: ACETAMINOPHEN 500 MG TABLET PO PRN (16:03)
[2024-08-16 05:55] LABS: BASOPHILS % (AUTO) 0.7 %; EOSINOPHILS % (AUTO) 1.8 %; HCT - HEMATOCRIT 26.1 % (42.0-52.0); LYMPHOCYTES % (AUTO) 17.1 %; MEAN CORPUSCULAR HEMOGLOBIN 32.6 pg (27.0-31.0); MEAN CORPUSCULAR HGB CONC 34.5 g/dL (32.0-36.0); MEAN CORPUSCULAR VOLUME 94.6 fL (80.0-94.0); MEAN PLATELET VOLUME 10.9 fL (7.4-11.4); MONOCYTES % (AUTO) 13.1 %; NEUTROPHILS % (AUTO) 55.8 %; PLT - PLATELET COUNT 457 10^3/uL (130-450); RED BLOOD COUNT 2.76 10^6/uL (4.70-6.10); RED CELL DISTRIBUTION WIDTH 15.2 % (12.0-15.0); WHITE BLOOD COUNT 12.9 x10^3/uL (4.8-10.8)
[2024-08-16 06:12] LABS: CALCIUM 8.2 mg/dL (8.5-10.3); CREATININE 0.8 mg/dL (0.6-1.3); POTASSIUM 3.6 mmol/L (3.5-4.5)
[2024-08-16 06:31] LABS: ABNORMAL LYMPHS % (MANUAL) 0 %; BAND NEUTROPHILS % (MANUAL) 0 %
[2024-08-16 06:35] LABS: EOSINOPHILS # (MANUAL) 0.3 10^3/uL (0-0.7); LYMPHOCYTES # (MANUAL) 1.7 10^3/uL (1.5-3.5); LYMPHOCYTES % (MANUAL) 13 %; METAMYELOCYTES % (MANUAL) 2 %; MONOCYTES # (MANUAL) 2.2 10^3/uL (0.0-1.0); NEUTROPHILS # (MANUAL) 8.5 10^3/uL (1.5-6.6)
[2024-08-16 06:36] LABS: PLATELET ESTIMATE, MANUAL INCREASED (>450,000) (NORMAL); PLATELET MORPHOLOGY 1+ LARGE PLATELETS (NORMAL); RBC MORPHOLOGY (MULTIPLE) 1+ ANISOCYTOSIS (NORMAL)
[2024-08-16 06:37] LABS: DIFFERENTIAL COMMENT MANUAL DIFFERENTIAL
--- NOTE | 2024-08-16 11:11 | PROVIDER PROGRESS NOTE ---
Subjective Prog Note Date Prog Note Date: 08/16/24 Prog Note Time: 11:05 Subjective Pt reports feeling: Improved Subjective: H&P was conducted via video remotely, using [employer]. Patient is in [place]. Physician is in [place]. FLOUR BROKER is at bedside. Unable to obtain history from pt d/t pt's clinical condition/drowsiness. RN reports that he just received another dose of Ativan. History obtained from staff, chart. 59 yo M with PMH of ETOH abuse with h/o withdrawal seizures and Tobacco use presented to the ER from a local ETOH Detox facility for c/o 1 day h/o Fever, SOB, cough. Pt has a long h/o ETOH abuse with previous hospitalizations and rehab facility stays. Pt admitted himself to alcohol withdrawal facility yesterday. His last drink was just prior to going to the facility. Pt received Ativan for tremors at 1300 today. He continued to have tremors and the staff noticed that he was coughing, had SOB, and checked his temp, which was 103F, so they sent him to the ER. In the ER, pt was reportedly tremulous, anxious and A+Ox3. His CIWA score was 20. He has since received Ativan IV and now is drowsy and unable to answer questions or follow commands. Pt had denied seizure, but he does have h/o withdrawal sz. He had denied N/V/abdo pain. HR 120-140, RR 30, T38.2C, SpO2 93% 2L NC O2 WBC 13.5, LA 2.4, Hgb 12.3, MCH 34, Na 129, Glc 145, AST 317, ALT 79, Mg 1.3, ETOH<10, BC x 2 pending Viral pathogen: Rhinovirus + CXR: R middle lobe infiltrate Pt has received Tylenol, Thiamine, Mag SO4 2 gm IV, Folate, Zofran, IVF x 3L, Ativan 5 mg IV, Rocephin/Vanco in the ER. 08/13/2024: Overnight pt became more lethargic and obtuse. Today pt is difficult to awake, unable to follow commands. Tachycardia and breathing in the high 20s. 08/14/2024: Patient slowly waking up. Tries to follow commands 08/15/2024: Patient is now awake, following commands. Oriented x 4. Patient states he is hungry and needs to have physical therapy before he goes home. 08/16/2024: Patient is concerned about his physical status/Deconditioning since he has not been out of bed today. Patient denies any alcohol withdrawal symptoms. Current Medications Current Medications Current Medications: Current Medications Generic Name Dose Route Start Last Admin Trade Name Freq PRN Reason Stop Dose Admin Acetaminophen 1,000 mg 08/15/24 10:20 08/15/24 16:03 Acetaminophen 500 Mg Tablet PO 1,000 mg Q6H PRN Administration Pain or Fever > 38C (100.4F) Albuterol 2.5 mg 08/10/24 21:53 Albuterol Neb 2.5 Mg/3 Ml INH Q4HR PRN Wheezing Ceftriaxone Sodium 2 gm 08/12/24 13:33 08/16/24 09:11 Ceftriaxone 2 Gm Vial IVP 2 gm DAILY SOLIS Administration Folic Acid 1 mg 08/15/24 09:00 08/16/24 09:11 Folic Acid 1 Mg Tablet PO 1 mg DAILY SOLIS Administration Heparin Sodium (Porcine) 5,000 unit 08/11/24 09:00 08/16/24 09:11 Heparin 5,000 Unit/Ml Vial SUBQ 5,000 unit BID SOLIS Administration Ibuprofen 400 mg 08/12/24 13:39 08/12/24 14:21 Ibuprofen 200 Mg/10 Ml Udc PO 400 mg Q6H PRN Administration Fever >101 Ipratropium [place] 0.5 mg 08/10/24 21:53 Ipratropium 0.2 Mg/Ml Neb INH Q6HR PRN Wheezing Nicotine 1 patch 08/11/24 14:31 08/15/24 09:32 Nicotine 21 Mg Patch TOP Not Given DAILY SOLIS Ondansetron HCl 4 mg 08/10/24 21:53 Ondansetron Odt 4 Mg Tablet TL Q6HR PRN Nausea / Vomiting Ondansetron HCl 4 mg 08/10/24 21:53 Ondansetron 4 Mg/2 Ml Vial IVP Q6HR PRN Nausea / Vomiting Sodium Chloride 10 ml 08/11/24 01:00 08/16/24 09:12 Sodium Chloride Flush 0.9% 10 Ml Syringe IVP 10 ml 0100,0900,1700 SOLIS Administration Sodium Chloride 10 ml 08/10/24 21:53 08/14/24 06:45 Sodium Chloride Flush 0.9% 10 Ml Syringe IVP 10 ml PRN PRN Administration NEEDED PER PROVIDER ORDERS Thiamine HCl 100 mg 08/15/24 09:00 08/16/24 09:11 Thiamine 100 Mg Tablet PO 100 mg DAILY SOLIS Administration Objective Vital Signs/Intake & Output Reviewed Vital Signs: Yes Vital Signs: Vital Signs x48h Temp Resp 08/16/24 03:34 36.8 C 22 Intake & Output: Intake & Output 08/14/24 08/15/24 08/16/24 08/17/24 05:59 05:59 05:59 05:59 Intake Total 3231.2 / 3231.2 2421.2 / 2421.2 2028 / 2028 477 / 477 Output Total 3050 / 3050 1395 / 1395 535 / 535 Balance 181.2 / 181.2 1026.2 / 1026.2 1494 / 1494 477 / 477 Weight (kg) 88.5 kg 88 kg 84.5 kg 84 kg Objective General Appearance: positive No acute distress and Lethargic Eyes Bilateral: positive Normal inspection, PERRL and EOMI ENT: positive ENT inspection nml Neck: positive Nml inspection and Trachea midline Respiratory: positive Chest non-tender and Rales Cardiovascular: positive No murmur, No gallop and Tachycardia Abdomen: positive Non-tender and No distention Skin: positive Color nml and No rash Extremities: positive Non-tender, Full ROM and Nml appearance Neurologic/Psychiatric: positive Oriented x3 and CN's nml (2-12) Lab Results 08/16/24 05:20 08/16/24 05:20 Other Labs: Lab Results x24hrs 08/16/24 Range/Units 05:20 WBC 12.9 H (4.8-10.8) x10^3/uL RBC 2.76 L (4.70-6.10) 10^6/uL Hgb 9.0 L (14.0-18.0) g/dL Hct 26.1 L (42.0-52.0) % MCV 94.6 H (80.0-94.0) fL MCH 32.6 H (27.0-31.0) pg MCHC 34.5 (32.0-36.0) g/dL RDW 15.2 H (12.0-15.0) % Plt Count 457 H (130-450) 10^3/uL MPV 10.9 (7.4-11.4) fL Neut # (Auto) Not Reportable Lymph # (Auto) Not Reportable [place] # (Auto) Not Reportable Eos # (Auto) Not Reportable Baso # (Auto) Not Reportable Absolute Nucleated RBC Not Reportable Total Counted 100 Band Neuts % (Manual) 0 (0 - 10) % Abnorm Lymph % (Manual) 0 % Metamyelocytes % 2 H ( - 0) % Nucleated RBC % Not Reportable Neutrophils # (Manual) 8.5 H (1.5-6.6) 10^3/uL Lymphocytes # (Manual) 1.7 (1.5-3.5) 10^3/uL Monocytes # (Manual) 2.2 H (0.0-1.0) 10^3/uL Eosinophils # (Manual) 0.3 (0-0.7) 10^3/uL Basophils # (Manual) 0.0 (0-0.1) 10^3/uL Differential Comment MANUAL DIFFERENTIAL Platelet Estimate INCREASED (>450,000) (NORMAL) Platelet Morphology 1+ LARGE PLATELETS (NORMAL) RBC Morph Micro Appear 1+ ANISOCYTOSIS (NORMAL) Sodium 133 L (135-145) mmol/L Potassium 3.6 (3.5-4.5) mmol/L Chloride 100 L (101-111) mmol/L Carbon Dioxide 27 (21-32) mmol/L Anion Gap 6.0 (6-13) BUN 17 (6-20) mg/dL Creatinine 0.8 (0.6-1.3) mg/dL Estimated GFR (MDRD) 99 (>89) Glucose 111 H (74-104) mg/dL Calcium 8.2 L (8.5-10.3) mg/dL ABX Reporting Has patient been on IV antibiotics over the past 48 hours?: Yes Sepsis Event Note (H) Evaluation Sepsis Documentation Tip Sheet: Sepsis present on admission Evaluation Current Stage of Sepsis: Severe sepsis Possible source of Sepsis: positive Pulmonary (Middle lobe pneumonia) Confirmed Source and Organism (if known) of Sepsis: strep pneumonia Sepsis Criteria Sepsis Criteria: Recorded Temperature greater than 38.3C or Less than 36C, Recorded Heart Rate greater than 90 bpm, Respiratory: Increasing oxygen requirements, WBC count greater than 12,000 or less than 4000, MAP less than 65 mmHg, SBP less than 90 mmHg and Metabolic: lactate > 2 mmol/L Current Stage of Sepsis: Sepsis Possible source of Sepsis: positive Pulmonary (Middle lobe pneumonia) Sepsis Criteria Sepsis Criteria: Recorded Temperature greater than 38.3C or Less than 36C, Recorded Heart Rate greater than 90 bpm, Respiratory: Increasing oxygen requirements, WBC count greater than 12,000 or less than 4000, MAP less than 65 mmHg, SBP less than 90 mmHg and Metabolic: lactate > 2 mmol/L Assessment/Plan Problem List (1) Pneumonia: Impression: Impression: Patient tested positive for rhinovirus on admission. Currently pt continued to have episodes of fever. Chest x-ray On admission Indicates a right middle lobe infiltrate, possible superimposed bacterial infection. Continue patient on Rocephin 04/05, Stop Flagyl Patient continues to be on 5 L nasal cannulae. Desats elevation ordered Patient Is not any respiratory distress however there are Rales on examination. Qualifiers: Pneumonia type: Rhinovirus Qualifiers: Pneumonia type: due to unspecified organism (2) Severe sepsis: Impression: Severe sepsis -- Resolved Leukocytosis has resolved. He is on Rocephin for strep pneumonia bacteremia and Flagyl for aspiration pneumonia. Hemodynamics have been stable. Lactic acid has resolved. Patient continues to have intermittent fevers likely secondary to pneumonia versus active acute alcohol withdrawal. (3) Elevated lactic acid level: Impression: Resolved (4) Alcohol withdrawal: Impression: Alcohol withdrawal -- resolved DC CIWA protocol. Patient has not needed Ativan since the evening of 08/13. Tremors and delirium has resolved. Start patient on diet. Qualifiers: Complication of substance-induced condition: uncomplicated Qualified Code(s): F10.930 - Alcohol use, unspecified with withdrawal, uncomplicated (5) Nicotine dependence with withdrawal: Impression: Patient on Nicotine patch Qualifiers: Nicotine product type: cigarettes Qualified Code(s): F17.213 - Nicotine dependence, cigarettes, with withdrawal (6) Bacteremia due to Gram-positive bacteria: Impression: Patient had 2 positive blood cultures on 08/10/2024 which resolved to strep pneumoniae. Patient was started on Rocephin. Repeat blood cultures on 08/11 indicated resolution of bacteremia Patient has episodic fever. Repeat blood cultures, UA and sputum culture for episodic fevers returned negative. Continue Rocephin 6 out of 7 for 1 more day. (7) Recurrent fever: Impression: Etiology unknown, Differential includes Viral pneumonia, Strep pneumonia bacteremia and alcohol withdrawal Patient does not have any indication of DVT on examination. He is on Pharmaceutical anticoagulation. Plan: Panculture patient, Tylenol IV as needed Today Patient's WBC Decreased from 13.3-12.9.Patient had 1 episode of fever last night. This has now resolved. Repeat blood cultures, UA and sputum culture were negative. Continue to monitor.
[2024-08-17 05:43] LABS: BASOPHILS % (AUTO) 0.7 %; EOSINOPHILS % (AUTO) 3.1 %; HCT - HEMATOCRIT 27.3 % (42.0-52.0); HGB - HEMOGLOBIN 9.1 g/dL (14.0-18.0); LYMPHOCYTES % (AUTO) 17.4 %; MEAN CORPUSCULAR HEMOGLOBIN 32.3 pg (27.0-31.0); MEAN CORPUSCULAR HGB CONC 33.3 g/dL (32.0-36.0); MEAN CORPUSCULAR VOLUME 96.8 fL (80.0-94.0); MEAN PLATELET VOLUME 10.8 fL (7.4-11.4); MONOCYTES % (AUTO) 11.2 %; NEUTROPHILS % (AUTO) 56.4 %; PLT - PLATELET COUNT 491 10^3/uL (130-450); RED BLOOD COUNT 2.82 10^6/uL (4.70-6.10); RED CELL DISTRIBUTION WIDTH 15.2 % (12.0-15.0); WHITE BLOOD COUNT 10.8 x10^3/uL (4.8-10.8)
[2024-08-17 05:51] LABS: SLIDE REVIEW? Indicated
[2024-08-17 05:52] LABS: ABNORMAL LYMPHS % (MANUAL) 0 %
[2024-08-17 06:01] LABS: CALCIUM 8.4 mg/dL (8.5-10.3); CREATININE 0.7 mg/dL (0.6-1.3); POTASSIUM 3.7 mmol/L (3.5-4.5)
[2024-08-17 06:07] LABS: BAND NEUTROPHILS % (MANUAL) 1 %; EOSINOPHILS # (MANUAL) 0.2 10^3/uL (0-0.7); LYMPHOCYTES # (MANUAL) 2.2 10^3/uL (1.5-3.5); LYMPHOCYTES % (MANUAL) 20 %; METAMYELOCYTES % (MANUAL) 2 %; MONOCYTES # (MANUAL) 0.8 10^3/uL (0.0-1.0); MYELOCYTES % (MANUAL) 8 %; NEUTROPHILS # (MANUAL) 6.6 10^3/uL (1.5-6.6)
[2024-08-17 06:08] LABS: DIFFERENTIAL COMMENT MANUAL DIFFERENTIAL; PLATELET ESTIMATE, MANUAL NORMAL (130-450,000) (NORMAL); PLATELET MORPHOLOGY NORMAL APPEARANCE (NORMAL); RBC MORPHOLOGY (MULTIPLE) NORMAL APPEARANCE (NORMAL); WBC MORPHOLOGY (MULTIPLE) NORMAL APPEARANCE (NORMAL)
--- NOTE | 2024-08-17 13:41 | PROVIDER PROGRESS NOTE ---
Subjective Prog Note Date Prog Note Date: 08/17/24 Prog Note Time: 13:34 Subjective Pt reports feeling: Improved Subjective: H&P was conducted via video remotely, using [employer]. Patient is in [place]. Physician is in [place]. WELDER TECH is at bedside. Unable to obtain history from pt d/t pt's clinical condition/drowsiness. RN reports that he just received another dose of Ativan. History obtained from staff, chart. 59 yo M with PMH of ETOH abuse with h/o withdrawal seizures and Tobacco use presented to the ER from a local ETOH Detox facility for c/o 1 day h/o Fever, SOB, cough. Pt has a long h/o ETOH abuse with previous hospitalizations and rehab facility stays. Pt admitted himself to alcohol withdrawal facility yesterday. His last drink was just prior to going to the facility. Pt received Ativan for tremors at 1300 today. He continued to have tremors and the staff noticed that he was coughing, had SOB, and checked his temp, which was 103F, so they sent him to the ER. In the ER, pt was reportedly tremulous, anxious and A+Ox3. His CIWA score was 20. He has since received Ativan IV and now is drowsy and unable to answer questions or follow commands. Pt had denied seizure, but he does have h/o withdrawal sz. He had denied N/V/abdo pain. HR 120-140, RR 30, T38.2C, SpO2 93% 2L NC O2 WBC 13.5, LA 2.4, Hgb 12.3, MCH 34, Na 129, Glc 145, AST 317, ALT 79, Mg 1.3, ETOH<10, BC x 2 pending Viral pathogen: Rhinovirus + CXR: R middle lobe infiltrate Pt has received Tylenol, Thiamine, Mag SO4 2 gm IV, Folate, Zofran, IVF x 3L, Ativan 5 mg IV, Rocephin/Vanco in the ER. 08/13/2024: Overnight pt became more lethargic and obtuse. Today pt is difficult to awake, unable to follow commands. Tachycardia and breathing in the high 20s. 08/14/2024: Patient slowly waking up. Tries to follow commands 08/15/2024: Patient is now awake, following commands. Oriented x 4. Patient states he is hungry and needs to have physical therapy before he goes home. 08/16/2024: Patient is concerned about his physical status/Deconditioning since he has not been out of bed today. Patient denies any alcohol withdrawal symptoms. 08/17/2024.: Patient has no complaints, he has some concerns about his physical extremities however he refused PT yesterday. Patient also refused heparin at nighttime. Patient states normally his very active and he could walk around the room. Current Medications Current Medications Current Medications: Current Medications Generic Name Dose Route Start Last Admin Trade Name Freq PRN Reason Stop Dose Admin Acetaminophen 1,000 mg 08/15/24 10:20 08/15/24 16:03 Acetaminophen 500 Mg Tablet PO 1,000 mg Q6H PRN Administration Pain or Fever > 38C (100.4F) Albuterol 2.5 mg 08/10/24 21:53 Albuterol Neb 2.5 Mg/3 Ml INH Q4HR PRN Wheezing Ceftriaxone Sodium 2 gm 08/12/24 13:33 08/17/24 08:43 Ceftriaxone 2 Gm Vial IVP 2 gm DAILY SOLIS Administration Folic Acid 1 mg 08/15/24 09:00 08/17/24 08:43 Folic Acid 1 Mg Tablet PO 1 mg DAILY SOLIS Administration Heparin Sodium (Porcine) 5,000 unit 08/11/24 09:00 08/17/24 08:44 Heparin 5,000 Unit/Ml Vial SUBQ 5,000 unit BID SOLIS Administration Ibuprofen 400 mg 08/12/24 13:39 08/12/24 14:21 Ibuprofen 200 Mg/10 Ml Udc PO 400 mg Q6H PRN Administration Fever >101 Ipratropium [place] 0.5 mg 08/10/24 21:53 Ipratropium 0.2 Mg/Ml Neb INH Q6HR PRN Wheezing Nicotine 1 patch 08/11/24 14:31 08/17/24 08:43 Nicotine 21 Mg Patch TOP Not Given DAILY SOLIS Ondansetron HCl 4 mg 08/10/24 21:53 Ondansetron Odt 4 Mg Tablet TL Q6HR PRN Nausea / Vomiting Ondansetron HCl 4 mg 08/10/24 21:53 Ondansetron 4 Mg/2 Ml Vial IVP Q6HR PRN Nausea / Vomiting Sodium Chloride 10 ml 08/11/24 01:00 08/17/24 09:50 Sodium Chloride Flush 0.9% 10 Ml Syringe IVP 10 ml 0100,0900,1700 SOLIS Administration Sodium Chloride 10 ml 08/10/24 21:53 08/14/24 06:45 Sodium Chloride Flush 0.9% 10 Ml Syringe IVP 10 ml PRN PRN Administration NEEDED PER PROVIDER ORDERS Thiamine HCl 100 mg 08/15/24 09:00 08/17/24 08:43 Thiamine 100 Mg Tablet PO 100 mg DAILY SOLIS Administration Objective Vital Signs/Intake & Output Reviewed Vital Signs: Yes Vital Signs: Vital Signs x48h Temp Pulse BP Pulse Ox 08/17/24 08:07 36.4 C L 88 102/61 94 Intake & Output: Intake & Output 08/15/24 08/16/24 08/17/24 08/18/24 05:59 05:59 05:59 05:59 Intake Total 2421.2 / 2421.2 2028 / 2028 817 / 817 400 / 400 Output Total 1395 / 1395 535 / 535 200 / 200 Balance 1026.2 / 1026.2 1494 / 1494 817 / 817 200 / 200 Weight (kg) 88 kg 84.5 kg 84 kg 82 kg Objective General Appearance: positive No acute distress and Lethargic Eyes Bilateral: positive Normal inspection, PERRL and EOMI ENT: positive ENT inspection nml Neck: positive Nml inspection and Trachea midline Respiratory: positive Chest non-tender and Rales Cardiovascular: positive No murmur, No gallop and Tachycardia Abdomen: positive Non-tender and No distention Skin: positive Color nml and No rash Extremities: positive Non-tender, Full ROM and Nml appearance Neurologic/Psychiatric: positive Oriented x3 and CN's nml (2-12) Lab Results 08/17/24 05:24 08/17/24 05:24 Other Labs: Lab Results x24hrs 08/17/24 Range/Units 05:24 WBC 10.8 (4.8-10.8) x10^3/uL RBC 2.82 L (4.70-6.10) 10^6/uL Hgb 9.1 L (14.0-18.0) g/dL Hct 27.3 L (42.0-52.0) % MCV 96.8 H (80.0-94.0) fL MCH 32.3 H (27.0-31.0) pg MCHC 33.3 (32.0-36.0) g/dL RDW 15.2 H (12.0-15.0) % Plt Count 491 H (130-450) 10^3/uL MPV 10.8 (7.4-11.4) fL Neut # (Auto) Not Reportable Lymph # (Auto) Not Reportable [place] # (Auto) Not Reportable Eos # (Auto) Not Reportable Baso # (Auto) Not Reportable Absolute Nucleated RBC Not Reportable Total Counted 100 Band Neuts % (Manual) 1 (0 - 10) % Abnorm Lymph % (Manual) 0 % Metamyelocytes % 2 H ( - 0) % Myelocytes % 8 H ( - 0) % Nucleated RBC % Not Reportable Neutrophils # (Manual) 6.6 (1.5-6.6) 10^3/uL Lymphocytes # (Manual) 2.2 (1.5-3.5) 10^3/uL Monocytes # (Manual) 0.8 (0.0-1.0) 10^3/uL Eosinophils # (Manual) 0.2 (0-0.7) 10^3/uL Basophils # (Manual) 0.0 (0-0.1) 10^3/uL Differential Comment MANUAL DIFFERENTIAL Manual Slide Review Indicated WBC Morphology NORMAL APPEARANCE (NORMAL) Platelet Estimate NORMAL (130-450,000) (NORMAL) Platelet Morphology NORMAL APPEARANCE (NORMAL) RBC Morph Micro Appear NORMAL APPEARANCE (NORMAL) Sodium 136 (135-145) mmol/L Potassium 3.7 (3.5-4.5) mmol/L Chloride 102 (101-111) mmol/L Carbon Dioxide 28 (21-32) mmol/L Anion Gap 6.0 (6-13) BUN 12 (6-20) mg/dL Creatinine 0.7 (0.6-1.3) mg/dL Estimated GFR (MDRD) 115 (>89) Glucose 114 H (74-104) mg/dL Calcium 8.4 L (8.5-10.3) mg/dL Diagnostic Imaging Diagnostic Imaging Results: positive Final report reviewed ABX Reporting Has patient been on IV antibiotics over the past 48 hours?: Yes Sepsis Event Note (H) Evaluation Sepsis Documentation Tip Sheet: Sepsis present on admission Evaluation Current Stage of Sepsis: Severe sepsis Possible source of Sepsis: positive Pulmonary (Middle lobe pneumonia) Confirmed Source and Organism (if known) of Sepsis: strep pneumonia Sepsis Criteria Sepsis Criteria: Recorded Temperature greater than 38.3C or Less than 36C, Recorded Heart Rate greater than 90 bpm, Respiratory: Increasing oxygen requirements, WBC count greater than 12,000 or less than 4000, MAP less than 65 mmHg, SBP less than 90 mmHg and Metabolic: lactate > 2 mmol/L Current Stage of Sepsis: Sepsis Possible source of Sepsis: positive Pulmonary (Middle lobe pneumonia) Sepsis Criteria Sepsis Criteria: Recorded Temperature greater than 38.3C or Less than 36C, Recorded Heart Rate greater than 90 bpm, Respiratory: Increasing oxygen requirements, WBC count greater than 12,000 or less than 4000, MAP less than 65 mmHg, SBP less than 90 mmHg and Metabolic: lactate > 2 mmol/L Assessment/Plan Problem List (1) Pneumonia: Impression: Impression: Patient tested positive for rhinovirus on admission. Fevers have resolved. Patient completed his IV antibiotic regimen. Patient is in on 2-4 nasal cannulae and satting between 88 and 94. He does desat on Desat study to 87% on room air Qualifiers: Pneumonia type: Rhinovirus Qualifiers: Pneumonia type: due to unspecified organism (2) Severe sepsis: Impression: Severe sepsis -- Resolved (3) Elevated lactic acid level: Impression: Resolved (4) Alcohol withdrawal: Impression: Alcohol withdrawal -- resolved Qualifiers: Complication of substance-induced condition: uncomplicated Qualified Code(s): F10.930 - Alcohol use, unspecified with withdrawal, uncomplicated (5) Nicotine dependence with withdrawal: Impression: Patient on Nicotine patch Qualifiers: Nicotine product type: cigarettes Qualified Code(s): F17.213 - Nicotine dependence, cigarettes, with withdrawal (6) Bacteremia due to Gram-positive bacteria: Impression: Patient had 2 positive blood cultures on 08/10/2024 which resolved to strep pneumoniae. Patient was started on Rocephin. Repeat blood cultures on 08/11 indicated resolution of bacteremia Patient completed his IV ABX treatment. No leukocytosis, no fevers. (7) Recurrent fever: Impression: Resolved
[2024-08-18] MEDS: MELATONIN 3 MG TABLET PO PRN (00:45)
[2024-08-18 05:29] LABS: BASOPHILS % (AUTO) 0.8 %; EOSINOPHILS % (AUTO) 3.1 %; HCT - HEMATOCRIT 27.1 % (42.0-52.0); HGB - HEMOGLOBIN 9.1 g/dL (14.0-18.0); LYMPHOCYTES % (AUTO) 20.7 %; MEAN CORPUSCULAR HGB CONC 33.6 g/dL (32.0-36.0); MEAN CORPUSCULAR VOLUME 98.2 fL (80.0-94.0); MEAN PLATELET VOLUME 10.6 fL (7.4-11.4); MONOCYTES % (AUTO) 10.8 %; NEUTROPHILS % (AUTO) 56.1 %; PLT - PLATELET COUNT 515 10^3/uL (130-450); RED BLOOD COUNT 2.76 10^6/uL (4.70-6.10); RED CELL DISTRIBUTION WIDTH 15.4 % (12.0-15.0); WHITE BLOOD COUNT 11.4 x10^3/uL (4.8-10.8)
[2024-08-18 05:34] LABS: ABNORMAL LYMPHS % (MANUAL) 0 %; BAND NEUTROPHILS % (MANUAL) 0 %
[2024-08-18 05:45] LABS: CALCIUM 8.6 mg/dL (8.5-10.3); CREATININE 0.9 mg/dL (0.6-1.3)
[2024-08-18 06:14] LABS: EOSINOPHILS # (MANUAL) 0.5 10^3/uL (0-0.7); LYMPHOCYTES # (MANUAL) 3.1 10^3/uL (1.5-3.5); LYMPHOCYTES % (MANUAL) 27 %; METAMYELOCYTES % (MANUAL) 3 %; MYELOCYTES % (MANUAL) 1 %; NEUTROPHILS # (MANUAL) 6.4 10^3/uL (1.5-6.6)
[2024-08-18 06:15] LABS: DIFFERENTIAL COMMENT MANUAL DIFFERENTIAL; PLATELET ESTIMATE, MANUAL INCREASED (>450,000) (NORMAL); PLATELET MORPHOLOGY NORMAL APPEARANCE (NORMAL); RBC MORPHOLOGY (MULTIPLE) NORMAL APPEARANCE (NORMAL); WBC MORPHOLOGY (MULTIPLE) NORMAL APP (NORMAL)
[2024-08-18 08:26] VITALS: O2SAT 90
[2024-08-18] MEDS: MELATONIN 3 MG TABLET PO ONE (08:30)
--- NOTE | 2024-08-18 13:38 | Discharge Summary ---
Discharge Summary Admit Date: 08/10/24 Discharge Date: 08/18/24 Discharging Provider: [email or web address] Code Status: Attempt Resuscitation Discharge Facility Name: home DIAGNOSES Admission Diagnoses: Severe sepsis Pneumonia Lactic acidosis Alcohol use disorder With acute Alcohol withdrawal Nicotine use disorder Discharge Diagnoses with Status of Each Condition: Severe sepsis: Resolved Pneumonia: Treated with IV antibiotics, resolved Lactic acidosis resolved Acute alcohol withdrawal: No incidents of seizures, resolved Nicotine use disorder: Patient refused nicotine patch HPI History of Present Illness: H&P was conducted via video remotely, using [employer]. Patient is in [place]. Physician is in [place]. PRESS CLIPPER is at bedside. Unable to obtain history from pt d/t pt's clinical condition/drowsiness. RN reports that he just received another dose of Ativan. History obtained from staff, chart. 59 yo M with PMH of ETOH abuse with h/o withdrawal seizures and Tobacco use presented to the ER from a local ETOH Detox facility for c/o 1 day h/o Fever, SOB, cough. Pt has a long h/o ETOH abuse with previous hospitalizations and rehab facility stays. Pt admitted himself to alcohol withdrawal facility yesterday. His last drink was just prior to going to the facility. Pt received Ativan for tremors at 1300 today. He continued to have tremors and the staff noticed that he was coughing, had SOB, and checked his temp, which was 103F, so they sent him to the ER. In the ER, pt was reportedly tremulous, anxious and A+Ox3. His CIWA score was 20. He has since received Ativan IV and now is drowsy and unable to answer questions or follow commands. Pt had denied seizure, but he does have h/o withdrawal sz. He had denied N/V/abdo pain. HR 120-140, RR 30, T38.2C, SpO2 93% 2L NC O2 WBC 13.5, LA 2.4, Hgb 12.3, MCH 34, Na 129, Glc 145, AST 317, ALT 79, Mg 1.3, ETOH<10, BC x 2 pending Viral pathogen: Rhinovirus + CXR: R middle lobe infiltrate Pt has received Tylenol, Thiamine, Mag SO4 2 gm IV, Folate, Zofran, IVF x 3L, Ativan 5 mg IV, Rocephin/Vanco in the ER. HOSPITAL COURSE Hospital Course: Patient was admitted for shortness of breath on 08/10/2024. Chest x-ray indicated Midlung infiltrate. Patient was started on Rocephin and azithromycin, Anaerobic coverage was added for possible aspiration pneumonia. Most likely patient had a rhinovirus pneumonia with Superimposed bacterial. Patient concluded with antibiotic treatment and respiratory status was back at baseline. Patient has had episodic fever during this admission which was likely secondary to either alcohol withdrawal versus pneumonia. On discharge patient had been afebrile, No leukocytosis. Patient underwent severe alcohol withdrawal symptoms. He was on CIWA protocol and thiamine and folic acid replacement. Patient had no episode of seizures. Patient was seen by PT and RT for O2 assessment on exertion. Patient with status returned to baseline. PT recommended outpatient rehab. Patient was discharged on 08/18/2024 stable condition. ALLERGIES Allergies Allergy/AdvReac Type Severity Reaction Status Date / Time No Known Drug Allergies Allergy Verified 08/10/24 18:21 MEDICATIONS Ambulatory Orders Medication Instructions Recorded Confirmed No Known Home Medications 10/17/21 08/11/24 PHYSICAL EXAM AT DISCHARGE General Appearance: positive No acute distress and Alert Eyes Bilateral: positive Normal inspection and PERRL ENT: positive ENT inspection nml and Pharynx nml Respiratory: positive Chest non-tender and No respiratory distress Cardiovascular: positive Regular rate & rhythm and No murmur Abdomen: positive Non-tender, No organomegaly and No distention Skin: positive Color nml, No rash and Warm Extremities: positive Non-tender and Full ROM LABS 08/18/24 05:05 08/18/24 05:05 DIAGNOSTIC IMAGING Diagnostic Imaging Results: Final report reviewed SEPSIS Current Stage of Sepsis: Sepsis Possible source of Sepsis: Pulmonary (Middle lobe pneumonia) Sepsis Criteria: Recorded Temperature greater than 38.3C or Less than 36C, Recorded Heart Rate greater than 90 bpm, Respiratory: Increasing oxygen requirements, WBC count greater than 12,000 or less than 4000, MAP less than 65 mmHg, SBP less than 90 mmHg and Metabolic: lactate > 2 mmol/L FOLLOW UP Follow Up: Outpatient Physical therapy rehab TIME SPENT Time Spent in Discharge (Minutes): 35 Discharge Plan Discharge Patient Disposition: Home, Self Care Condition: Fair Medically Cleared Date:: 08/18/24 Prescriptions: No Action No Known Home Medications Activity Restrictions: Please follow-up with out Diet: Regular Print Language: Syriac Patient Instructions: Pneumonia, Addiction Alcohol, Withdrawal Alcohol What Expect, Smoking and PAD Stand Alone Forms: PCP List
== END 2024-08-18 13:10 | disposition home or self-care (01) | DRG 871 ==
LOC: ED 18:15 → ICU 21:53 → MS2 08-15 12:18
PROVIDERS: ADMIT Internal Medicine; ATTEND Internal Medicine
DX: E87.20 Acidosis, unspecified; A41.89 Other specified sepsis; J12.89 Other viral pneumonia; I10 Essential (primary) hypertension; F17.213 Nicotine dependence, cigarettes, with withdrawal; Z20.822 Contact with and (suspected) exposure to COVID-19; Z20.828 Contact with and (suspected) exposure to other viral communicable diseases; B97.89 Other viral agents as the cause of diseases classified elsewhere; R73.9 Hyperglycemia, unspecified; D53.9 Nutritional anemia, unspecified; J15.4 Pneumonia due to other streptococci; Z20.818 Contact with and (suspected) exposure to other bacterial communicable diseases; A40.9 Streptococcal sepsis, unspecified; E83.42 Hypomagnesemia; F10.130 Alcohol abuse with withdrawal, uncomplicated; R65.20 Severe sepsis without septic shock; E87.1 Hypo-osmolality and hyponatremia